=== PATIENT | male | born 1980 | race Caucasian/White ===

== ENCOUNTER 2023-11-01 22:47 | Emergency (ER) | payer BC, SELFPAY ==
--- NOTE | ~2023-11-01 | CT_ITS ---
EXAMINATION: CT cervical spine wo con DATE: 11/01/2023 23:58 INDICATION: Neck pain TECHNIQUE: Computed tomography (CT) of the cervical spine was performed without intravenous contrast. The dose-length product (DLP) was 522.23 mGy-cm. Automated exposure control and iterative reconstruc tion technique were employed. COMPARISON: None FINDINGS: Bone alignment is normal. There is no fracture. The vertebral body heights and intervertebr al disc spaces are normal. The odontoid process is intact. IMPRESSION: 1. No acute osseous abnormality. Reviewed, dictated and finalized at location F.
--- NOTE | ~2023-11-01 | CT_ITS ---
EXAMINATION: CT brain wo con INDICATION: Headache COMPARISON: None TECHNIQUE: Standard unenhanced head CT. The dose-length product (DLP) was 756.67 mGy-cm. The mA was a djusted according to patient size. Iterative reconstruction technique was employed. FINDINGS: No intracranial hemorrhage, acute infarction, or abnormal mass lesion. The ventricles are n ormal. No abnormal mass effect or midline shift. The soni-white matter differentiation is normal. The basal cisterns are patent. The orbits are normal. There is a polyp or mucous retention cyst of the r ight maxillary sinus. IMPRESSION: 1. No acute intracranial abnormality. Reviewed, dictated and finalized at location F.
--- NOTE | ~2023-11-01 | CT_ITS ---
EXAMINATION: CT facial bones wo con DATE: 11/01/2023 23:57 INDICATION: Facial pain TECHNIQUE: Computed tomography (CT) of the facial bones and maxillofacial region was performed withou t intravenous contrast. The dose-length product (DLP) was 550.77 mGy-cm. Automated exposure control a nd iterative reconstruction technique were employed. COMPARISON: None. FINDINGS: No facial fracture is identified. The globes and orbits are normal. The soft tissues are un remarkable. There is a polyp or mucous retention cyst of the right maxillary sinus. IMPRESSION: 1. No facial fracture identified. Reviewed, dictated and finalized at location F.
--- NOTE | ~2023-11-01 | XR_ITS ---
XR shoulder RT min 2V 11/02/2023 01:37 INDICATION: Right shoulder pain PROCEDURE: 4 views right shoulder COMPARISON: No prior studies for comparison. FINDINGS: Fracture, dislocation or subluxation is not identified. The soft tissues appear within norm al limits. No foreign bodies are identified. IMPRESSION: 1: NO ACUTE BONE OR JOINT ABNORMALITY IDENTIFIED. Reviewed, dictated and finalized at location A.
--- NOTE | ~2023-11-01 | XR_ITS ---
EXAMINATION: XR chest 2V 11/02/2023 01:37 INDICATION: Chest pain PROCEDURE: 2 view chest COMPARISON: No prior studies for comparison. FINDINGS: The lungs are clear. The cardiomediastinal silhouette is within normal limits. There are no pleural effusions. There is no pneumothorax suspected. IMPRESSION: 1: NO ACUTE CARDIOPULMONARY DISEASE. Reviewed, dictated and finalized at location A.
[2023-11-01 23:09] VITALS: BP 122/79; PULSE 69; RESP 15; TEMP 36.2; O2SAT 100
[2023-11-02 00:41] VITALS: BP 151/77; PULSE 77; RESP 18; O2SAT 100
[2023-11-02 00:47] VITALS: BP 139/80; PULSE 70; RESP 20; O2SAT 99
[2023-11-02 01:02] VITALS: BP 123/95; PULSE 72; RESP 18; O2SAT 100
[2023-11-02 01:17] VITALS: BP 128/87; PULSE 71; RESP 20; O2SAT 100
--- NOTE | 2023-11-02 01:17 | ECG_ITS ---
Measurements Intervals [place] Rate: 74 P: 29 GA: 161 QRS: 23 QRSD: 107 T: 22 QT: 429 QTc: 478 Interpretive Statements SINUS RHYTHM FREQUENT VENTRICULAR PREMATURE COMPLEXES CONSIDER INFERIOR INFARCT, AGE INDETERMINATE BASELINE ARTIFACT- I, II, AVR ABNORMAL ECG NO PREVIOUS ECG AVAILABLE FOR COMPARISON Electronically Signed On 11-02-2023 7:28:59 CDT by Frederic Aleman D.O.
--- NOTE | 2023-11-02 01:44 | ED.FALL ---
HPI - Fall General Chief Complaint: Fall Stated Complaint: GLF- L eye bruising/R shoulder pain/lumbar pain Time Seen by Provider: 11/01/23 23:16 History of Present Illness HPI Narrative: 43-year-old male presents emergency department for evaluation for injuries sustained from a ground level fall. Patient states he was walking when his right knee gave out causing him to fall to the ground. Patient did land on his right shoulder and also injured the left side of his face. Patient denies any loss of consciousness. Patient does take Plavix. Patient does complain of right shoulder pain, left facial pain and chest pain. Related Data Allergies Allergy/AdvReac Type Severity Reaction Status Date / Time Penicillins AdvReac Rash Verified 11/02/23 00:37 Review of Systems Review of Systems: All systems reviewed & are unremarkable except as noted in HPI and below Exam Narrative: APPEARANCE: Well appearing, no pain, no distress, well-nourished. HEAD: normocephalic, contusion to left eye. EYES: PERRLA/EOMI, conjunctivae clear. NOSE: Normal no drainage EARS:TMS clear with good light reflex. THROAT: Pharynx clear, no exudate. NECK: Supple. No adenopathy, no masses. RESPIRATORY: Airway patent, respirations nonlabored. Clear to auscultation bilaterally, no rales, rhonchi, wheezing. CARDIOVASCULAR: Regular rate and rhythm without murmurs rubs or gallops. ABDOMINAL: Soft, nontender, nondistended, normal bowel sounds MUSCULOSKELETAL: Moves all extremities. Tenderness to palpation of right shoulder with no deformity, normal range of motion NEURO: Alert. Cranial nerves II through XII intact. Good gait. Good coordination SKIN: Warm, dry. Normal Color Course Course Emergency Course: Patient was updated on his results and was discharged to home Vital Signs Vital signs: Vital Signs Temperature 97.2 F L 11/01/23 23:09 Pulse Rate 69 11/01/23 23:09 Respiratory Rate 15 11/01/23 23:09 Blood Pressure 122/79 11/01/23 23:09 Pulse Oximetry 100 11/01/23 23:09 Temperature 97.2 F L 11/01/23 23:09 Pulse Rate 72 11/02/23 03:45 Respiratory Rate 20 11/02/23 03:45 Blood Pressure 128/87 11/02/23 01:17 Pulse Oximetry 97 11/02/23 03:45 MDM - Fall MDM Narrative Medical decision making narrative: 43-year-old male present to the emergency department for evaluation after having a ground level fall. Patient reports he was having some chest pain after the fall. Patient does have a cardiac history. Patient is afebrile with no leukocytosis and a stable hemoglobin. Patient has no acute abnormalities on his CMP patient is negative serial troponins. CT head face and neck showed no acute abnormalities. Shoulder x-ray showed no acute abnormality chest x-ray showed no acute cardiopulmonary abnormality. Patient did feel improved with treatment. Patient was encouraged of close follow-up with his primary care physician and with cardiology. All questions concerns were addressed. Differential Diagnosis Differential diagnosis: Likely dislocation of shoulder region, compression fracture and concussion without loss of consciousness Lab Data Attestation: I reviewed the patient's lab results. 11/02/23 01:49 11/02/23 01:49 Labs: Lab Results 11/02/23 11/02/23 Range/Units 01:49 04:34 WBC 5.6 (4.5-10.0) K/mm3 RBC 4.41 L (4.6-6.20) M/mm3 Hgb 13.6 L (14.0-18.0) g/dL Hct 40.3 L (42.0-52.0) % MCV 91.4 (80-100) fl MCH 30.8 (26-34) pg MCHC 33.7 (32-36) g/dl RDW 13.3 (11.5-14.5) % Plt Count 175 (150-375) k/mm3 MPV 8.9 (7.4-10.4) fl Immature Gran % (Auto) 0.5 (0-0.5) % Neut % (Auto) 54.0 (45.5-73.1) % Lymph % (Auto) 35.5 (18.3-44.2) % [place] % (Auto) 5.2 (2.6-8.5) % Eos % (Auto) 4.1 (0-4.4) % Baso % (Auto) 0.7 (0.2-1.2) % Lymph # (Auto) 1.99 (0.9-3.2) K/mm3 [place] # (Auto) 0.3 (0.1-0.6) K/mm3 Eos # (Auto) 0.2 (0-0.3) K/mm3 Baso # (Au
[2023-11-02 01:55] LABS: Basophils Percent Auto 0.7 % (0.2-1.2); Eosinophils Absolute Auto 0.2 K/mm3 (0-0.3); Eosinophils Percent Auto 4.1 % (0-4.4); Hematocrit 40.3 % (42.0-52.0); Hemoglobin 13.6 g/dL (14.0-18.0); Immature Granulocyte Absolute 0.03 K/mm3 (0.00-0.031); Immature Granulocyte Percent A 0.5 % (0-0.5); Lymphocytes Absolute Auto 1.99 K/mm3 (0.9-3.2); Lymphocytes Percent Auto 35.5 % (18.3-44.2); Mean Corpuscular HGB Conc 33.7 g/dl (32-36); Mean Corpuscular Hemoglobin 30.8 pg (26-34); Mean Corpuscular Volume 91.4 fl (80-100); Mean Platelet Volume 8.9 fl (7.4-10.4); Monocytes Absolute Auto 0.3 K/mm3 (0.1-0.6); Monocytes Percent Auto 5.2 % (2.6-8.5); Platelet Count Result 175 k/mm3 (150-375); Red Blood Count 4.41 M/mm3 (4.6-6.20); Red Cell Distribution Width 13.3 % (11.5-14.5); White Blood Count 5.6 K/mm3 (4.5-10.0)
[2023-11-02 02:14] LABS: Alanine Aminotransferase 33 U/L (6-50); Albumin Level 4.9 g/dL (3.5-5.1); Alkaline Phosphatase 74 U/L (38-126); Anion Gap 11 mmol/L (8-16); Aspartate Amino Transferase 40 U/L (17-59); Bilirubin,Total 0.8 mg/dL (0.2-1.3); Blood Urea Nitrogen 15 mg/dL (9-20); Calcium 9.5 mg/dL (8.4-10.2); Carbon Dioxide 22 mmol/L (22-30); Chloride 107 mmol/L (98-107); Estimated CRCL calculation 152 ml/min; Estimated Glomerular Filt Rate > 60; Glucose 85 mg/dL (65-110); Potassium 3.2 mmol/L (3.4-5.0); Sodium 140 mmol/L (137-145)
[2023-11-02 02:17] LABS: Troponin I < 0.012 ng/mL (0.000-0.034)
[2023-11-02] MEDS: HYDROcodone/acetaminophen (*CRX) 5-325 MG TABLET 1 TAB PO (03:08)
[2023-11-02 03:45] VITALS: PULSE 72; RESP 20; O2SAT 97
[2023-11-02 05:01] LABS: Troponin I < 0.012 ng/mL (0.000-0.034)
== END 2023-11-02 05:40 | disposition home or self-care (01) ==
PROVIDERS: Emergency Provider Emergency Medicine; PCP Internal Medicine Gastroenterology
DX: S49.91XA Unspecified injury of right shoulder and upper arm, initial encounter (principal); S05.12XA Contusion of eyeball and orbital tissues, left eye, initial encounter; Z79.02 Long term (current) use of antithrombotics/antiplatelets; I49.3 Ventricular premature depolarization; R94.31 Abnormal electrocardiogram [ECG] [EKG]; W18.39XA Other fall on same level, initial encounter
CPT/HCPCS: 36415; 70450; 70486; 71046; 72125; 73030; 80053; 84484; 85025; 93005; 99284; A4565; A9270

== ENCOUNTER 2024-05-13 21:03 | Emergency (ER) | payer SELFPAY ==
--- NOTE | ~2024-05-13 | CT_ITS ---
EXAMINATION: CTA chest PE abdomen pel DATE: 05/13/2024 22:53 INDICATION: Chest pain. Elevated lipase. TECHNIQUE: Computed tomography angiography (CTA) of the chest was performed with 100 mL Omnipaque-350 intravenous contrast timed to evaluate the pulmonary arteries. Coronal maximum intensity projection 3D-reconstructions were created by the technologist. Computed tomography (CT) of the abdomen and pelv is was performed with intravenous contrast. Automated exposure control and iterative reconstruction t echnique were employed. The dose-length product was 2393.48 mGy-cm. COMPARISON: None. FINDINGS: CTA chest: The lungs demonstrate mild atelectasis. No pleural effusion. The heart size is normal. The re are coronary artery calcifications. No pericardial effusion. There is no pulmonary embolus. There is mild thoracic spondylosis. There is a chronic compression fracture of T4. CT abdomen and pelvis: The liver, gallbladder, spleen, pancreas, adrenal glands, and kidneys are norm al. There are no dilated loops of bowel. The appendix is normal. There is calcified atherosclerosis o f the aorta and many of the other arteries. There are no pathologically enlarged lymph nodes. There i s no free intraperitoneal fluid. There is mild lumbar spondylosis. IMPRESSION: 1. No pulmonary embolus. 2. Normal pancreas. Reviewed, dictated and finalized at location A.
--- NOTE | ~2024-05-13 | XR_ITS ---
EXAMINATION: XR chest 2V DATE: 05/13/2024 21:47 INDICATION: Chest pain. TECHNIQUE: Frontal and lateral views of the chest were obtained. COMPARISON: Chest 2 views 11/02/2023 FINDINGS: There is no pneumonia, pleural effusion, or pneumothorax. The heart size is normal. There i s a chronic compression fracture in thoracic spine. IMPRESSION: 1. No acute cardiopulmonary disease. Reviewed, dictated and finalized at location A.
--- NOTE | 2024-05-13 21:05 | ECG_ITS ---
Test Date: 2024-05-13 21:16:09 Measurements Intervals [place] Rate: 85 P: 14 MT: 158 QRS: 15 QRSD: 107 T: 76 QT: 370 QTc: 441 Interpretive Statements SINUS RHYTHM WITH OCCASIONAL VENTRICULAR PREMATURE COMPLEXES NONSPECIFIC T-WAVE ABNORMALITY No previous ECG available for comparison Electronically Signed On 05-14-2024 11:59:36 CDT by Didier Elkins M.D.
[2024-05-13 21:10] VITALS: BP 146/96; PULSE 86; RESP 18; TEMP 36.3; O2SAT 100
[2024-05-13 21:50] LABS: Basophils Absolute Auto 0.1 K/mm3 (0.0-0.1); Basophils Percent Auto 0.6 % (0.2-1.2); Eosinophils Absolute Auto 0.2 K/mm3 (0-0.3); Eosinophils Percent Auto 2.4 % (0-4.4); Hematocrit 46.3 % (42.0-52.0); Immature Granulocyte Absolute 0.03 K/mm3 (0.00-0.031); Immature Granulocyte Percent A 0.4 % (0-0.5); Lymphocytes Absolute Auto 2.42 K/mm3 (0.9-3.2); Lymphocytes Percent Auto 30.9 % (18.3-44.2); Mean Corpuscular HGB Conc 36.7 g/dl (32-36); Mean Corpuscular Hemoglobin 32.7 pg (26-34); Mean Platelet Volume 8.8 fl (7.4-10.4); Monocytes Absolute Auto 0.6 K/mm3 (0.1-0.6); Monocytes Percent Auto 8.2 % (2.6-8.5); Neutrophils Absolute Auto 4.5 K/mm3 (1.3-6.7); Neutrophils Percent Auto 57.5 % (45.5-73.1); Platelet Count Result 154 k/mm3 (150-375); Red Cell Distribution Width 12.9 % (11.5-14.5); White Blood Count 7.8 K/mm3 (4.5-10.0)
[2024-05-13 22:01] VITALS: O2SAT 98
[2024-05-13 22:01] LABS: Prothrombin Time 13.1 Seconds (11.1-14.7)
[2024-05-13 22:02] VITALS: BP 175/90; PULSE 87; RESP 18; O2SAT 97
[2024-05-13 22:02] LABS: Alanine Aminotransferase 37 U/L (6-50); Albumin Level 4.7 g/dL (3.5-5.1); Alkaline Phosphatase 71 U/L (38-126); Anion Gap 11 mmol/L (4-12); Aspartate Amino Transferase 37 U/L (17-59); Bilirubin,Total 0.8 mg/dL (0.2-1.3); Blood Urea Nitrogen 5 mg/dL (9-20); Carbon Dioxide 24 mmol/L (22-30); Chloride 100 mmol/L (98-107); Estimated CRCL calculation 145 ml/min; Estimated Glomerular Filt Rate > 60; Glucose 129 mg/dL (65-110); Lipase 604 U/L (23-300); Potassium 3.4 mmol/L (3.4-5.0); Sodium 135 mmol/L (137-145)
[2024-05-13 22:13] LABS: Troponin I < 0.012 ng/mL (0.000-0.034)
[2024-05-13] MEDS: ASPIRIN 81 MG CHEWABLE TABLET 324 MG PO (22:33)
[2024-05-13 22:50] VITALS: BP 157/101; PULSE 90; RESP 14; O2SAT 98
[2024-05-13] MEDS: NITROGLYCERIN SL 0.4 MG TABLET SUBLINGUAL (23:16)
[2024-05-13] MEDS: ONDANSETRON INJ 4 MG/2 ML VIAL IV PUSH (23:16)
[2024-05-13] MEDS: MORPHINE SULFATE (*CRX) 4 MG/ML INJ IV PUSH (23:16)
[2024-05-14] MEDS: ACETAMINOPHEN 500 MG TABLET 1000 MG PO (01:22)
[2024-05-14 01:39] VITALS: BP 154/99; PULSE 87; RESP 15; O2SAT 97
[2024-05-14 01:58] LABS: Troponin I < 0.012 ng/mL (0.000-0.034)
--- NOTE | 2024-05-14 02:16 | ED.GENADULT ---
HPI - General Adult General Chief complaint: Chest Pain Stated complaint: chest pain, lightheadedness, sob Time Seen by Provider: 05/13/24 22:26 History of Present Illness HPI narrative: Patient is a 43-year-old gentleman presents emergency department with chief complaint of chest discomfort. Patient reports that he has been having intermittent discomforts this morning states that pain radiates to his back patient did report that he had some stents placed in September the patient states that he also has anxiety and reports that and also had some palpitations during the episode. Related Data Allergies Allergy/AdvReac Type Severity Reaction Status Date / Time Penicillins AdvReac Rash Verified 05/13/24 21:03 Review of Systems Review of Systems: A 10 system review of systems was completed on the patient and is negative except for what is stated in the HPI. Nursing and ancillary documentation was reviewed. Exam Narrative: GENERAL: Well-appearing, well-nourished, and in no acute distress. HEAD: Normocephalic, atraumatic. EYES: PERRLA and EOMI. ENT: Nares clear, no rhinorrhea or epistaxis. Mucous membranes moist. NECK: Supple. CHEST: Clear to auscultation. No respiratory distress. HEART: Regular rate and rhythm. No murmur heard. Normal peripheral pulses. ABDOMEN: Soft, nontender, nondistended, normal active bowel sounds. EXTREMITIES: Normal range of motion. No edema. SKIN: Warm, dry, no rash. NEURO: No focal deficits. Alert and oriented x3. PSYCH: Normal mood and affect. Course Vital Signs Vital signs: Vital Signs Temperature 36.3 C L 05/13/24 21:10 Pulse Rate 86 05/13/24 21:10 Respiratory Rate 18 05/13/24 21:10 Blood Pressure 146/96 H 05/13/24 21:10 Pulse Oximetry 100 05/13/24 21:10 Oxygen Delivery Room Air 05/13/24 21:10 Temperature 36.3 C L 05/13/24 21:10 Pulse Rate 87 05/14/24 01:39 Respiratory Rate 15 05/14/24 01:39 Blood Pressure 154/99 H 05/14/24 01:39 Pulse Oximetry 97 05/14/24 01:39 Oxygen Delivery Room Air 05/13/24 21:10 Medical Decision Making [facility] Narrative Medical decision making narrative: Differential diagnosis includes ACS, pulmonary embolism, pancreatitis, Laboratory studies were obtained on the patient which did show a mildly elevated lipase at 604 initial troponin was negative repeat troponin 3 hour level was negative. EKG showed no acute ischemic changes Vital Signs Vital Signs: Vital Signs Temperature 36.3 C L 05/13/24 21:10 Pulse Rate 86 05/13/24 21:10 Respiratory Rate 18 05/13/24 21:10 Blood Pressure 146/96 H 05/13/24 21:10 Pulse Oximetry 100 05/13/24 21:10 Oxygen Delivery Room Air 05/13/24 21:10 Temperature 36.3 C L 05/13/24 21:10 Pulse Rate 87 05/14/24 01:39 Respiratory Rate 15 05/14/24 01:39 Blood Pressure 154/99 H 05/14/24 01:39 Pulse Oximetry 97 05/14/24 01:39 Oxygen Delivery Room Air 05/13/24 21:10 Lab Data 05/13/24 21:43 05/13/24 21:43 Labs: Lab Results 05/13/24 05/14/24 Range/Units 21:43 01:28 WBC 7.8 (4.5-10.0) K/mm3 RBC 5.20 (4.6-6.20) M/mm3 Hgb 17.0 D (14.0-18.0) g/dL Hct 46.3 (42.0-52.0) % MCV 89.0 (80-100) fl MCH 32.7 (26-34) pg MCHC 36.7 H (32-36) g/dl RDW 12.9 (11.5-14.5) % Plt Count 154 (150-375) k/mm3 MPV 8.8 (7.4-10.4) fl Immature Gran % (Auto) 0.4 (0-0.5) % Neut % (Auto) 57.5 (45.5-73.1) % Lymph % (Auto) 30.9 (18.3-44.2) % [place] % (Auto) 8.2 (2.6-8.5) % Eos % (Auto) 2.4 (0-4.4) % Baso % (Auto) 0.6 (0.2-1.2) % Lymph # (Auto) 2.42 (0.9-3.2) K/mm3 [place] # (Auto) 0.6 (0.1-0.6) K/mm3 Eos # (Auto) 0.2 (0-0.3) K/mm3 Baso # (Auto) 0.1 (0.0-0.1) K/mm3 Abs Immat Gran (auto) 0.03 (0.00-0.031) K/mm3 Absolute Neuts (auto) 4.5 (1.3-6.7) K/mm3 Absolute Nucleated RBC 0.000 (0.0-0.012) K/mm3 Nucleated RBC % 0.0 (0.0-0.2) % PT 13.1 (11.1-14
[2024-05-14 02:55] VITALS: BP 158/90; PULSE 84; RESP 15; O2SAT 96
== END 2024-05-14 03:00 | disposition home or self-care (01) ==
PROVIDERS: Emergency Provider Emergency Medicine; PCP Internal Medicine Gastroenterology
DX: R07.89 Other chest pain (principal); R94.31 Abnormal electrocardiogram [ECG] [EKG]
CPT/HCPCS: 36415; 71046; 71275; 74177; 80053; 83690; 84484; 85025; 85610; 85730; 93005; 96374; 96375; 99284; A9270; J2270; J2405; Q9967

== ENCOUNTER 2025-01-01 11:23 | Emergency (ER) | payer BC, SELFPAY ==
--- NOTE | ~2025-01-01 | XR_ITS ---
EXAMINATION: XR chest 2V 01/01/2025 12:07 INDICATION: Chest pain PROCEDURE: 2 view chest COMPARISON: 08/19/2024 FINDINGS: The lungs are clear. The cardiomediastinal silhouette is within normal limits. There are no pleural effusions. There is no pneumothorax suspected. IMPRESSION: 1: NO ACUTE CARDIOPULMONARY DISEASE. Reviewed, dictated and finalized at location B.
--- NOTE | ~2025-01-01 | CT_ITS ---
CT abdomen pelvis w con Ordering provider: Cecilio Kaiser MD History: 44 years Male with . RLQ AP . Comparison: August 19, 2024 Technique: CT abdomen and pelvis with IV and without oral contrast. Automated exposure control and it erative reconstruction technique were employed. The dose-length product was 1296.05 mGy-cm. 100 mL Om nipaque 350 was given IV. Findings: VISUALIZED LOWER CHEST: Normal. UPPER ABDOMINAL ORGANS: Liver: Fat infiltration. Gallbladder: Contracted. Spleen: Normal. Stomach/duodenum: Thickening in the lower esophagus suggestive of ileus and ascites. Pancreas: Normal. Adrenals: Normal. Kidneys: Normal. PELVIC ORGANS: The bladder shows thickened wall. Evaluation for cystitis is advised. BOWEL AND MESENTERY: Colon: No evidence of diverticulitis.. Normal appendix. Small Bowel: Normal. No obstruction. Peritoneum/mesentery: No free air or free fluid. No mesenteric lymphadenopathy. Small mesenteric lymp h nodes are noted. RETROPERITONEUM: Moderate atheromatous disease of the abdominal aorta with intramural thrombi athero sclerotic changes in both iliac arteries with slight dilatation of the right is noted. The right mary grace ures 2.1 cm and the left measures 1.8 cm. No retroperitoneal lymphadenopathy. MUSCULOSKELETAL: Superficial soft tissues: The superficial soft tissues are normal. Bones: Age appropriate degenerative changes of the spine. IMPRESSION: 1. No evidence of appendicitis, diverticulitis or intestinal obstruction. 2. Fat infiltration of the liver. 3. Slight dilatation of the right internal iliac artery with intramural thrombus. 4. Thickened distal esophagus suggestive of reflux esophagitis. Reviewed, dictated and finalized at location A. IMPRESSION: 1. No evidence of appendicitis, diverticulitis or intestinal obstruction. 2. Fat infiltration of the liver. 3. Slight dilatation of the right internal iliac artery with intramural thromb us. 4. Thickened distal esophagus suggestive of reflux esophagitis.
--- NOTE | 2025-01-01 11:25 | ECG_ITS ---
Test Date: 2025-01-01 11:31:17 Measurements Intervals [place] Rate: 63 P: 171 WA: 157 QRS: 157 QRSD: 114 T: 114 QT: 397 QTc: 408 Interpretive Statements SINUS RHYTHM WITH OCCASIONAL VENTRICULAR PREMATURE COMPLEXES ARM LEADS REVERSED [INVERTED P AND QRS IN I] Compared to ECG 08/19/2024 14:58:43 Ventricular premature complex(es) now present Electronically Signed On 01-01-2025 12:45:44 CDT by Ashley Servin M.D.
--- OUTSIDE RECORDS SUMMARY | 2025-01-01 11:27 | XMS_ITS | Referral Summary ---
Author Organization [facility] Address [address] [place] [address] Care Team Providers Care Hem Marker Name Role Phone Duglas Campbell MD Primary Care Provider Allergies Active Allergy Reactions Criticality Noted Date Comments Penicillins Anaphylaxis High 10/20/2023 Medications ticagrelor (BRILINTA) 90 mg tablet Take 1 tablet (90 mg total) by mouth 2 (two) times a day Active metoprolol tartrate (LOPRESSOR) 50 mg immediate release tablet Take 1 tablet (50 mg total) by mouth 2 (two) times a day Active buPROPion SR (WELLBUTRIN SR) 150 mg 12 hr tablet Take 1 tablet (150 mg total) by mouth daily Active atorvastatin (LIPITOR) 80 mg tablet Take 1 tablet (80 mg total) by mouth daily Active oxyCODONE 5 mg tablet, oral only Take 5 mg by mouth every 6 (six) hours as needed Active gabapentin (NEURONTIN) 300 mg capsule Take 1 capsule (300 mg total) by mouth 3 (three) times a day Active losartan (COZAAR) 50 mg tablet Take 1 tablet (50 mg total) by mouth daily Active dapagliflozin propanediol (FARXIGA) 10 mg tablet 1 tablet (10 mg total) daily Active clonazePAM (KlonoPIN) 1 mg disintegrating tablet Take 1 tablet (1 mg total) by mouth 4 (four) times a day as needed for seizures Active midodrine (PROAMATINE) 5 mg tabletIndications:S ymptomatic Orthostatic Hypotension Take 1 tablet (5 mg total) by mouth 2 (two) times a day Active ondansetron ODT (ZOFRAN-ODT) 4 mg disintegrating tablet Take 1 tablet (4 mg total) by mouth every 8 (eight) hours as needed for nausea or vomiting 20 tablet Active Social History Tobacco Use Types Packs/Day Years Used Date Smoking Tobacco: Never Tobacco Cessation:Counseling Given: Not Answered Personal Safety Answer Date Recorded Have you ever been in or are you currently in a harmful physical or emotional relationship or is someone making you feel afraid or unsafe? Denies 11/04/2023 Sex and Gender Information Value Date Recorded Sex Assigned at Not on file Legal Sex Male 5:38 PM CDT Gender Identity Not on file Sexual Orientation Not on file Last Filed Vital Signs Vital Sign Reading Time Taken Comments Blood Pressure 144/86 11/04/2023 3:00 PM CDT Pulse 93 11/04/2023 3:45 PM CDT Temperature 36.1 C (97 F) 11/04/2023 8:55 AM CDT Respiratory Rate 20 11/04/2023 8:55 AM CDT Oxygen Saturation 98% 11/04/2023 3:45 PM CDT Inhaled Oxygen Concentration - - Weight 113.4 kg (250 lb) 11/04/2023 8:55 AM CDT Height 185.4 cm (6' 1 ) 11/03/2023 3:51 PM CDT Body Mass Index 32.98 11/03/2023 3:51 PM CDT Plan of Treatment Not on file [place] [address] [place] [id number] [facility] [place]AN [place] [id number] Care Teams Hem Marker Relationship Specialty Start Date End Date Duglas Campbell MD [address] [address] PCP - General Gastroenterology 10/20/23
--- OUTSIDE RECORDS SUMMARY | 2025-01-01 11:27 | XMS_ITS | Clinical Summary ---
Author Organization [facility] Address [address] [place] [address] Phone Care Team Providers Care Pile Fabric Knitter Name Role Phone Duglas Campbell MD Primary Care Provider Allergies Active Allergy Reactions Criticality Noted Date Comments Penicillins Unknown 11/02/2023 Medications aspirin EC 81 MG Tablet Delayed Response Take 81 mg by mouth daily. Active atorvastatin (LIPITOR) 80 MG Tablet Take 80 mg by mouth nightly. Active buPROPion (WELLBUTRIN) 150 MG XL tablet Take 1 Tablet by mouth daily. Active clonazePAM (KlonoPIN) 1 MG Tablet Take 1 mg by mouth 4 times daily as needed. Active Farxiga 10 MG Tablet Take 1 Tablet by mouth daily. Active gabapentin (NEURONTIN) 100 MG Capsule Take 100 mg by mouth 3 times daily. 10/22/2023 Active metoprolol tartrate (LOPRESSOR) 50 MG Tablet Take 50 mg by mouth 2 times daily. Active midodrine (PROAMATINE) 5 MG Tablet 5 mg 2 times daily. For 1 more day 10/25/2023 Active oxyCODONE (ROXICODONE) 5 MG Tablet Take 5 mg by mouth every 6 hours as needed for Severe pain. 10/23/2023 Active ticagrelor (BRILINTA) 90 MG Tablet Take 90 mg by mouth 2 times daily. Active Blood Glucose Monitoring Suppl Device Diagnosis: Diabetes type 2 Blood testing frequency: 3 times a day 1 Each 11/03/2023 Active Lancets Misc Use as directed 200 Lancet 1 11/03/2023 Active Glucose Blood Strip Diagnosis: Diabetes type 2 Blood testing frequency: 3 times a day 200 Strip 1 11/03/2023 Active Resolved Problems Problem Noted Date Diagnosed Date Resolved Date Syncope and collapse 11/02/2023 024 Social History Tobacco Use Types Packs/Day Years Used Date Smoking Tobacco: Never Smokeless Tobacco: Never Tobacco Cessation:Counseling Given: Not Answered Alcohol Use Standard Drinks/Week Comments Yes 7 (1 standard drink = 0.6 oz pur e alcohol) [place] Utilities Answer Date Recorded In the past 12 months has th e [employer], gas, oil, or water [employer] threatened to shut off services in your home? No 11/02/2023 Social Connection and Isolation Panel [NHANES] A nswer Date Recorded In a typical week, how many times do you talk on the phone with family, friends, or neighbors? Twice a week 11/02/19 How often do you get togethe r with friends or relatives? Three times a week 11/02/2023 How often do you attend chur ch or jehovah's witness services? 1 to 4 times per year 11/02/2023 Do you belong to any clubs o r organizations such as hindu groups, unions, fraternal or athletic groups, or school groups? No 11/02/2023 How often do you attend meet ings of the clubs or organizations you belong to? Never 11/02/2023 Are you , , di vorced, , never , or living with a partner? 11/02/2023 AUDIT-C Answer Date Recorded Q1: How often do you have a drink containing alc ohol? 2-4 times a month 11/02/2023 Q2: How many drinks containi ng alcohol do you have on a typical day when you are drinking? 5 or 6 11/02/2023 Q3: How often do you have si x or more drinks on one occasion? Monthly 11/02/2023 Overall Financial Resource Strain (CARDIA) Answe r Date Recorded How hard is it for you to pa y for the very basics like food, housing, medical care, and heating? Patient declined 11/02/2023 [facility] [place] of Occupat ional Health - Occupational Stress Questionnaire Answer Date Recorded Do you feel stress - tense, restless, nervous, or anxious, or unable to sleep at night because your mind is troubled all the time - these days? Only a little 11/02/2023 Exercise Vital Sign Answer Date Recorde d On average, how many days pe r week do you engage in moderate to strenuous exercise (like a brisk walk)? 3 days 11/02/2023 On average, how many minutes do you engage in exercise at this level? 30 min 11/02/2023 Hunger Vital Sign Answer Date Recorded Within the past 12 months, y ou worried that your food would run out before you got the money to buy more. Never true 11/02/19 Within the past 12 months, t he food you bought just didn't last and you didn't have money to get more. Never true 11/02/2023 PRAPARE - Transportation Answer Date Re corded In the past 12 months, has l ack of transportation kept you from medical appointments or from getting medications? No 10/11 In the past 12 months, has l ack of transportation kept you from meetings, work, or from getting things needed for daily living? No 11/02/2023 Housing Stability Vital Sign Answer George e Recorded In the last 12 months, was t here a time when you were not able to pay the mortgage or rent on time? Patient declined 11/02/19 In the last 12 months, how many places have you lived? 1 11/02/2023 In the last 12 months, was t here a time when you did not have a steady place to sleep or slept in a long term (including now)? No 11/02/2023 Sex and Gender Information Value Date Recorded Sex Assigned at Not on file Legal Sex Male 9:35 AM CDT Gender Identity Not on file Sexual Orientation Not on file Last Filed Vital Signs Vital Sign Reading Time Taken Comments Blood Pressure 142/68 11/04/2023 6:20 AM CDT Pulse 77 11/04/2023 6:20 AM CDT Temperature 36.6 C (97.9 F) 11/04/2023 6:20 AM CDT Respiratory Rate 16 11/04/2023 6:20 AM CDT Oxygen Saturation 98% 11/04/2023 6:20 AM CDT Inhaled Oxygen Concentration - - Weight 114.8 kg (253 lb) 11/04/2023 2:35 AM CDT Height 185.4 cm (6' 1 ) 11/04/2023 2:35 AM CDT Body Mass Index 33.38 11/04/2023 2:35 AM CDT Plan of Treatment Health Maintenance Due Date Last Done Comments Hepatitis C Virus (HCV) Screening 1978 TdaP Immunization 1978 Hepatitis B Immunization (1 of 3 - 19+ 3-dose series) 1997 Pneumococcal Immunization Combined (1 of 2 - PCV) 1997 Colonoscopy 2023 Colorectal Cancer Screening 2023 Influenza Immunization (#1) 2024 SARS-COV-2 Immunization (3 - 2023- season) 2024 01/05/2021, 12/06/2020 Respiratory Syncytial Virus (RSV) Immunization (Adult) (1 - 1-dose 75+ series) 2053 Meningococcal Immunization (ACWY) Aged Out No longer eligible b ased on patient's age to complete this topic Rotavirus Immunization Aged Out No lo nger eligible based on patient's age to complete this topic Insurance [place]ID [place] [id number] Advance Directives * Full Code (Latest Code Status on File) Date Activated Date Inactivated Comments 11/02/2023 3:32 PM 11/03/2023 4:53 PM CPR-Full Rommel atment: FULL ARREST: Attempt Resuscitation/CPR wit intubation and mechanical ventilation. PRE-ARREST: Use entire range of life support measures to stabilize the patient. Care Teams Pile Fabric Knitter Relationship Specialty Start Date End Date Duglas Campbell MD [address] [place] [address] PCP - General Internal Medicine 11/02/23
--- OUTSIDE RECORDS SUMMARY | 2025-01-01 11:27 | XMS_ITS | CONTINUITY OF CARE DOCUMENT ---
Author Name arletyvonnekadi Address Unknown Organization [facility] Address [address] [place] [address] Phone [phone] Care Team Providers Care Band Director Name Role Phone Dickson HAYDEN, Dinorah Unavailable SHALA KOENIG MD Unavailable [phone] SHALA KOENIG MD Unavailable INSURANCE PROVIDERS Payer name Policy type / Coverage type [employer] ID [facility] [id number]
--- OUTSIDE RECORDS SUMMARY | 2025-01-01 11:27 | XMS_ITS | Encounter Summary ---
Author Organization [facility] Address 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 Swapna calle/Dr. 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 No 10/20/2023 Food Insecurity Answer Date Recorded Social/Environmental Concerns No concerns Transportation Needs Answer Date Record ed Social/Environmental Concerns No concerns Housing Stability Answer Date Recorded Social/Environmental Concerns No concerns Utility Needs Answer Date Recorded Social/Environmental Concerns No concerns Sex and Gender Information Value Date Recorded Sex Assigned at Not on file Legal Sex Male 12:43 PM [employer] Gender Identity Not on file Sexual Orientation Not on file documented as of this encounter Plan of Treatment Not on file documented as of this encounter Visit Diagnoses Not on filedocumented in this encounter
--- OUTSIDE RECORDS SUMMARY | 2025-01-01 11:27 | XMS_ITS | Data Portability ---
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 Plan of Treatment Reminders Order Date Submit Date Provider Last Modified By Organization Details Last Modified Time Details Appointments None recorded . Lab PSA, total, serum or plasma 2022 023 [employer] [facility], [address] [place] [address], [address], [place], [address], 4 10:02:21 HbA1c (hemoglo bin A1c), blood 2022 023 [email or web address] In-Office Order, Internal Use Only DO Not Attach Compendium DO Not Attach Compendium, Do Not Delete/merge, [id number] 14:59:42 CMP, serum or plasma 2022 023 [employer] [facility], [address] [place] [address], [address], [place], [address], 4 10:02:01 lipid panel, serum 2022 023 [employer] [facility], [address] [place] [address], [address], [place], [address], 4 10:02:12 lipid panel, serum 2017 018 [facility], [address], [address], [place], [address], 8 13:16:39 TSH + free T4, serum 2017 018 [facility], [address], [address], [place], [address], 8 13:16:40 T3, free, serum or plasma 2017 018 [facility], [address], [address], [place], [address], 8 13:16:28 CMP, serum or plasma 2017 018 [facility], [address], [address], [place], [address], 8 11:29:32 lipid panel, serum 2016 017 [email or web address] [facility], [address], [address], [place], [address], 7 13:33:11 CMP, serum or plasma 2016 017 [email or web address] [facility], [address], [address], [place], [address], 7 13:33:11 TSH + free T4, serum 2016 017 [email or web address] [facility], [address], [address], [place], [address], 7 13:33:11 Referral diabetic nutritio n educatio n referral [address] [facility], [address] [place], [address], 4 22:56:02 Procedures None recorded . Surgeries None recorded . Imaging MRI, foot, w/o contrast 2016 017 [facility] ([facility]), [address] [place], [address], 7 14:56:35 US, thyroid 2016 017 [facility] ([facility]), [address] [place], [address], 7 05:17:46 Medication Orders Farxiga 10 [address] [id number], [address] [place], [place], [id number], 3 14:59:47 metformi n 500 mg tablet [address] [facility] #[id number], [address] [place], [id number], 3 14:59:56 metoprol ol tartrate 50 mg tablet [address] #[id number], [address] [place], [address], 3 14:39:39 tramadol 50 mg tablet 2016 017 [place] [address] [facility], [address] [place], [address], 8 13:14:04 fenofibr ate 54 mg tablet [address] #[id number], [address] [place], [address], 3 14:34:20 metoprol ol tartrate 50 mg tablet 2016 017 [email or web address] [id number], [address], [place], [address], 14:39:39 hydrocod one 5 mg-aceta minophen 325 mg tablet 2015 016 [email or web address] [id number], [address], [place], [place], [id number], 13:00:48 Patient TargetsNo targets recorded. Patient Instructions Encounter Date Encounter Id Patient Instructions Last Modified By Organization Details Last Modified Time 05/28/2023 [id number] learning about type 2 diabetes [email or web address] Not available 05/28/2023 14:59:41 type 2 diabetes: care instructions [email or web address] Not available 05/28/2023 14:59:41 learning about high blood pressure [email or web address] Not available 05/28/2023 14:59:42 high cholesterol : care instructions [email or web address] Not available 05/28/2023 14:59:42 Reason for Referral Diabetic Nutrition Education Referral for Type 2 diabetes mellitus New onset DM Referring Physician: Duglas Campbell, Internal Medicine, Encounter Date: 05/28/2023 Results Created Date Observation Date Name Description Value Unit Range Abnormal Flag Note LastModifiedBy Organization Detail LastModifiedTime 05/28/20 23 05/28/2023 HbA1c (hemo globi n A1c), blood HbA1c 7.2 Not Available In-Office Order Internal Use Only DO Not Attach Compendium DO Not Attach Compendium, Do Not Delete/merge, [id number] 05/28/2023 14:44:43 10/21/19 24 10/21/2023 Compr ehens rachid metab olic 2000 panel - Serum or Plasm a sodium [moles/volum e] in serum or plasma 143 mmol/ L low: 136mmo l/Lhig h: 145mmo l/L SODIU M 143 136 - 145 mmol/ L 10/20 1:06 AM CDT [facility] Not Available Not Available 10/06/2024 03:38:53 10/21/19 24 10/21/2023 Compr ehens rachid metab olic 1999 panel - Serum or Plasm a potassium [moles/volum e] in serum or plasma 3.5 mmol/ L low: 3.5mmo l/Lhig h: 5mmol/ L POTAS SIUM 3.5 3.5 - 5.0 mmol/ L 10/20 1:06 AM [facility] Not Available Not Available 10/06/2024 03:38:53 10/21/19 24 10/21/2023 Compr ehens rachid metab olic 1999 panel - Serum or Plasm a chloride 103 mmol/ L low: 98mmol /Lhigh : 107mmo l/L CHLOR KALINA 103 98 - 107 mmol/ L 10/20 1:06 AM [facility]NOTE 3] [facility] Not Available Not Available 10/06/2024 03:38:53 10/21/19 24 10/21/2023 Compr ehens rachid metab olic 1999 panel - Serum or Plasm a carbon dioxide, total [moles/volum e] in serum or plasma 26 mmol/ L low: 22mmol /Lhigh : 29mmol /L CO2 26 22 - 29 mmol/ L 10/20 1:06 AM [facility][NOTE 3] [employer] [facility] Not Available Not Available 10/06/2024 03:38:53 10/21/19 24 10/21/2023 Compr ehens rachid metab olic 1999 panel - Serum or Plasm a calcium 9.6 mg/dL low: 8.6mg/ dLhigh : 10.2mg /dL CALCI UM 9.6 8.6 - 10.2 mg/dL 10/20 1:06 AM [facility]NOTE 3] [facility] Not Available Not Available 10/06/2024 03:38:53 10/21/19 24 10/21/2023 Compr ehens rachid metab olic 1999 panel - Serum or Plasm a BUN 9 mg/dL low: 6mg/dL high: 20mg/d L BUN 9 6 - 20 mg/dL 10/20 1:06 AM [facility]NOTE 3] [facility] Not Available Not Available 10/06/2024 03:38:53 10/21/19 24 10/21/2023 Compr ehens rachid metab olic 1999 panel - Serum or Plasm a creatinine [mass/volume ] in serum or plasma 0.99 mg/dL low: 0.67mg /dLhig h: 1.17mg /dL CREAT ININE 0.99 0.67 - 1.17 mg/dL 10/20 1:06 AM [facility] Not Available Not Available 10/06/2024 03:38:53 10/21/19 24 10/21/2023 Compr ehens rachid metab olic 1999 panel - Serum or Plasm a glucose [mass/volume ] in serum or plasma 105 mg/dL low: 74mg/d Lhigh: 99mg/d L high GLUCO SE 105 (H) 74 - 99 mg/dL 10/20 1:06 AM [facility] Not Available Not Available 10/06/2024 03:38:53 10/21/19 24 10/21/2023 Compr ehens rachid metab olic 1999 panel - Serum or Plasm a total protein 7.4 g/dL low: 6.7g/d Lhigh: 8.6g/d L TOTAL PROTE IN 7.4 6.7 - 8.6 g/dL 10/20 1:06 AM [facility] Not Available Not Available 10/06/2024 03:38:53 10/21/19 24 10/21/2023 Compr ehens rachid metab olic 1999 panel - Serum or Plasm a albumin 4.5 g/dL low: 3.5g/d Lhigh: 5.2g/d L ALBUM IN 4.5 3.5 - 5.2 g/dL 10/20 1:06 AM [facility] Not Available Not Available 10/06/2024 03:38:53 10/21/19 24 10/21/2023 Compr ehens rachid metab olic 2000 panel - Serum or Plasm a bilirubin total 0.4 mg/dL low: 0.3mg/ dLhigh : 1.2mg/ dL BILIR UBIN TOTAL 0.4 0.3 - 1.2 mg/dL 10/20 1:06 AM [facility] Not Available Not Available 10/06/2024 03:38:53 10/21/19 24 10/21/2023 Compr ehens rachid metab olic 1999 panel - Serum or Plasm a alkaline phosphatase 67 U/L low: 40U/Lh igh: 129U/L ALKAL INE PHOSP HATAS E 67 40 - 129 U/L 10/20 1:06 AM [facility] Not Available Not Available 10/06/2024 03:38:53 10/21/19 24 10/21/2023 Compr ehens rachid metab olic 2000 panel - Serum or Plasm a AST 30 U/L high: 41U/L AST 30 <41 U/L 10/20 1:06 AM [facility] Not Available Not Available 10/06/2024 03:38:53 10/21/19 24 10/21/2023 Compr ehens rachid metab olic 1999 panel - Serum or Plasm a alanine aminotransfe rase [enzymatic activity/vol ume] in blood 29 U/L high: 42U/L ALT 29 <42 U/L 10/20 1:06 AM [facility] Not Available Not Available 10/06/2024 03:38:53 10/21/19 24 10/21/2023 Compr ehens rachid metab olic 1999 panel - Serum or Plasm a glomerular filtration rate/1.73 sq M.predicted [volume rate/area] in serum, plasma or blood by creatinine-b ased formula (CKD-epi 2020) text: >=60 mL/min /1.73 sq meter GFR >60 >=60 mL/mi n/1.7 3 sq meter 10/20 1:06 AM [facility] Not Available Not Available 10/06/2024 03:38:53 10/21/19 24 10/21/2023 Compr ehens rachid metab olic 2000 panel - Serum or Plasm a anion gap 14 mmol/ L low: 8mmol/ Lhigh: 16mmol /L ANION GAP 14 8 - 16 mmol/ L 10/20 1:06 AM CDT [facility] Not Available Not Available 10/06/2024 03:38:53 10/21/19 24 10/21/2023 Compr ehens rachid metab olic 1999 panel - Serum or Plasm a Unknown Analyte Sample s contai deirdre indocy anine green cause interf erence s on Total and/or Direct Biliru bin and must not be measur ed. Sampl es conta ining indoc parmjit e green cause inter feren sheela on Total and/o r Direc t Bilir ubin and must not be measu red. Not Available Not Available 10/06/2024 03:38:53 10/21/19 24 10/21/2023 Compr ehens rachid metab olic 1999 panel - Serum or Plasm a interpretati on and review of laboratory results Abnorm al Not Available Not Available 03:38:53 10/21/19 24 10/21/2023 CBC W Auto Diffe renti al panel - Blood leukocytes [#/volume] in blood 6.3 K/uL low: 4K/uLh igh: 9.8K/u L WBC 6.3 4.0 - 9.8 K/uL 10/20 12:43 AM CD [facility] Not Available Not Available 10/06/2024 03:38:52 10/21/19 24 10/21/2023 CBC W Auto Diffe renti al panel - Blood RBC 4.43 text: 4.50 - 5.40 M/uL low RBC 4.43 (L) 4.50 - 5.40 M/uL 10/20 12:43 AM CDT [facility] Not Available Not Available 10/06/2024 03:38:52 10/21/19 24 10/21/2023 CBC W Auto Diffe renti al panel - Blood hemoglobin 13.7 g/dL low: 13.6g/ dLhigh : 16.5g/ dL HEMOG LOBIN 13.7 13.6 - 16.5 g/dL 10/20 12:[address] [facility] Not Available Not Available 10/06/2024 03:38:52 10/21/1910/21/2023 CBC W Auto Diffe renti al panel - Blood hematocrit [volume fraction] of blood by automated count 40.9 % low: 40%hig h: 48% HEMAT OCRIT 40.9 40.0 - 48.0 % 10/20 12:[address] [facility] Not Available Not Available 10/06/2024 03:38:52 10/21/19 24 10/21/2023 CBC W Auto Diffe renti al panel - Blood MCV 92.3 fL low: 82fLhi gh: 99fL MCV 92.3 82.0 - 99.0 fL 10/20 12:[address] [facility] Not Available Not Available 10/06/2024 03:38:52 10/21/19 24 10/21/2023 CBC W Auto Diffe renti al panel - Blood MCH 30.9 pg low: 27.2pg high: 32.6pg MCH 30.9 27.2 - 32.6 pg 10/20 12:43 AM [facility] Not Available Not Available 10/06/2024 03:38:52 10/21/19 24 10/21/2023 CBC W Auto Diffe renti al panel - Blood MCHC 33.5 g/dL low: 31.5g/ dLhigh : 35.5g/ dL MCHC 33.5 31.5 - 35.5 g/dL 10/20 12:[address] [facility] Not Available Not Available 10/06/2024 03:38:52 10/21/1910/21/2023 CBC W Auto Diffe renti al panel - Blood RDW 12.9 % low: 11.5%h igh: 14.5% RDW 12.9 11.5 - 14.5 % 10/20 12:[address] [facility] Not Available Not Available 10/06/2024 03:38:52 10/21/19 24 10/21/2023 CBC W Auto Diffe renti al panel - Blood RDW-stdev 43.1 fL low: 37.1fL high: 48.7fL RDW-S TDEV 43.1 37.1 - 48.7 fL 10/20 12:[address] [facility] Not Available Not Available 10/06/2024 03:38:52 10/21/19 24 10/21/2023 CBC W Auto Diffe renti al panel - Blood platelets [#/volume] in blood by automated count 146 K/uL low: 140K/u Lhigh: 350K/u L PLATE LETS 146 140 - 350 K/uL 10/20 12:[address] [facility] Not Available Not Available 10/06/2024 03:38:52 10/21/19 24 10/21/2023 CBC W Auto Diffe renti al panel - Blood MPV 8.5 fL low: 9.3fLh igh: 12.4fL low MPV 8.5 (L) 9.3 - 12.4 fL 10/20 12:[address] [facility] Not Available Not Available 10/06/2024 03:38:52 10/21/19 24 10/21/2023 CBC W Auto Diffe renti al panel - Blood neutrophils 67 % NEUTR OPHIL S 67 % 10/20 12:43 AM [facility] Not Available Not Available 10/06/2024 03:38:52 10/21/19 24 10/21/2023 CBC W Auto Diffe renti al panel - Blood lymphocytes/ 100 leukocytes in blood by automated count 22 % LYMPH OCYTE S 22 % 10/20 12:43 AM [facility] Not Available Not Available 10/06/2024 03:38:52 10/21/19 24 10/21/2023 CBC W Auto Diffe renti al panel - Blood monocytes 5 % MONOC YTES 5 % 10/20 12:[address] [facility] Not Available Not Available 10/06/2024 03:38:52 10/21/19 24 10/21/2023 CBC W Auto Diffe renti al panel - Blood eosinophils 4 % EOSIN OPHIL S 4 % 10/20 12:[address] [facility] Not Available Not Available 10/06/2024 03:38:52 10/21/19 24 10/21/2023 CBC W Auto Diffe renti al panel - Blood basophils 1 % BASOP HILS 1 % 10/20 12:[address] [facility] Not Available Not Available 10/06/2024 03:38:52 10/21/19 24 10/21/2023 CBC W Auto Diffe renti al panel - Blood immature granulocytes 1 % IMMAT URE GRANU LOCYT ES 1 % 10/20 12:[address] [facility] Not Available Not Available 10/06/2024 03:38:52 10/21/19 24 10/21/2023 CBC W Auto Diffe renti al panel - Blood neutrophils [#/volume] in blood by automated count 4.21 K/uL low: 1.9K/u Lhigh: 7K/uL NEUTR OPHIL ABSOL AKIAK 4.21 1.90 - 7.00 K/uL 10/20 12:43 AM [facility] Not Available Not Available 10/06/2024 03:38:52 10/21/19 24 10/21/2023 CBC W Auto Diffe renti al panel - Blood lymphocyte absolute 1.4 K/uL low: 0.7K/u Lhigh: 4.5K/u L LYMPH OCYTE ABSOL AKIAK 1.40 0.70 - 4.50 K/uL 10/20 12:[address] [facility] Not Available Not Available 10/06/2024 03:38:52 10/21/19 24 10/21/2023 CBC W Auto Diffe renti al panel - Blood monocyte absolute 0.34 K/uL low: 0.1K/u Lhigh: 1.3K/u L MONOC YTE ABSOL AKIAK 0.34 0.10 - 1.30 K/uL 10/20 12:[address] [facility] Not Available Not Available 10/06/2024 03:38:52 10/21/19 24 10/21/2023 CBC W Auto Diffe renti al panel - Blood eosinophil absolute 0.27 K/uL low: 0K/uLh igh: 0.7K/u L EOSIN OPHIL ABSOL AKIAK 0.27 0.00 - 0.70 K/uL 10/20 12:[address] [facility] Not Available Not Available 10/06/2024 03:38:52 10/21/19 24 10/21/2023 CBC W Auto Diffe renti al panel - Blood basophils absolute 0.04 K/uL low: 0K/uLh igh: 0.2K/u L BASOP HILS ABSOL AKIAK 0.04 0.00 - 0.20 K/uL 10/20 12:43 AM [facility] Not Available Not Available 10/06/2024 03:38:52 10/21/1910/21/2023 CBC W Auto Diffe renti al panel - Blood immature granulocytes absolute 0.07 K/uL low: 0K/uLh igh: 0.03K/ uL high IMMAT URE GRANU LOCYT ES ABSOL AKIAK 0.07 (H) 0.00 - 0.03 K/uL 10/20 12:43 AM [facility] Not Available Not Available 10/06/2024 03:38:52 10/21/19 24 10/21/2023 CBC W Auto Diffe renti al panel - Blood interpretati on and review of laboratory results Abnorm al Not Available Not Available 03:38:52 10/22/19 24 10/22/2023 Basic metab olic 2000 panel - Serum or Plasm a sodium [moles/volum e] in serum or plasma 142 mmol/ L low: 136mmo l/Lhig h: 145mmo l/L SODIU M 142 136 - 145 mmol/ L 10/21 6:[address] [facility] Not Available Not Available 10/06/2024 03:38:53 10/22/19 24 10/22/2023 Basic metab olic 2000 panel - Serum or Plasm a potassium [moles/volum e] in serum or plasma 3.9 mmol/ L low: 3.5mmo l/Lhig h: 5mmol/ L POTAS SIUM 3.9 3.5 - 5.0 mmol/ L 10/21 6:[address] [facility] Not Available Not Available 10/06/2024 03:38:53 10/22/19 24 10/22/2023 Basic metab olic 2000 panel - Serum or Plasm a chloride 107 mmol/ L low: 98mmol /Lhigh : 107mmo l/L CHLOR KALINA 107 98 - 107 mmol/ L 10/21 6:[address] [facility] Not Available Not Available 10/06/2024 03:38:53 10/22/19 24 10/22/2023 Basic metab olic 1999 panel - Serum or Plasm a carbon dioxide, total [moles/volum e] in serum or plasma 27 mmol/ L low: 22mmol /Lhigh : 29mmol /L CO2 27 22 - 29 mmol/ L 10/21 6:[address] [facility] Not Available Not Available 10/06/2024 03:38:53 10/22/19 24 10/22/2023 Basic metab olic 2000 panel - Serum or Plasm a calcium 8.9 mg/dL low: 8.6mg/ dLhigh : 10.2mg /dL CALCI UM 8.9 8.6 - 10.2 mg/dL 10/21 6:[address] [facility] Not Available Not Available 10/06/2024 03:38:53 10/22/19 24 10/22/2023 Basic metab olic 2000 panel - Serum or Plasm a BUN 10 mg/dL low: 6mg/dL high: 20mg/d L BUN 10 6 - 20 mg/dL 10/21 6:59 AM [facility] Not Available Not Available 10/06/2024 03:38:53 10/22/19 24 10/22/2023 Basic metab olic 1999 panel - Serum or Plasm a creatinine [mass/volume ] in serum or plasma 1.15 mg/dL low: 0.67mg /dLhig h: 1.17mg /dL CREAT ININE 1.15 0.67 - 1.17 mg/dL 10/21 6:[address] [facility] Not Available Not Available 10/06/2024 03:38:53 10/22/19 24 10/22/2023 Basic metab olic 2000 panel - Serum or Plasm a glucose [mass/volume ] in serum or plasma 88 mg/dL low: 74mg/d Lhigh: 99mg/d L GLUCO SE 88 74 - 99 mg/dL 10/21 6:59 AM [facility] Not Available Not Available 10/06/2024 03:38:53 10/22/19 24 10/22/2023 Basic metab olic 1999 panel - Serum or Plasm a glomerular filtration rate/1.73 sq M.predicted [volume rate/area] in serum, plasma or blood by creatinine-b ased formula (CKD-epi 2020) text: >=60 mL/min /1.73 sq meter GFR >60 >=60 mL/mi n/1.7 3 sq meter 10/21 6:59 AM [facility] Not Available Not Available 10/06/2024 03:38:53 10/22/19 24 10/22/2023 Basic metab olic 2000 panel - Serum or Plasm a anion gap 8 mmol/ L low: 8mmol/ Lhigh: 16mmol /L ANION GAP 8 8 - 16 mmol/ L 10/21 6:59 AM [facility] Not Available Not Available 10/06/2024 03:38:53 10/22/19 24 10/22/2023 Basic metab olic 2000 panel - Serum or Plasm a interpretati on and review of laboratory results Normal Not Available Not Available 09/13 03:38:53 10/22/19 24 10/22/2023 CBC W Auto Diffe renti al panel - Blood leukocytes [#/volume] in blood 5.1 K/uL low: 4K/uLh igh: 9.8K/u L WBC 5.1 4.0 - 9.8 K/uL 10/21 6:44 AM CDT [employer] [facility] Not Available Not Available 10/06/2024 03:38:53 10/22/19 24 10/22/2023 CBC W Auto Diffe renti al panel - Blood RBC 4.16 text: 4.50 - 5.40 M/uL low RBC 4.16 (L) 4.50 - 5.40 M/uL 10/21 6:44 AM CDT [facility] Not Available Not Available 10/06/2024 03:38:53 10/22/19 24 10/22/2023 CBC W Auto Diffe renti al panel - Blood hemoglobin 12.9 g/dL low: 13.6g/ dLhigh : 16.5g/ dL low HEMOG LOBIN 12.9 (L) 13.6 - 16.5 g/dL 10/21 6:44 AM [facility] Not Available Not Available 10/06/2024 03:38:53 10/22/19 24 10/22/2023 CBC W Auto Diffe renti al panel - Blood hematocrit [volume fraction] of blood by automated count 37.6 % low: 40%hig h: 48% low HEMAT OCRIT 37.6 (L) 40.0 - 48.0 % 10/21 6:44 AM [employer] [facility] Not Available Not Available 10/06/2024 03:38:53 10/22/19 24 10/22/2023 CBC W Auto Diffe renti al panel - Blood MCV 90.4 fL low: 82fLhi gh: 99fL MCV 90.4 82.0 - 99.0 fL 10/21 6:[address] [facility] Not Available Not Available 10/06/2024 03:38:53 10/22/19 24 10/22/2023 CBC W Auto Diffe renti al panel - Blood MCH 31 pg low: 27.2pg high: 32.6pg MCH 31.0 27.2 - 32.6 pg 10/21 6:[address] [facility] Not Available Not Available 10/06/2024 03:38:53 10/22/19 24 10/22/2023 CBC W Auto Diffe renti al panel - Blood MCHC 34.3 g/dL low: 31.5g/ dLhigh : 35.5g/ dL MCHC 34.3 31.5 - 35.5 g/dL 10/21 6:44 AM [facility] Not Available Not Available 10/06/2024 03:38:53 10/22/19 24 10/22/2023 CBC W Auto Diffe renti al panel - Blood RDW 12.9 % low: 11.5%h igh: 14.5% RDW 12.9 11.5 - 14.5 % 10/21 6:44 AM [facility] Not Available Not Available 10/06/2024 03:38:53 10/22/19 24 10/22/2023 CBC W Auto Diffe renti al panel - Blood RDW-stdev 42 fL low: 37.1fL high: 48.7fL RDW-S TDEV 42.0 37.1 - 48.7 fL 10/21 6:44 AM [facility] Not Available Not Available 10/06/2024 03:38:53 10/22/19 24 10/22/2023 CBC W Auto Diffe renti al panel - Blood platelets [#/volume] in blood by automated count 125 K/uL low: 140K/u Lhigh: 350K/u L low PLATE LETS 125 (L) 140 - 350 K/uL 10/21 6:44 AM [facility] Not Available Not Available 10/06/2024 03:38:53 10/22/19 24 10/22/2023 CBC W Auto Diffe renti al panel - Blood MPV 8.6 fL low: 9.3fLh igh: 12.4fL low MPV 8.6 (L) 9.3 - 12.4 fL 10/21 6:[address] [facility] Not Available Not Available 10/06/2024 03:38:53 10/22/19 24 10/22/2023 CBC W Auto Diffe renti al panel - Blood neutrophils 50 % NEUTR OPHIL S 50 % 10/21 6:[address] [facility] Not Available Not Available 10/06/2024 03:38:53 10/22/19 24 10/22/2023 CBC W Auto Diffe renti al panel - Blood lymphocytes/ 100 leukocytes in blood by automated count 33 % LYMPH OCYTE S 33 % 10/21 6:[address] [facility] Not Available Not Available 10/06/2024 03:38:53 10/22/19 24 10/22/2023 CBC W Auto Diffe renti al panel - Blood monocytes 8 % MONOC YTES 8 % 10/21 6:[address] [facility] Not Available Not Available 10/06/2024 03:38:53 10/22/19 24 10/22/2023 CBC W Auto Diffe renti al panel - Blood eosinophils 9 % EOSIN OPHIL S 9 % 10/21 6:[address] [facility] Not Available Not Available 10/06/2024 03:38:53 10/22/19 24 10/22/2023 CBC W Auto Diffe renti al panel - Blood basophils 1 % BASOP HILS 1 % 10/21 6:[address] [facility] Not Available Not Available 10/06/2024 03:38:53 10/22/19 24 10/22/2023 CBC W Auto Diffe renti al panel - Blood immature granulocytes 0 % IMMAT URE GRANU LOCYT ES 0 % 10/21 6:[address] [facility] Not Available Not Available 10/06/2024 03:38:53 10/22/19 24 10/22/2023 CBC W Auto Diffe renti al panel - Blood neutrophils [#/volume] in blood by automated count 2.55 K/uL low: 1.9K/u Lhigh: 7K/uL NEUTR OPHIL ABSOL AKIAK 2.55 1.90 - 7.00 K/uL 10/21 6:[address] [facility] Not Available Not Available 10/06/2024 03:38:53 10/22/19 24 10/22/2023 CBC W Auto Diffe renti al panel - Blood lymphocyte absolute 1.69 K/uL low: 0.7K/u Lhigh: 4.5K/u L LYMPH OCYTE ABSOL AKIAK 1.69 0.70 - 4.50 K/uL 10/21 6:[address] [facility] Not Available Not Available 10/06/2024 03:38:53 10/22/19 24 10/22/2023 CBC W Auto Diffe renti al panel - Blood monocyte absolute 0.39 K/uL low: 0.1K/u Lhigh: 1.3K/u L MONOC YTE ABSOL AKIAK 0.39 0.10 - 1.30 K/uL 10/21 6:[address] [facility] Not Available Not Available 10/06/2024 03:38:53 10/22/19 24 10/22/2023 CBC W Auto Diffe renti al panel - Blood eosinophil absolute 0.45 K/uL low: 0K/uLh igh: 0.7K/u L EOSIN OPHIL ABSOL AKIAK 0.45 0.00 - 0.70 K/uL 10/21 6:[address] [facility] Not Available Not Available 10/06/2024 03:38:53 10/22/19 24 10/22/2023 CBC W Auto Diffe renti al panel - Blood basophils absolute 0.04 K/uL low: 0K/uLh igh: 0.2K/u L BASOP HILS ABSOL AKIAK 0.04 0.00 - 0.20 K/uL 10/21 6:[address] [facility] Not Available Not Available 10/06/2024 03:38:53 10/22/19 24 10/22/2023 CBC W Auto Diffe ilene lofton panel - Blood immature granulocytes absolute 0.02 K/uL low: 0K/uLh igh: 0.03K/ uL IMMAT URE GRANU LOCYT ES ABSOL AKIAK 0.02 0.00 - 0.03 K/uL 10/21 6:[address] [facility] Not Available Not Available 10/06/2024 03:38:53 10/22/19 24 10/22/2023 CBC W Auto Diffe ilene lofton panel - Blood interpretati on and review of laboratory results Abnorm al Not Available Not Available 03:38:53 10/23/19 24 10/23/2023 Basic metab olic 1999 panel - Serum or Plasm a sodium [moles/volum e] in serum or plasma 141 mmol/ L low: 136mmo l/Lhig h: 145mmo l/L SODIU M 141 136 - 145 mmol/ L 10/22 6:[address] [facility] Not Available Not Available 10/06/2024 03:38:53 10/23/19 24 10/23/2023 Basic metab olic 1999 panel - Serum or Plasm a potassium [moles/volum e] in serum or plasma 3.5 mmol/ L low: 3.5mmo l/Lhig h: 5mmol/ L POTAS SIUM 3.5 3.5 - 5.0 mmol/ L 10/22 6:[address] [facility] Not Available Not Available 10/06/2024 03:38:53 10/23/19 24 10/23/2023 Basic metab olic 1999 panel - Serum or Plasm a chloride 107 mmol/ L low: 98mmol /Lhigh : 107mmo l/L CHLOR KALINA 107 98 - 107 mmol/ L 10/22 6:27 AM [facility] Not Available Not Available 10/06/2024 03:38:53 10/23/19 24 10/23/2023 Basic metab olic 2000 panel - Serum or Plasm a carbon dioxide, total [moles/volum e] in serum or plasma 24 mmol/ L low: 22mmol /Lhigh : 29mmol /L CO2 24 22 - 29 mmol/ L 10/22 6:27 AM [facility] Not Available Not Available 10/06/2024 03:38:53 10/23/19 24 10/23/2023 Basic metab olic 2000 panel - Serum or Plasm a calcium 9.4 mg/dL low: 8.6mg/ dLhigh : 10.2mg /dL CALCI UM 9.4 8.6 - 10.2 mg/dL 10/22 6:27 AM [facility] Not Available Not Available 10/06/2024 03:38:53 10/23/19 24 10/23/2023 Basic metab olic 2000 panel - Serum or Plasm a BUN 11 mg/dL low: 6mg/dL high: 20mg/d L BUN 11 6 - 20 mg/dL 10/22 6:27 AM [facility] Not Available Not Available 10/06/2024 03:38:53 10/23/19 24 10/23/2023 Basic metab olic 2000 panel - Serum or Plasm a creatinine [mass/volume ] in serum or plasma 0.94 mg/dL low: 0.67mg /dLhig h: 1.17mg /dL CREAT ININE 0.94 0.67 - 1.17 mg/dL 10/22 6:27 AM [facility] Not Available Not Available 10/06/2024 03:38:53 10/23/19 24 10/23/2023 Basic metab olic 2000 panel - Serum or Plasm a glucose [mass/volume ] in serum or plasma 76 mg/dL low: 74mg/d Lhigh: 99mg/d L GLUCO SE 76 74 - 99 mg/dL 10/22 6:27 AM [facility] Not [facility] Not Available 10/06/2024 03:38:53 10/23/19 24 10/23/2023 Basic metab olic 2000 panel - Serum or Plasm a glomerular filtration rate/1.73 sq M.predicted [volume rate/area] in serum, plasma or blood by creatinine-b ased formula (CKD-epi 2020) text: >=60 mL/min /1.73 sq meter GFR >60 >=60 mL/mi n/1.7 3 sq meter 10/22 6:27 AM [facility] Not Available Not Available 10/06/2024 03:38:53 10/23/19 24 10/23/2023 Basic metab olic 2000 panel - Serum or Plasm a anion gap 10 mmol/ L low: 8mmol/ Lhigh: 16mmol /L ANION GAP 10 8 - 16 mmol/ L 10/22 6:27 AM [facility] Not Available Not Available 10/06/2024 03:38:53 10/23/19 24 10/23/2023 Basic metab olic 2000 panel - Serum or Plasm a interpretati on and review of laboratory results Normal Not Available Not Available 09/13 03:38:53 10/23/19 24 10/23/2023 CBC W Auto Diffe renti al panel - Blood leukocytes [#/volume] in blood 5.7 K/uL low: 4K/uLh igh: 9.8K/u L WBC 5.7 4.0 - 9.8 K/uL 10/22 5:47 AM [facility] Not Available Not Available 10/06/2024 03:38:53 10/23/19 24 10/23/2023 CBC W Auto Diffe renti al panel - Blood RBC 4.13 text: 4.50 - 5.40 M/uL low RBC 4.13 (L) 4.50 - 5.40 M/uL 10/22 5:[address] [facility] Not Available Not Available 10/06/2024 03:38:53 10/23/19 24 10/23/2023 CBC W Auto Diffe renti al panel - Blood hemoglobin 12.8 g/dL low: 13.6g/ dLhigh : 16.5g/ dL low HEMOG LOBIN 12.8 (L) 13.6 - 16.5 g/dL 10/22 5:[address] [facility] Not Available Not Available 10/06/2024 03:38:53 10/23/19 24 10/23/2023 CBC W Auto Diffe renti al panel - Blood hematocrit [volume fraction] of blood by automated count 36.9 % low: 40%hig h: 48% low HEMAT OCRIT 36.9 (L) 40.0 - 48.0 % 10/22 5:[address] [facility] Not Available Not Available 10/06/2024 03:38:53 10/23/19 24 10/23/2023 CBC W Auto Diffe renti al panel - Blood MCV 89.3 fL low: 82fLhi gh: 99fL MCV 89.3 82.0 - 99.0 fL 10/22 5:[address] [facility] Not Available Not Available 10/06/2024 03:38:53 10/23/19 24 10/23/2023 CBC W Auto Diffe renti al panel - Blood MCH 31 pg low: 27.2pg high: 32.6pg MCH 31.0 27.2 - 32.6 pg 10/22 5:[address] [facility] Not Available Not Available 10/06/2024 03:38:53 10/23/19 24 10/23/2023 CBC W Auto Diffe renti al panel - Blood MCHC 34.7 g/dL low: 31.5g/ dLhigh : 35.5g/ dL MCHC 34.7 31.5 - 35.5 g/dL 10/22 5:47 AM [facility] Not Available Not Available 10/06/2024 03:38:53 10/23/19 24 10/23/2023 CBC W Auto Diffe renti al panel - Blood RDW 12.9 % low: 11.5%h igh: 14.5% RDW 12.9 11.5 - 14.5 % 10/22 5:[address] [facility] Not Available Not Available 10/06/2024 03:38:53 10/23/19 24 10/23/2023 CBC W Auto Diffe renti al panel - Blood RDW-stdev 41.6 fL low: 37.1fL high: 48.7fL RDW-S TDEV 41.6 37.1 - 48.7 fL 10/22 5:[address] [facility] Not Available Not Available 10/06/2024 03:38:53 10/23/19 24 10/23/2023 CBC W Auto Diffe renti al panel - Blood platelets [#/volume] in blood by automated count 113 K/uL low: 140K/u Lhigh: 350K/u L low PLATE LETS 113 (L) 140 - 350 K/uL 10/22 5:[address] [facility] Not Available Not Available 10/06/2024 03:38:53 10/23/19 24 10/23/2023 CBC W Auto Diffe renti al panel - Blood MPV 8.8 fL low: 9.3fLh igh: 12.4fL low MPV 8.8 (L) 9.3 - 12.4 fL 10/22 5:[address] [facility] Not Available Not Available 10/06/2024 03:38:53 10/23/19 24 10/23/2023 CBC W Auto Diffe renti al panel - Blood neutrophils 51 % NEUTR OPHIL S 51 % 10/22 5:[address] [facility] Not Available Not Available 10/06/2024 03:38:53 10/23/19 24 10/23/2023 CBC W Auto Diffe renti al panel - Blood lymphocytes/ 100 leukocytes in blood by automated count 35 % LYMPH OCYTE S 35 % 10/22 5:[address] [facility] Not Available Not Available 10/06/2024 03:38:53 10/23/19 24 10/23/2023 CBC W Auto Diffe renti al panel - Blood monocytes 7 % MONOC YTES 7 % 10/22 5:[address] [facility] Not Available Not Available 10/06/2024 03:38:53 10/23/19 24 10/23/2023 CBC W Auto Diffe renti al panel - Blood eosinophils 6 % EOSIN OPHIL S 6 % 10/22 5:[address] [facility] Not Available Not Available 10/06/2024 03:38:53 10/23/19 24 10/23/2023 CBC W Auto Diffe renti al panel - Blood basophils 1 % BASOP HILS 1 % 10/22 5:[address] [facility] Not Available Not Available 10/06/2024 03:38:53 10/23/19 24 10/23/2023 CBC W Auto Diffe renti al panel - Blood immature granulocytes 1 % IMMAT URE GRANU LOCYT ES 1 % 10/22 5:[address] [facility] Not Available Not Available 10/06/2024 03:38:53 10/23/19 24 10/23/2023 CBC W Auto Diffe renti al panel - Blood neutrophils [#/volume] in blood by automated count 2.91 K/uL low: 1.9K/u Lhigh: 7K/uL NEUTR OPHIL ABSOL AKIAK 2.91 1.90 - 7.00 K/uL 10/22 5:[address] [facility] Not Available Not Available 10/06/2024 03:38:53 10/23/19 24 10/23/2023 CBC W Auto Diffe renti al panel - Blood lymphocyte absolute 1.97 K/uL low: 0.7K/u Lhigh: 4.5K/u L LYMPH OCYTE ABSOL AKIAK 1.97 0.70 - 4.50 K/uL 10/22 5:[address] [facility] Not Available Not Available 10/06/2024 03:38:53 10/23/19 24 10/23/2023 CBC W Auto Diffe renti al panel - Blood monocyte absolute 0.39 K/uL low: 0.1K/u Lhigh: 1.3K/u L MONOC YTE ABSOL AKIAK 0.39 0.10 - 1.30 K/uL 10/22 5:[address] [facility] Not Available Not Available 10/06/2024 03:38:53 10/23/19 24 10/23/2023 CBC W Auto Diffe renti al panel - Blood eosinophil absolute 0.35 K/uL low: 0K/uLh igh: 0.7K/u L EOSIN OPHIL ABSOL AKIAK 0.35 0.00 - 0.70 K/uL 10/22 5:[address] [facility] Not Available Not Available 10/06/2024 03:38:53 10/23/19 24 10/23/2023 CBC W Auto Diffe renti al panel - Blood basophils absolute 0.04 K/uL low: 0K/uLh igh: 0.2K/u L BASOP HILS ABSOL AKIAK 0.04 0.00 - 0.20 K/uL 10/22 5:[address] [facility] Not Available Not Available 10/06/2024 03:38:53 10/23/19 24 10/23/2023 CBC W Auto Diffe renti al panel - Blood immature granulocytes absolute 0.04 K/uL low: 0K/uLh igh: 0.03K/ uL high IMMAT URE GRANU LOCYT ES ABSOL AKIAK 0.04 (H) 0.00 - 0.03 K/uL 10/22 5:47 AM [facility] Not Available Not Available 10/06/2024 03:38:53 10/23/19 24 10/23/2023 CBC W Auto Diffe renti al panel - Blood interpretati on and review of laboratory results Abnorm al Not Available Not Available 03:38:53 02/27/20 17 02/26/2017 XR, foot, 3 or more view No observ ation record ed. [email or web address] [facility] (Imaging) [address] [place], [address], 03/01/2017 15:19:12 03/22/20 17 03/22/2017 US, thyro id No observ ation record ed. [address] ([employer]) [address] [place], [address], 03/23/2017 05:17:47 03/22/20 17 03/22/2017 MRI, foot, w/o contr ast No observ ation record ed. [address] (Imaging) [address] [place], [address], 03/23/2017 05:13:34 09/16/19 24 09/16/2023 right heart barron teriz ation inclu ding measu remen t(s) of oxyge n satur ation and cardi ac outpu t (PROC ) No observ ation record ed. [address] [facility] [address], [place], [address], 09/16/2023 18:23:48 10/01/19 24 10/01/2023 XR, chest No observ ation record ed. [address] [place], [address], 10/11/2023 09:54:15 10/01/19 24 10/01/2023 CT, angio gram, chest , w/ contr ast No observ ation record ed. [address] [place], [address], 10/11/2023 09:54:44 10/01/19 24 10/01/2023 CT, head, w/o contr ast No observ ation record ed. [address] [place], [address], 10/11/2023 09:54:54 10/02/19 24 10/02/2023 XR, chest , 2 view No observ ation record ed. [address] [place], [address], 10/11/2023 09:55:07 10/02/19 24 10/02/2023 MRI, brain , w/wo contr ast No observ ation record ed. [address] [place], [address], 10/11/2023 09:55:33 10/02/19 24 10/02/2023 MR, angio gram, head, w/o contr ast No observ ation record ed. [address] [place], [address], 10/11/2023 09:56:06 10/04/19 24 10/04/2023 CT, head, w/o contr ast No observ ation record ed. [address] [place], [address], 10/11/2023 09:57:21 11/02/19 24 11/02/2023 XR, shoul galo No observ ation record ed. [address], [address], 11/06/2023 09:47:40 11/02/19 24 11/02/2023 XR, chest , 2 view No observ ation record ed. [address] [address], [place], [address], 11/06/2023 09:47:52 05/13/20 24 05/13/2024 XR, chest , 2 view No observ ation record ed. [address], [place], [address], 05/15/2024 10:00:18 05/14/20 24 05/13/2024 CT, angio gram, chest , w/ contr ast No observ ation record ed. [address], [place], [address], 05/15/2024 10:00:43 08/19/19 25 08/19/2024 XR, chest , 2 view No observ ation record ed. [address], [place], [address], 09/01/2024 12:57:18 08/19/19 25 08/19/2024 CT, angio gram, chest + abdom en + pelvi s, w/ contr ast No observ ation record ed. [address] [address], [place], [address], 09/01/2024 12:57:44 Result Notes None recorded. Problems Name Problem SNOMED Code Status Onset Date Resolution Date Notes Provider Name and Address Organization Details Recorded Time Type 2 diabetes mellitus 66278037 Active 2022 Duglas Campbell MD Attn: Bo garland,[address] [place], [address], [facility] 3 14:44:29 Hyperlip idemia 29361749 Active 2022 Duglas Campbell MD Attn: Bo garland,[address] [place], [address], [facility] 3 14:50:32 Screenin g for malignan t neoplasm of prostate Active 2022 Duglas Campbell MD Attn: Bo garland,[address] [place], [address], [facility] 3 14:53:53 [facility] hyperten daniel 82392179 Active Duglas Campbell MD Attn: Bo garland,[address] [facility], [place], [address], [place] [facility] 6 17:30:17 Recurren t genital herpes simplex 926682374 Active Duglas Campbell MD Attn: Bo garland,[address] [facility], [place], [address], [place] [facility] 6 17:51:46 Influenz a-like illness 17427019 Completed 05/28/2023 Duglas Campbell MD Attn: Gilbertogordon garland,[address] [facility], [place], [address], [place] [facility] 3 14:49:11 Thyroid stimulat ing hormone level above referenc e range 894137528 Active Duglas Campbell MD Attn: Bo dada,[address] [facility], [place], [address], [place] [facility] 6 17:30:17 Hypertri glycerid emia 039529963 Completed 05/28/2023 Duglas Campbell MD Attn: Gilbertogordon garland,[address] [facility], [place], [address], [place] [facility] 3 14:48:42 Jaw pain 367816219 Completed 05/28/2023 Duglas Campbell MD Attn: Gilbertogordon garland,[address] [facility], [place], [address], [place] [facility] 3 14:49:30 Pain in right foot [id number] 9107 Completed 201603/27/2018 Removal Reason: resolved Duglas Campbell MD Attn: Bo dada,[address] [facility], [place], [address], [place] [facility] 8 13:06:14 Problem Notes None recorded. Procedures Surgical History None recorded. Imaging Results Imaging Date Name Status LastModified by Organization Details LastModified Time 02/26/2017 XR, foot, 3 or more view completed [email or web address] [place] [address] (Imaging) [address] [place], [address], 03/01/2017 15:19:12 03/22/2017 US, thyroid completed [address] ([employer]) [address] [place], [address], 03/23/2017 05:17:47 03/22/2017 MRI, foot, w/o contrast completed [address] (Imaging) [address] [place], [address], 03/23/2017 05:13:34 09/16/2023 right heart catheterization including measurement(s) of oxygen saturation and cardiac output (PROC) completed [address] [facility] [address], [place], [address], 09/16/2023 18:23:48 10/01/2023 XR, chest completed [address] [place], [address], 10/11/2023 09:54:15 10/01/2023 CT, angiogram, chest, w/ contrast completed [address] [place], [address], 10/11/2023 09:54:44 10/01/2023 CT, head, w/o contrast completed [address] [place], [address], 10/11/2023 09:54:54 10/02/2023 XR, chest, 2 view completed [address] [place], [address], 10/11/2023 09:55:07 10/02/2023 MRI, brain, w/wo contrast completed [address] [place], [address], 10/11/2023 09:55:33 10/02/2023 MR, angiogram, head, w/o contrast completed [address] [place], [address], 10/11/2023 09:56:06 10/04/2023 CT, head, w/o contrast completed [address] [place], [address], 10/11/2023 09:57:21 11/02/2023 XR, shoulder completed [address], [address], 11/06/2023 09:47:40 11/02/2023 XR, chest, 2 view completed [address], [address], 11/06/2023 09:47:52 05/13/2024 XR, chest, 2 view completed [address], [address], 05/15/2024 10:00:18 05/13/2024 CT, angiogram, chest, w/ contrast completed [address], [address], 05/15/2024 10:00:43 08/19/2024 XR, chest, 2 view completed [address], [address], 09/01/2024 12:57:18 08/19/2024 CT, angiogram, chest + abdomen + pelvis, w/ contrast completed [address], [address], 09/01/2024 12:57:44 Procedure Notes None recorded. Medical Equipment None Reported. Allergies Allergen ID Allergen Name Allergen Category Reaction Reaction Severity Criticality Documentation Date Start Date Code Code System Note Provider Name and Address Organization Details Recorded Time 68291 Product containin g penicilli n (product) medicatio n Not available Not available Not available 10/13/2015 58780 8001 SNOMED Héctor elizondo MA null, [place] - [facility] 6 16:57:56 Medications Name Sig Start Date Stop Date Status Note LastModified by Organization Details LastModified Time losartan 50 mg tablet TAKE 1 TABLET BY MOUTH EVERY DAY active Not Available Not Available No t Available metformin 500 mg tablet TAKE 1 AND 1/2 TABLETS BY MOUTH TWICE DAILY active Not Available Not Available No t Available bupropion HCl SR 150 mg tablet,12 hr sustained-r elease TAKE 1 TABLET BY MOUTH DAILY X 3 DAYS active Not Available Not Available No t Available atorvastati n 80 mg tablet TAKE 1 TABLET BY MOUTH EVERY DAY active Not Available Not Available No t Available doxycycline hyclate 100 mg capsule TAKE 1 CAPSULE BY MOUTH TWICE DAILY 05/28 completed Not Available Not Available Not Available atorvastati n 20 mg tablet TAKE 1 TABLET BY MOUTH EVERY DAY active Not Available Not Available No t Available clindamycin HCl 300 mg capsule 05/28 completed Not Available Not Available Not Available ibuprofen 800 mg tablet 03/27 completed Not Available Not Available Not Available metoprolol succinate ER 50 mg tablet,exte nded release 24 hr TAKE 1 TABLET BY MOUTH TWICE DAILY 05/28 completed Not Available Not Available Not Available valacyclovi r 1 gram tablet Take 1 tablet by MOUTH every DAY FOR 5 DAYS active Not Available Not Available No t Available hydrocodone 5 mg-acetamin ophen 325 mg tablet Take 1 tablet every 8 hours by oral route for 7 days. 03/27 completed Not Available Not Available Not Available meloxicam 15 mg tablet 03/27 completed Not Available Not Available Not Available dextroamphe tamine-amph etamine 10 mg tablet 05/28 completed Not Available Not Available Not Available sertraline 100 mg tablet 05/28 completed Not Available Not Available Not Available clonazepam 1 mg tablet TAKE 1 TABLET BY MOUTH FOUR TIMES DAILY NEEDED FOR ANXIETY active Not Available Not Available No t Available midodrine 5 mg tablet active Not Available Not Available No t Available acyclovir 400 mg tablet TAKE 1 TABLET BY MOUTH TWICE DAILY 05/28 completed Not Available Not Available Not Available valacyclovi r 500 mg tablet TAKE 1 TABLET BY MOUTH EVERY DAY 05/28 completed Not Available Not Available Not Available tramadol 50 mg tablet TAKE 1 TABLET BY MOUTH EVERY 8 HOURS NEEDED active Not Available Not Available No t Available dextroamphe tamine-amph etamine ER 20 mg 24hr capsule,ext end release 05/28 completed Not Available Not Available Not Available OneTouch Ultra Test strips TEST BLOOD SUGAR THREE TIMES DAILY active Not Available Not Available No t Available gemfibrozil 600 mg tablet TAKE ONE TABLET BY MOUTH TWICE DAILY 03/27 completed Not Available Not Available Not Available naproxen sodium 550 mg tablet 03/27 completed Not Available Not Available Not Available losartan 25 mg tablet TAKE 1 TABLET BY MOUTH DAILY active Not Available Not Available No t Available metoprolol tartrate 50 mg tablet TAKE 1 TABLET BY MOUTH TWICE DAILY active Not Available Not Available No t Available dextroamphe tamine-amph etamine 15 mg tablet 05/28 completed Not Available Not Available Not Available gabapentin 300 mg capsule active Not Available Not Available Not Available aspirin 81 mg chewable tablet CHEW AND SWALLOW ONE TABLET BY MOUTH ONCE A DAY active Not Available Not Available No t Available gabapentin 100 mg capsule active Not Available Not Available Not Available metoprolol succinate ER 25 mg tablet,exte nded release 24 hr active Not Available Not Available Not Available dextroamphe tamine-amph etamine ER 30 mg 24hr capsule,ext end release 05/28 completed Not Available Not Available Not Available ondansetron 4 mg disintegrat ing tablet active Not Available Not Available N ot Available dicyclomine 10 mg capsule TAKE 1 CAPSULE BY MOUTH TWICE DAILY NEEDED FOR ABDOMINAL PAIN active Not Available Not Available No t Available naproxen 500 mg tablet 03/27 completed Not Available Not Available Not Available oxycodone 5 mg tablet active Not Available Not Available No t Available Amphetamine Salt Combo 10 mg tablet 05/28 completed Not Available Not Available Not Available bupropion HCl XL 150 mg 24 hr tablet, extended release TAKE 1 TABLET BY MOUTH DAILY active Not Available Not Available No t Available metoprolol tartrate 25 mg tablet active Not Available Not Available No t Available duloxetine 30 mg capsule,del ayed release 05/28 completed Not Available Not Available Not Available duloxetine 60 mg capsule,del ayed release TAKE 1 CAPSULE BY MOUTH TWICE DAILY active Not Available Not Available No t Available fenofibrate 54 mg tablet TAKE 1 TABLET BY MOUTH EVERY DAY WITH MEALS 05/28 completed Not Available Not Available Not Available guanfacine ER 3 mg tablet,exte nded release 24 hr TAKE 1 TABLET BY MOUTH EVERY DAY active Not Available Not Available No t Available Brilinta 90 mg tablet TAKE 1 TABLET BY MOUTH TWICE DAILY active Not Available Not Available No t Available Farxiga 10 mg tablet TAKE 1 TABLET BY MOUTH EVERY DAY active Not Available Not Available No t Available naloxone 4 mg/actuatio n nasal spray CALL 911. SPR CONTENTS OF ONE SPRAYER (0.1ML) INTO ONE NOSTRIL. REPEAT IN 2-3 MIN IF SYMPTOMS OF OPIOID EMERGENCY PERSIST, ALTERNATE NOSTRILS active Not Available Not Available No t Available OneTouch Ultra2 Meter USE TO TEST BLOOD SUGAR 3 TIMES DAILY. active Not Available Not Available No t Available OneTouch Delica Plus Lancet 33 gauge TEST THREE TIMES DAILY PER TEST STRIP INSTRUCTI ONS active Not Available Not Available No t Available Vitals Date Recorded Body weight Body mass index (BMI) Body height Body temperature Oxygen saturation Oxygen saturation in Arterial blood by Pulse oximetry Heart rate Systolic blood pressure Diastolic blood pressure Provider Name and Address Organization Details Last Updated DateTime 8 193726. 65 g 34.7 kg/m2 182.88 cm 98.1 [degF] 96 % 96 % 73 /min 130 mm[Hg] 96 mm[Hg] Jenniffer Krugeer MA [facility] 8 12:36:57 Date Recorded Body height Body mass index (BMI) Body weight Body temperature Oxygen saturation Oxygen saturation in Arterial blood by Pulse oximetry Heart rate Systolic blood pressure Diastolic blood pressure Provider Name and Address Organization Details Last Updated DateTime 3 182.88 cm 35.1 kg/m2 574003. 42 g 98.1 [degF] 97 % 97 % 72 /min 112 mm[Hg] 72 mm[Hg] Jenniffer Krueger MA [facility] 3 14:14:18 Date Recorded Body weight Body height Body temperature Body mass index (BMI) Systolic blood pressure Diastolic blood pressure Provider Name and Address Organization Details Last Updated DateTime 6 955686. 43042 g 182.88 cm 98.3 [degF] 37.6 kg/m2 128 mm[Hg] 78 mm[Hg] Jenniffer Argueta MA [facility] 6 16:37:32 Date Recorded Body height Body weight Body mass index (BMI) Body temperature Heart rate Oxygen saturation Oxygen saturation in Arterial blood by Pulse oximetry Systolic blood pressure Diastolic blood pressure Provider Name and Address Organization Details Last Updated DateTime 7 182.88 cm 142924. 71 g 35.1 kg/m2 98 [degF] 70 /min 97 % 97 % 128 mm[Hg] 84 mm[Hg] Jenniffer Krueger MA [facility] 7 12:54:09 Date Recorded Body height Body mass index (BMI) Body weight Heart rate Body temperature Oxygen saturation Oxygen saturation in Arterial blood by Pulse oximetry Systolic blood pressure Diastolic blood pressure Provider Name and Address Organization Details Last Updated DateTime 7 182.88 cm 33.2 kg/m2 562497. 41 g 76 /min 98.3 [degF] 99 % 99 % 130 mm[Hg] 76 mm[Hg] Jenniffer Krueger MA [facility] 7 10:44:17 Social History Question Answer Notes LastModified by [employer] ion Details LastModified Time Tobacco Smoking Status Former Smoker Jenniffer Krueger [facility] 05/28/2023 14:14:29 Do You Have An Advance Directive? No [id number] Information not available 06/14/2020 Are You Blind Or Do You Have Difficulty Seeing? No [id number] Information not available 06/14/2020 What Is Your Level Of Caffeine Consumption? Heavy [id number] Information not available 06/14/2020 How Much Tobacco Do You Chew? None [id number] Information not available 06/14/2020 Are You Deaf Or Do You Have Serious Difficulty Hearing? No [id number] Information not available 06/14/2020 What Type Of Diet Are You Following? REGULAR [id number] Information not available 06/14/2020 Which Illicit Or Recreational Drugs Have You Used? None [id number] Information not available 06/14/2020 Education 2 Year College Information not available 01/02/2016 Are There Any Guns Present In Your Home? No [id number] Information not available 06/14/2020 Hard Of Hearing Or Deaf In One Or Both Ears? No Information not available 01/02/2016 Legally Blind In One Or Both Eyes? No Information no t available 01/02/2016 Live Alone Or With Others? With Others Information not available 01/02/2016 What Was The Date Of Your Most Recent Tobacco Screening? 05/28/2023 Information not available 05/28/2023 How Many Children Do You Have? 1 [id number] Information not available 06/14/2020 Seat Belts Used Routinely Yes Information not available 01/02/2016 Are You Sexually Active? Yes [id number] Information not available 06/14/2020 Smoke Alarm In Home Yes Information not available 01/02/2016 Are You Passively Exposed To Smoke? No Information no t available 01/02/2016 How Much Tobacco Do You Smoke? 0.25 PPD [id number] Information not available 06/14/2020 Do You Use Sunscreen Routinely? Yes [id number] Information not available 06/14/2020 Has Tobacco Cessation Counseling Been Provided? Yes Information not available 05/28/2023 On What Date Was Tobacco Cessation Counseling Provided? 05/28/2023 Information not available 05/28/2023 How Many Years Have You Smoked Tobacco? 5 [id number] Information not available 06/14/2020 Do You Have Difficulty Walking Or Climbing Stairs? No [id number] Information not available 06/14/2020 Sex: Unknown Functional Status Question Answer Note LastModified by Organizat ion Details LastModified Time Do you or have you ever used any other forms of tobacco or nicotine? No Information not available 05/28/2023 What is your level of alcohol consumption? Moderate [id number] Information not available 06/14/2020 Are you currently employed? Yes [id number] Information not available 06/14/2020 Do you have difficulty doing errands alone? No [id number] Information not available 06/14/2020 Are you able to care for yourself? 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 No [id number] Information not available 06/14/2020 What is your exercise level? Moderate [id number] Information not available 06/14/2020 Mental Status Question Answer Note LastModified by Organization D etails LastModified Time Do you have difficulty concentrating, remembering or making decisions? No [id number] Information no t available 06/14/2020 Family History Relationship Description Onset Age of this Age Resolved Age Notes LastModified by Organization Details LastModified Time Mother Hypertensive disorder Not available 2015 14:11:28 Mother Heart disease Not available 2015 14:11:28 Father Heart disease Not available 2015 14:11:28 Father Hypertensive disorder Not available 2015 14:11:28 Medical History Condition Response High Blood Pressure Y Depression Y Anxiety Disorder Y Immunizations Vaccine Type Date Status Note Provider Nam e and Address Organization Details Recorded Time COVID-19, mRNA, LNP-S, PF, 30 mcg/0.3 mL dose 12/06/2020 completed MARY ELLEN [place], [place] - [facility] 12/02/2024 13:18:58 COVID-19, mRNA, LNP-S, PF, 30 mcg/0.3 mL dose 01/05/2021 completed MARY ELLEN [place] - [facility] 12/02/2024 13:18:58 Past Encounters Encounter ID Performer Location Encounter Start Date Encounter Closed Date Diagnosis/Indication Diagnosis SNOMED-CT Code Diagnosis ICD10 Code Diagnosis Note [id number] MD Nakita Corona (Adult Med) [address] [place] [address] [id number] 0 10/13/2015 16:47:33 10/14/2015 17:19:07 Essential hypertension 08118352 I10 Recurrent genital herpes simplex 154862096 A60.00 [id number] MD Nakita Corona (Adult Med) [address] [place] [address] [id number] 0 12/13/2015 14:01:07 12/13/2015 15:39:59 Influenza-like illness 58819825 B34.9 Symptomati c management Recurrent herpes simplex of penis 821084505 A60.01 Essential hypertension 51847624 I10 Labs to be done today. [id number] MD Nakita Corona (Adult Med) [address] [place] [address] [id number] 0 01/02/2016 13:58:01 01/02/2016 14:49:09 Thyroid stimulating hormone level above reference range 415278963 R79.89 Hypertriglyceridemia 302 349401 E78.1 [id number] MD Nakita Corona (Adult Med) [address] [place] [address] [id number] 02/15/2016 16:25:08 02/15/2016 17:30:57 Essential hypertension 83530858 I10 Labs to be done today. Thyroid st imulating hormone level above reference range 481433472 R79.89 Hypertriglyceridemia 302 895011 E78.1 Jaw pain 851101173 R68.8 4 Post dental work [id number] MD Nakita Corona (Adult Med) [address] [place] [address] [id number] 0 09/12/2016 12:32:04 09/12/2016 14:57:32 Hypertriglyceridemia 845709353 E78.1 Essential hypertension 27593305 I[address] imulating hormone level above reference range 890687046 R79.89 [id number] MD Nakita Corona (Adult Med) [address] [place] [address] [id number] 0 03/05/2017 10:03:02 03/05/2017 18:26:36 Hypertriglyceridemia 111447150 E78.[address] imulating hormone level above reference range 940649880 R79.89 Thyroid antibodies nl. FT4 just outside low normal Essential hypertension 61037116 I10 Pain in right foot 93926 04937 82543 M79.830 [id number] MD Nakita Corona (Adult Med) [address] [place] [address] [id number] 0 03/27/2018 11:57:51 03/27/2018 13:25:22 Essential hypertension 34209536 I10 restart BP meds immediatel y Hypertriglyceridemia [address] imulating hormone level above reference range 075341889 R79.89 [id number] MD Nakita Corona (Adult Med) [address] [place] [address] [id number] 0 05/28/2023 13:56:21 05/28/2023 15:02:53 Type 2 diabetes mellitus 56887732 E11.9 Recurrent genital herpes simplex 602069775 A60.[address] imulating hormone level above reference range 304600768 R79.89 Hyperlipidemia 78674123 E78.5 Essential hypertension 63899368 I10 Cont BP med Screening for malignant neoplasm of prostate 161512164 Z12.5 Health Concerns Section Related Observation LastModified by Organization Detai ls LastModified Time None Recorded Concern Status LastModified by Organization Details LastModified Time None Recorded Advance Directives Directive N: Payers Encounter Date Sequence Insurance Name Policy Number Policy Luo Covered Member ID Luo Member ID Guarantor Name 02/15/2016 1 [facility] PRIOR TO 02/09/2021 (MEDICAID REPLACEMENT - HMO) Leighton Sullivan [id number] Leighton Sullivan 09/12/2016 1 [facility] [id number] Leighton Sullivan [id number] Leighton Sullivan 03/05/2017 1 [facility] [id number] Leighton Sullivan [id number] Leighton Sullivan 03/27/2018 1 [facility] [id number] Leighton Sullivan [id number] Leighton Sullivan 05/28/2023 1 [facility] (MEDICAID REPLACEMENT - HMO) [id number] Leighton Sullivan [id number] Leighton Sullivan Notes Date Note Type Note Provider Name and Address Organization Details Recorded Time 02/15/2016 text/html Had dental work in past week. Still has some pain. Relieved by hydrocodone and ibuprofen. Duglas Campbell MD Attn: [address] [place], [address], [facility] 02/15/2016 17:30:28 09/12/2016 text/html No new complaint s. Stopped gemfibrozil because of diarrhea and abdominal discomfort Duglas Campbell MD Attn: [address] [place], [address], [facility] 09/12/2016 13:33:55 03/05/2017 text/html Devel;oped pain in ball of right foot which worsened over a two month period. Seen in Urgent care. Xrays unremarkable. No relief from naproxen. Duglas Campbell MD Attn: [address]ing[address], [place], [address], [facility] 03/05/2017 11:21:00 03/27/2018 text/html Needs med refils . pain in foot has resolved. Out of BP meds for about 5-6 days Duglas Campbell MD Attn: [address]ing[address] [facility], [place], [address], [facility] 03/27/2018 13:18:32 05/28/2023 text/html Recently diagnos ed with DM. Started on Farxiga and metformin. Blood glucose levels average 200 mg/dl. Urinary frequency has decreased Duglas Campbell MD Attn: [address]ing[address] [facility], [place], [address], [facility] 05/28/2023 15:02:16
--- OUTSIDE RECORDS SUMMARY | 2025-01-01 11:27 | XMS_ITS | Clinical Summary ---
Author Organization [facility] Address [address] [place] [address] Care Team Providers Care Roaster Helper Name Role Phone Duglas Campbell MD Primary [...] for nausea or vomiting 20 tablet Active Surgical History Surgery Date Site/Laterality Comments CARDIAC STENT PLACEMENT Medical History Medical History Date Comments Hypertension Diabetes mellitus (HCC) Depression Anxiety Social History Tobacco Use Types Packs/Day Years [...] on file Sexual Orientation Not on file Obstetrics History Last Filed Vital Signs Vital Sign Reading [...] 11/03/2023 3:51 PM CDT Plan of Treatment Health Maintenance Due Date Last Done Comments Colon Cancer Screening-Colonoscopy 1978 Depression Screening 1978 Hepatitis C Screening 1978 DTaP/Tdap/Td Vaccine (1 - Tdap) 1989 Hepatitis B Screening 1996 Regular Well Visit/Exam 18-64 1996 Influenza Vaccine (Season Ended) 2025 HPV Vaccines Aged Out No longer eligi ble based on patient's age to complete this topic Pneumococcal vaccine <65 Aged Out No longer eligible based on patient's age to complete this topic Insurance Care Teams Roaster Helper Relationship Specialty [place] [address] [place] [address] PCP - General Gastroenterology 10/20/23
--- OUTSIDE RECORDS SUMMARY | 2025-01-01 11:27 | XMS_ITS | Clinical Summary ---
Author Organization [facility] Address [address] [place] [address] Phone Care Team Providers Care Accounts Payable Coordinator Name Role Phone Unavailable Primary Care Provider Unavailabl e Allergies Active Allergy Reactions Criticality Noted Date Comments Penicillins Anaphylaxis High 10/15/2023 From when he was around [age] years of age. Medications ticagrelor (Brilinta) 90 mg Tablet Take 90 mg by mouth 2 times daily. Active aspirin (ECOTRIN EC) 81 mg Tablet, Delayed Release (E.C.) Take 81 mg by mouth daily. Active metFORMIN (GLUCOPHAGE) 500 mg tablet Take 750 mg by mouth 2 times daily with meals. Active clonazePAM (KlonoPIN) 1 mg tablet Take 1 mg by mouth 4 times daily as needed for Anxiety. Active DULoxetine (CYMBALTA) 60 mg Capsule, Delayed Release(E.C.) Take 60 mg by mouth 2 times daily. Active losartan (COZAAR) 50 mg tablet Take 50 mg by mouth daily. Active atorvastatin (LIPITOR) 80 mg tablet Take 80 mg by mouth daily. Active naloxone (NARCAN) 4 mg/spray [place], Non-Aerosol EMERGENCY USE ONLY: Administer 1 spray (4 mg) in one nostril one time. May repeat in alternating nostrils every 2-3 min until responsive or EMS arrives. 2 Each 3 4 Active metoprolol succinate (TOPROL XL) 25 mg Extended Release 24 hour tablet Take 1 Tablet (25 mg) by mouth daily at bedtime. 30 Tablet 4 Active gabapentin (NEURONTIN) 300 mg capsule Take 1 Capsule (300 mg) by mouth every 8 hours. 30 Capsule 4 Active oxyCODONE (ROXICODONE) 5 mg tabletIndicatio ns:Acute pain of right shoulder Take 1 Tablet (5 mg) by mouth every 6 hours as needed for Pain, Break-Through. Max Daily Amount: 20 mg 15 Tablet 4 Active Active Problems Problem Noted Date Diagnosed Date Dizziness 10/21/2023 Near syncope 10/21/2023 Chest discomfort 10/21/2023 Memory loss 10/20/2023 Disorientation 10/19/2023 Nondependent cannabis abuse 10/19/2023 Hx of coronary artery disease 10/19/2023 HTN (hypertension), benign 10/15/2023 Anxiety disorder 10/15/2023 ADHD 10/15/2023 CAD (coronary atherosclerotic disease) HLD (hyperlipidemia) 10/15/2023 Chest pain 10/15/2023 Type 2 diabetes mellitus wit h hyperglycemia, without long-term current use of insulin 10/15/2023 Hypokalemia 10/15/2023 Prediabetes 10/15/2023 Increased anion gap metabolic acidosis Encounters Date Type Department Care Team Description 10/13/2024 External Device Data STL ABSTRACTION Provider, Abstract 10/06/2024 External Device Data ST[facility] ABSTRACTION Provider, Abstract 10/06/2024 External Device Data ST[facility] ABSTRACTION Provider, Abstract 10/06/2024 External Device Data STL ABSTRACTION Provider, Abstract from Last 3 Months Family History Medical History Relation Name Comments Heart Disease Father Heart Disease Maternal Grandfather Heart Disease Maternal Grandmother Heart Disease Mother Heart Disease Paternal Grandfather Heart Disease Paternal Grandmother Relation Name Status Comments Father Maternal Grandfather Maternal Grandmother Mother Alive Paternal Grandfather Paternal Grandmother Social History Tobacco Use Types Packs/Day Years Used Date Smoking Tobacco: Never Smokeless Tobacco: Never Alcohol Use Standard Drinks/Week Comments Not Currently 0 (1 standard drink = 0.6 oz pure alcohol) has not since stent placement Feeling Safe Answer Date Recorded Are you in a relationship wi th someone who hurts you emotionally and/or physically? 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 Gender Identity Not on file Sexual Orientation Not on file Last Filed Vital Signs Vital Sign Reading Time Taken Comments Blood Pressure 119/82 10/24/2023 12:35 PM CDT Pulse 62 10/24/2023 12:35 PM CDT Temperature 36.4 C (97.5 F) 10/24/2023 12:31 PM CDT Respiratory Rate 20 10/24/2023 12:31 PM CDT Oxygen Saturation 97% 10/24/2023 12:31 PM CDT Inhaled Oxygen Concentration - - Weight 113.4 kg (250 lb) 10/21/2023 5:55 AM CDT Height 185.4 cm (6' 1 ) 10/21/2023 5:55 AM CDT Body Mass Index 32.98 10/21/2023 5:55 AM CDT Plan of Treatment Health Maintenance Due Date Last Done Comments DIABETES ANNUAL FOOT EXAM 1996 DIABETES ANNUAL RETINAL EXAM 1996 DIABETES MICROALBUMIN ANNUAL SCREEN 1996 DTAP/TDAP/TD VACCINES (1 - Tdap) 1997 HEPATITIS B VACCINES (1 of 3 - 19+ 3-dose series) 1997 COLORECTAL SCREENING 2023 Colorectal Cancer Screening 2023 FIT-DNA Q 3 years 2023 FIT/FOBT Q 1 year 2023 Flex Sig/CT Colonography Q 5 years 2023 INFLUENZA VACCINE (#1) 2024 DIABETES HBA1C Q 6 MONTHS 04/16/2024 10/15/2023 LDL CHOLESTEROL ANNUAL 10/15/2024 , 10/16/2023 HPV VACCINES Aged Out No longer eligi ble based on patient's age to complete this topic Procedures Procedure Name Priority Date/Time Associated Diagnosis Comments LIPID RFLX Routine 10/16/2023 5:16 AM VETERINARIAN SMALL ANIMAL HEMOGLOBIN A1C Routine 10/15/2023 1:36 PM VETERINARIAN SMALL ANIMAL from Last 3 Months or Most Recently Relevant to Health Maintenance Results * (ABNORMAL) LIPID RFLX (10/16/2023 5:16 AM VETERINARIAN SMALL ANIMAL) CHOLESTEROL 175 <200 mg/dL 10/16/2023 6:50 AM [facility] TRIGLYCERIDE 416(H) <150 mg/dL 10/16/2023 6:50 AM [facility] HDL 24(L) 40 - 59 mg/dL 10/16/2023 6:50 AM [facility] LDL CALCULATED 10/16/2023 6:50 AM [facility] Comment:Calculated LDL is no t accurate when the Triglyceride value exceeds 400. NON-HDL CHOLESTEROL 151(H) <130 mg/dL 10/16/2023 6:50 AM [facility] Blood Venipuncture / Unknown 10/16/2023 5:16 AM VETERINARIAN SMALL ANIMAL 10/16/2023 6:16 AM VETERINARIAN SMALL ANIMAL Narrative [facility] - 10/16/2023 6:50 AM VETERINARIAN SMALL ANIMAL TOTAL CHOLESTEROL mg/dL Desirable <200 Borderline high 200-239 High >=240 TRIGLYCERIDES mg/dL Normal <150 Borderline high 150-199 High 200-499 Very high >=500 HDL CHOLESTEROL mg/dL Low <40 Normal 40-59 Desirable >=60 NON HDL CHOLESTEROL mg/dL Optimal <130 Near Optimal 130-159 Borderline High 160-189 Very High >=190 CALCULATED LDL mg/dL LDL <70, OPTIMAL if have Atherosclerotic cardiovascular disease (ASCVD) or intermediate or higher (>7.5%) 10 year risk of ASCVD including most adults with diabetes. LDL <100, Optimal in adult patients with low (<7.5%) 10 year ASCVD risk LDL 100-160, Suboptimal LDL >160, High LDL >190, Very high ATPIII Guidelines Reference Ranges for Lipid Panels (NCEP/AMA) . Kylee Li PA-C CHEMISTRY ORDERABLES Leslie padilla Result [facility] CLIA# [id number] [address] [place] [address] * (ABNORMAL) HEMOGLOBIN A1C (10/15/2023 1:36 PM VETERINARIAN SMALL ANIMAL) HEMOGLOBIN A1C 5.9(H) <=5.6 % 10/15/2023 6:38 PM VETERINARIAN SMALL ANIMAL [facility] EST. AVG GLUCOSE, A1C 123 mg/dL 10/15/2023 6:38 PM VETERINARIAN SMALL ANIMAL [facility] Blood Venipuncture / Unknown 10/15/2023 1:36 PM VETERINARIAN SMALL ANIMAL 10/15/2023 1:50 PM VETERINARIAN SMALL ANIMAL Narrative [facility] - 10/15/2023 6:38 PM VETERINARIAN SMALL ANIMAL HGB A1C INTERPRETATION NORMAL: <5.7% PRE-DIABETES: 5.7 - 6.4% DIABETES: 6.5% OR GREATER Kylee Li PA-C CHEMISTRY ORDERABLES Leslie l Result [facility] CLIA# [id number] [place] [address] from Last 3 Months or Most Recently Relevant to Health Maintenance Insurance [facility] [place] [id number] Advance Directives For more information, please contact: [phone] * Full Code (Latest Code Status on File) Date Activated Date Inactivated Comments 10/21/2023 7:24 AM 10/24/2023 9:15 PM * Full Code Date Activated Date Inactivated Comments 10/17/2023 8:10 AM 10/20/2023 5:02 PM * Full Code Date Activated Date Inactivated Comments 10/15/2023 6:17 PM 10/16/2023 6:10 PM
[2025-01-01 11:42] LABS: Basophils Percent Auto 0.7 % (0.2-1.2); Eosinophils Absolute Auto 0.2 K/mm3 (0-0.3); Hematocrit 45.7 % (42.0-52.0); Hemoglobin 16.2 g/dL (14.0-18.0); Immature Granulocyte Absolute 0.03 K/mm3 (0.00-0.031); Immature Granulocyte Percent A 0.5 % (0-0.5); Immature Platelet Fraction Pct 1.8 % (0.9-11.2); Lymphocytes Absolute Auto 1.86 K/mm3 (0.9-3.2); Lymphocytes Percent Auto 33.6 % (18.3-44.2); Mean Corpuscular HGB Conc 35.4 g/dl (32-36); Mean Corpuscular Hemoglobin 31.2 pg (26-34); Mean Corpuscular Volume 88.1 fl (80-100); Mean Platelet Volume 8.2 fl (7.4-10.4); Monocytes Absolute Auto 0.4 K/mm3 (0.1-0.6); Monocytes Percent Auto 7.8 % (2.6-8.5); Neutrophils Percent Auto 53.4 % (45.5-73.1); Platelet Count Result 145 k/mm3 (150-375); Red Blood Count 5.19 M/mm3 (4.6-6.20); Red Cell Distribution Width 12.8 % (11.5-14.5); White Blood Count 5.5 K/mm3 (4.5-10.0)
[2025-01-01 11:45] VITALS: PULSE 67
[2025-01-01 11:46] VITALS: BP 158/94; PULSE 66; RESP 12; O2SAT 96
[2025-01-01] MEDS: ASPIRIN 81 MG CHEWABLE TABLET 324 MG PO (11:49)
[2025-01-01 11:54] LABS: INR 0.9; Partial Thromboplastin Time 25.4 Seconds (22.3-36.8); Prothrombin Time 12.8 Seconds (11.1-14.7)
[2025-01-01 12:19] LABS: Alanine Aminotransferase 37 U/L (6-50); Albumin Level 4.3 g/dL (3.5-5.1); Alkaline Phosphatase 80 U/L (38-126); Anion Gap 8 mmol/L (4-12); Aspartate Amino Transferase 40 U/L (17-59); Bilirubin,Total 0.7 mg/dL (0.2-1.3); Blood Urea Nitrogen 10 mg/dL (9-20); Calcium 8.9 mg/dL (8.4-10.2); Carbon Dioxide 23 mmol/L (22-30); Chloride 100 mmol/L (98-107); Estimated CRCL calculation 145 ml/min; Estimated Glomerular Filt Rate > 60; Glucose 298 mg/dL (65-110); Lipase 182 U/L (23-300); Potassium 4.2 mmol/L (3.4-5.0); Sodium 131 mmol/L (137-145)
[2025-01-01 12:25] LABS: Troponin I 0.022 ng/mL (0.000-0.034)
[2025-01-01] MEDS: ONDANSETRON INJ 4 MG/2 ML VIAL IV PUSH (12:33)
[2025-01-01] MEDS: NITROGLYCERIN SL 0.4 MG TABLET SUBLINGUAL (12:33)
[2025-01-01 12:35] VITALS: BP 133/105; PULSE 77; RESP 16; O2SAT 99
--- OUTSIDE RECORDS SUMMARY | 2025-01-01 12:45 | XMS_ITS | Clinical Summary ---
Author Organization [facility] Address [address] [place] [address] Phone Care Team Providers Care Heavy Equipment Technician Name Role Phone Duglas Capmbell MD Primary Care Provider Allergies Active Allergy [...] drink = 0.6 oz pur e alcohol) [facility] Utilities Answer Date Recorded In the past 12 months has th e [place] Dentist, gas, oil, or water [employer] threatened to shut off services in your [...] often do you attend chur ch or protestant services? 1 to 4 times per year 11/02/2023 Do you belong to any clubs o r organizations such as catholic groups, unions, fraternal or athletic groups, or [...] medical care, and heating? Patient declined 11/02/2023 [facility] [place] of Occupat ional Health - Occupational Stress [...] place to sleep or slept in a jail (including now)? No 11/02/2023 Sex and Gender [...] MEDICAID [place] [id number] Advance Directives * Full Code (Latest Code Status on File) Date Activated Date Inactivated Comments 11/02/2023 3:32 PM 11/03/2023 4:53 PM CPR-Full Rommel atment: FULL ARREST: Attempt Resuscitation/CPR wit intubation and mechanical ventilation. PRE-ARREST: Use entire range of life support measures to stabilize the patient. Care Teams Heavy Equipment Technician Relationship Specialty Start Date End Date Duglas Campbell MD [address] [place] [address] PCP - General Internal Medicine 11/02/23
--- OUTSIDE RECORDS SUMMARY | 2025-01-01 12:45 | XMS_ITS | CONTINUITY OF CARE DOCUMENT ---
Author Name arletyvonnekadi Address Unknown Organization [facility] Address [address] [place] [address] Phone [phone] Care Team Providers Care Congressional Aide Name Role Phone Dickson HAYDEN, Dinorah Unavailable SHALA KOENIG MD Unavailable [phone] SHALA KOENIG MD Unavailable INSURANCE PROVIDERS Payer name Policy type / Coverage type [place] red libertarian ID [facility] [id number]
--- OUTSIDE RECORDS SUMMARY | 2025-01-01 12:45 | XMS_ITS | Clinical Summary ---
Author Organization [facility] Address [address] [place] [address] Phone Care Team Providers Care Instrument Maintenance Supervisor Name Role Phone Unavailable Primary Care Provider [...] mouth daily. 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 Gender Identity Not on file Sexual Orientation [...] Comments LIPID RFLX Routine 10/16/2023 5:16 AM SEASONAL PACKAGE HANDLER HEMOGLOBIN A1C Routine 10/15/2023 1:36 PM SEASONAL PACKAGE HANDLER from Last 3 Months or Most Recently Relevant to Health Maintenance Results * (ABNORMAL) LIPID RFLX (10/16/2023 5:16 AM SEASONAL PACKAGE HANDLER) CHOLESTEROL 175 <200 mg/dL 10/16/2023 6:50 AM [facility] TRIGLYCERIDE 416(H) <150 mg/dL 10/16/2023 6:50 AM [facility] HDL 24(L) 40 - 59 mg/dL 10/16/2023 6:50 AM [facility] LDL CALCULATED 10/16/2023 6:50 AM [facility] Comment:Calculated LDL is no t accurate when the Triglyceride value exceeds 400. NON-HDL CHOLESTEROL 151(H) <130 mg/dL 10/16/2023 6:50 AM [facility] Blood Venipuncture / Unknown 10/16/2023 5:16 AM SEASONAL PACKAGE HANDLER 10/16/2023 6:16 AM SEASONAL PACKAGE HANDLER Narrative [facility] - 10/16/2023 6:50 AM SEASONAL PACKAGE HANDLER TOTAL CHOLESTEROL mg/dL Desirable <200 Borderline high [...] Li PA-C CHEMISTRY ORDERABLES Leslie padilla Result [facility] CLIA# [id number] [address] [place] [address] * (ABNORMAL) HEMOGLOBIN A1C (10/15/2023 1:36 PM SEASONAL PACKAGE HANDLER) HEMOGLOBIN A1C 5.9(H) <=5.6 % 10/15/2023 6:38 PM SEASONAL PACKAGE HANDLER [facility] EST. AVG GLUCOSE, A1C 123 mg/dL 10/15/2023 6:38 PM SEASONAL PACKAGE HANDLER [facility] Blood Venipuncture / Unknown 10/15/2023 1:36 PM SEASONAL PACKAGE HANDLER 10/15/2023 1:50 PM SEASONAL PACKAGE HANDLER Narrative [facility] - 10/15/2023 6:38 PM SEASONAL PACKAGE HANDLER HGB A1C INTERPRETATION NORMAL: <5.7% PRE-DIABETES: 5.7 - 6.4% DIABETES: 6.5% OR GREATER Kylee Li PA-C CHEMISTRY ORDERABLES Leslie l Result [facility] CLIA# [id number] [address] [place] [address] from Last 3 Months or Most Recently Relevant to Health Maintenance Insurance [facility] [place] [id number] Advance Directives For more information, please contact: [phone] * Full Code (Latest Code Status on File) Date Activated Date Inactivated Comments 10/21/2023 7:24 AM 10/24/2023 9:15 PM * Full Code Date Activated Date Inactivated Comments 10/17/2023 8:10 AM 10/20/2023 5:02 PM * Full Code Date Activated Date Inactivated Comments 10/15/2023 6:17 PM 10/16/2023 6:10 PM
--- OUTSIDE RECORDS SUMMARY | 2025-01-01 12:45 | XMS_ITS | Encounter Summary ---
Author Organization [facility] Address [address] [place] [address] Care Team Providers Care Inspector Subassemblies Name Role Phone Unavailable Primary Care Provider Unavailabl e Reason for Visit * Reason Onset Date Comments Patient is on chest pain pathway 10/16/2023 Spoke w/Brenda at Dr. Swapna calle/Dr. Sweeney conference specialist Encounter Details Date Type Department Care Team (Late st Contact Info) Description 10/16/2023 Telephone [facility] Admitting [address] [place] [address] Kylee Li PA-C [address] [place] [address] Patient is on chest pain pathway (Spoke w/Brenda at Dr. Swapna calle/Dr. 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
--- OUTSIDE RECORDS SUMMARY | 2025-01-01 12:45 | XMS_ITS | Clinical Summary ---
Author Organization [facility] Address [address] [place] [address] Care Team Providers Care Dental Technician Instructor Name Role Phone Duglas Campbell MD Primary [...] to complete this topic Insurance Care Teams Dental Technician Instructor Relationship Specialty [place] [address] [place] [address] PCP - General Gastroenterology 10/20/23
--- OUTSIDE RECORDS SUMMARY | 2025-01-01 12:45 | XMS_ITS | Referral Summary ---
Author Organization [facility] Address [address] [place] [address] Care Team Providers Care Customer Supply Coordinator Name Role Phone Duglas Campbell MD Primary [...] Plan of Treatment Not on file [place] [address] PLAN [place] [id number] [facility] PLAN [place] [id number] Care Teams Customer Supply Coordinator Relationship Specialty Start Date End Date Duglas Campbell MD [address] [address] PCP - General Gastroenterology 10/20/23
[2025-01-01 13:01] VITALS: BP 138/108; PULSE 85; RESP 19; O2SAT 96
[2025-01-01 15:13] LABS: Troponin I 0.023 ng/mL (0.000-0.034)
[2025-01-01] MEDS: BELLADONNA ALK/PHENOB ELIX 10 ML, MAG HYDROX/ALUMINUM HYD/SIMETH 30 ML, LIDOCAINE 2% VI... PO (15:15)
[2025-01-01 15:16] VITALS: BP 153/90; PULSE 86; RESP 18; O2SAT 99
--- NOTE | 2025-01-01 15:31 | ED_ITS ---
HPI - Chest Pain General Chief Complaint: Chest Pain Stated Complaint: Chest pain since Wed, SHOB, lightheaded Time Seen by Provider: 01/01/25 12:03 History of Present Illness HPI narrative: Patient is a 44-year-old male who presents ER with chest pain. Ongoing for 3 days. 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 Has waves of intensity. No change with exertion. Occasional shortness of breath lightheadedness. He has been having nausea with this with occasional vomiting. Also some mild diarrhea. No known sick contacts. History cardiac stents Related Data Allergies Allergy/AdvReac Type Severity Reaction Status Date / Time Penicillins AdvReac Rash Verified 01/01/25 11:25 Review of Systems 2 Review of Systems: All systems reviewed & are unremarkable except as noted in HPI and below Constitutional: Constitutional: Reports no additional constitutional complaints ENT: Reports system reviewed and no additional complaints, except as documented Cardiovascular: Cardiovascular: Reports no additional cardiovascular complaints Respiratory: Respiratory: Reports no additional respiratory complaints Gastrointestinal: Gastrointestinal: Reports no additional gastrointestinal complaints Musculoskeletal: Musculoskeletal: Reports no additional musculoskeletal complaints [facility] Past Medical History Medical History CAD (coronary artery disease) Diabetes previously on metformin and Farxiga; meds discontinued and now resolved per patient HLD (hyperlipidemia) not on meds HTN (hypertension) History of heart failure Sep 2023; resolved? Surgical History Surgical History H/O heart artery stent x3; [facility] Sep 2023 Family History Family History Mother Acute myocardial infarction, Onset Age: 70 Father Acute myocardial infarction, Onset Age: 65 S/P triple vessel bypass Social History Social History Alcohol intake: never Substance use: current Other substance usage details: 2-3 times per week Exam 2 Narrative: GENERAL: Well-appearing, well-nourished, and in no acute distress. HEAD: Normocephalic, atraumatic. ENT: Mucous membranes moist. NECK: Supple. CHEST: Clear to auscultation. No respiratory distress. HEART: Regular rate and rhythm. Normal peripheral pulses. ABDOMEN: Soft, mild epigastric tenderness and mild right lower quadrant tenderness, nondistended. EXTREMITIES: Normal range of motion. No edema. SKIN: Warm, dry, no rash. NEURO: Alert and oriented x3. PSYCH: Normal mood and affect. Course Course Emergency Course: Mild improvement with GI cocktail. No improvement with nitroglycerin. Reflux esophagitis. Discharge home. Troponin negative x2. Vital Signs Vital signs: Vital Signs Pulse Rate 67 01/01/25 11:45 Pulse Rate 86 01/01/25 15:16 Respiratory Rate 18 01/01/25 15:16 Blood Pressure 153/90 H 01/01/25 15:16 Pulse Oximetry 99 01/01/25 15:16 MDM - Chest Pain Lab Data 01/01/25 11:35 01/01/25 11:35 Labs: Lab Results 01/01/25 01/01/25 Range/Units 11:35 14:31 WBC 5.5 (4.5-10.0) K/mm3 RBC 5.19 (4.6-6.20) M/mm3 Hgb 16.2 (14.0-18.0) g/dL Hct 45.7 (42.0-52.0) % MCV 88.1 (80-100) fl MCH 31.2 (26-34) pg MCHC 35.4 (32-36) g/dl RDW 12.8 (11.5-14.5) % Plt Count 145 L (150-375) k/mm3 MPV 8.2 (7.4-10.4) fl Immature Gran % (Auto) 0.5 (0-0.5) % Neut % (Auto) 53.4 (45.5-73.1) % Lymph % (Auto) 33.6 (18.3-44.2) % Yell % (Auto) 7.8 (2.6-8.5) % Eos % (Auto) 4.0 (0-4.4) % Baso % (Auto) 0.7 (0.2-1.2) % Lymph # (Auto) 1.86 (0.9-3.2) K/mm3 Yell # (Auto) 0.4 (0.1-0.6) K/mm3 Eos # (Auto) 0.2 (0-0.3) K/mm3 Baso # (Auto) 0.0 (0.0-0.1) K/mm3 Abs Immat Gran (auto) 0.03 (0.00-0.031) K/mm3 Absolute Neuts (auto) 3.0 (1.3-6.7) K/mm3 Absolute Nucleated RBC 0.000 (0.0-0.012) K/mm3 Nucleated RBC % 0.0 (0.0-0.2) % % Immature Plt Fraction 1.8 (0.9-11.2) % PT 12.8 (11.1-14.7) Seconds INR 0.9 APTT 25.4 (22.3-36.8) Seconds Sodium 131 L (137-145) mmol/L Potassium 4.2 (3.4-5.0) mmol/L Chloride 100 (98-107) mmol/L Carbon Dioxide 23 (22-30) mmol/L Anion Gap 8 (4-12) mmol/L BUN 10 (9-20) mg/dL Creatinine 0.74 (0.7-1.3) mg/dL Estim Creat Clear Calc 145 ml/min Estimated GFR > 60 (59 - ) Glucose 298 H (65-110) mg/dL Calcium 8.9 (8.4-10.2) mg/dL Total Bilirubin 0.7 (0.2-1.3) mg/dL AST 40 (17-59) U/L ALT 37 (6-50) U/L Alkaline Phosphatase 80 (38-126) U/L Troponin I 0.022 0.023 (0.000-0.034) ng/mL Total Protein 7.0 (6.3-8.2) g/dL Albumin 4.3 (3.5-5.1) g/dL Lipase 182 (23-300) U/L Imaging Data Radiologist's impression: ITS Impressions Chest X-Ray 01/01/25 12:11 IMPRESSION: 1: NO ACUTE CARDIOPULMONARY DISEASE. Abdomen/Pelvis CT 01/01/25 13:28 IMPRESSION: 1. No evidence of appendicitis, diverticulitis or intestinal obstruction. 2. Fat infiltration of the liver. 3. Slight dilatation of the right internal iliac artery with intramural thrombus. 4. Thickened distal esophagus suggestive of reflux esophagitis. ECG Data EKG #1: ECG completion date: 01/01/25 ECG completion time: 11:31 EKG Interpretation: normal rate (63), sinus rhythm, PVCs, normal QRS, normal QT and NL axis Discharge Plan Discharge Clinical Impression: Esophagitis, reflux Patient Disposition: Home Condition: Stable Instructions: Antibiotic Form, Diet for Stomach Ulcers and Gastritis (ED), GERD (Gastroesophageal Reflux Disease) (ED) Additional Instructions: Return to the emergency department if you develop severe abdominal pain, severe nausea and vomiting to the point where you are unable to keep down fluids, if you develop chest pain or difficulty breathing, blood in your stool, dizziness or fainting, or if you develop any other new or concerning symptoms as these could be signs of more serious medical illness. Try to stay well hydrated. Patient Language: Nigerian Prescriptions: New pantoprazole [Protonix] 40 mg tablet,delayed release (DR/EC) 40 mg PO HS Qty: 20 0RF No Action ibuprofen 600 mg tablet 600 mg PO TID PRN (Reason: pain) Qty: 30 0RF acetaminophen 500 mg capsule 1,000 mg PO Q6H PRN (Reason: pain) Qty: 30 0RF dicyclomine 10 mg capsule 10 mg PO BID PRN (Reason: abdominal pain) Qty: 10 0RF Follow-up/Referrals: Venkata,Duglas Yeung MD [Primary Care Provider] - 1 Week
[2025-01-01 16:14] VITALS: BP 143/89; PULSE 76; RESP 16; O2SAT 96
== END 2025-01-01 16:18 | disposition home or self-care (01) ==
PROVIDERS: Emergency Medicine; Emergency Provider Emergency Medicine; PCP Internal Medicine Gastroenterology
DX: K21.00 Gastro-esophageal reflux disease with esophagitis, without bleeding (principal); I25.10 Atherosclerotic heart disease of native coronary artery without angina pectoris; E11.9 Type 2 diabetes mellitus without complications; E78.5 Hyperlipidemia, unspecified; I10 Essential (primary) hypertension
CPT/HCPCS: 36415; 71046; 74177; 80053; 83690; 84484; 85025; 85055; 85610; 85730; 93005; 96374; 99284; A9270; J2405; Q9967

== ENCOUNTER 2025-01-02 01:09 | Emergency (ER) | payer BC, SELFPAY ==
--- OUTSIDE RECORDS SUMMARY | 2025-01-02 01:12 | XMS_ITS | Clinical Summary ---
Author Organization [facility] Address [address] [place] [address] Phone Care Team Providers Care Coal Digger Name Role Phone Duglas Campbell MD Primary [...] drink = 0.6 oz pur e alcohol) [facility] Utilities Answer Date Recorded In the past 12 months has th e [employer], gas, oil, or water [employer] threatened to shut off services in your [...] often do you attend chur ch or caodaism services? 1 to 4 times per year 11/02/2023 Do you belong to any clubs o r organizations such as orthodoxy groups, unions, fraternal or athletic groups, or [...] medical care, and heating? Patient declined 11/02/2023 [facility] of Occupat ional Health - Occupational Stress [...] MEDICAID [place] [id number] Advance Directives * Full Code (Latest Code Status on File) Date Activated Date Inactivated Comments 11/02/2023 3:32 PM 11/03/2023 4:53 PM CPR-Full Rommel atment: FULL ARREST: Attempt Resuscitation/CPR wit intubation and mechanical ventilation. PRE-ARREST: Use entire range of life support measures to stabilize the patient. Care Teams Coal Digger Relationship Specialty Start Date End Date Duglas Campbell MD [address] [place] [address] PCP - General Internal Medicine 11/02/23
--- OUTSIDE RECORDS SUMMARY | 2025-01-02 01:12 | XMS_ITS | Referral Summary ---
Author Organization [facility] Address [address] [place] [address] Care Team Providers Care Want Ad Clerk Name Role Phone Duglas Campbell MD Primary [...] Plan of Treatment Not on file [place] [address] [place] [address] PLAN [place] [id number] [facility] PLAN [place] [id number] Care Teams Want Ad Clerk Relationship Specialty Start Date End Date Duglas Campbell MD [address] [address] PCP - General Gastroenterology 10/20/23
--- OUTSIDE RECORDS SUMMARY | 2025-01-02 01:12 | XMS_ITS | Clinical Summary ---
Author Organization [facility] Address [address] [place] [address] Care Team Providers Care Fish Boning Machine Feeder Name Role Phone Duglas Campbell MD Primary [...] to complete this topic Insurance Care Teams Fish Boning Machine Feeder Relationship Specialty [place] [address] [place] [address] PCP - General Gastroenterology 10/20/23
--- OUTSIDE RECORDS SUMMARY | 2025-01-02 01:12 | XMS_ITS | Clinical Summary ---
Author Organization [facility] Address [address] [place] [address] Phone Care Team Providers Care Cook Helper Pastry Name Role Phone Unavailable Primary Care Provider [...] mouth daily. 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 Gender Identity Not on file Sexual Orientation [...] Comments LIPID RFLX Routine 10/16/2023 5:16 AM DRAWING MACHINE OPERATOR HEMOGLOBIN A1C Routine 10/15/2023 1:36 PM DRAWING MACHINE OPERATOR from Last 3 Months or Most Recently Relevant to Health Maintenance Results * (ABNORMAL) LIPID RFLX (10/16/2023 5:16 AM DRAWING MACHINE OPERATOR) CHOLESTEROL 175 <200 mg/dL 10/16/2023 6:50 AM [facility] TRIGLYCERIDE 416(H) <150 mg/dL 10/16/2023 6:50 AM [facility] HDL 24(L) 40 - 59 mg/dL 10/16/2023 6:50 AM [facility] LDL CALCULATED 10/16/2023 6:50 AM [facility] Comment:Calculated LDL is no t accurate when the Triglyceride value exceeds 400. NON-HDL CHOLESTEROL 151(H) <130 mg/dL 10/16/2023 6:50 AM [facility] Blood Venipuncture / Unknown 10/16/2023 5:16 AM DRAWING MACHINE OPERATOR 10/16/2023 6:16 AM DRAWING MACHINE OPERATOR Narrative [facility] - 10/16/2023 6:50 AM DRAWING MACHINE OPERATOR TOTAL CHOLESTEROL mg/dL Desirable <200 Borderline high [...] Li PA-C CHEMISTRY ORDERABLES Leslie padilla Result [facility] CLIA# [id number] [place] [address] * (ABNORMAL) HEMOGLOBIN A1C (10/15/2023 1:36 PM DRAWING MACHINE OPERATOR) HEMOGLOBIN A1C 5.9(H) <=5.6 % 10/15/2023 6:38 PM DRAWING MACHINE OPERATOR [facility] EST. AVG GLUCOSE, A1C 123 mg/dL 10/15/2023 6:38 PM DRAWING MACHINE OPERATOR [facility] Blood Venipuncture / Unknown 10/15/2023 1:36 PM DRAWING MACHINE OPERATOR 10/15/2023 1:50 PM DRAWING MACHINE OPERATOR Narrative [facility] - 10/15/2023 6:38 PM DRAWING MACHINE OPERATOR HGB A1C INTERPRETATION NORMAL: <5.7% PRE-DIABETES: 5.7 - 6.4% DIABETES: 6.5% OR GREATER Kylee Li PA-C CHEMISTRY ORDERABLES Leslie l Result [facility] CLIA# [id number] [place] [address] from Last 3 Months or Most Recently Relevant to Health Maintenance Insurance [facility] PL[place] [id number] Advance Directives For more information, please contact: [phone] * Full Code (Latest Code Status on File) Date Activated Date Inactivated Comments 10/21/2023 7:24 AM 10/24/2023 9:15 PM * Full Code Date Activated Date Inactivated Comments 10/17/2023 8:10 AM 10/20/2023 5:02 PM * Full Code Date Activated Date Inactivated Comments 10/15/2023 6:17 PM 10/16/2023 6:10 PM
--- OUTSIDE RECORDS SUMMARY | 2025-01-02 01:12 | XMS_ITS | CONTINUITY OF CARE DOCUMENT ---
Author Name arletyvonnekadi Address Unknown Organization [facility] Address [address] [place] [address] Phone [phone] Care Team Providers Care Checkerer Hand Name Role Phone Dickson HAYDEN, Dinorah Unavailable SHALA KOENIG MD Unavailable SHALA KOENIG MD Unavailable [phone] INSURANCE PROVIDERS Payer name Policy type / Coverage type Elliott red libertarian ID [facility] [id number]
--- OUTSIDE RECORDS SUMMARY | 2025-01-02 01:12 | XMS_ITS | Encounter Summary ---
Author Organization [facility] Address [address] [place] [address] Care Team Providers Care Associate Financial Representative Name Role Phone Unavailable Primary Care Provider Unavailabl e Reason for Visit * Reason Onset Date Comments Patient is on chest pain pathway 10/16/2023 Spoke w/Brenda at Dr. 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 Swapna calle/Dr. 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
[2025-01-02 01:13] VITALS: BP 212/97; PULSE 105; RESP 17; TEMP 36.8; O2SAT 97
[2025-01-02 01:43] LABS: Basophils Percent Auto 0.6 % (0.2-1.2); Eosinophils Absolute Auto 0.2 K/mm3 (0-0.3); Eosinophils Percent Auto 2.7 % (0-4.4); Hemoglobin 16.1 g/dL (14.0-18.0); Immature Granulocyte Absolute 0.04 K/mm3 (0.00-0.031); Immature Granulocyte Percent A 0.6 % (0-0.5); Lymphocytes Absolute Auto 1.89 K/mm3 (0.9-3.2); Lymphocytes Percent Auto 28.6 % (18.3-44.2); Mean Corpuscular HGB Conc 35.8 g/dl (32-36); Mean Corpuscular Hemoglobin 31.1 pg (26-34); Mean Platelet Volume 8.1 fl (7.4-10.4); Monocytes Absolute Auto 0.6 K/mm3 (0.1-0.6); Monocytes Percent Auto 8.9 % (2.6-8.5); Neutrophils Absolute Auto 3.9 K/mm3 (1.3-6.7); Neutrophils Percent Auto 58.6 % (45.5-73.1); Platelet Count Result 135 k/mm3 (150-375); Red Blood Count 5.17 M/mm3 (4.6-6.20); Red Cell Distribution Width 12.9 % (11.5-14.5); White Blood Count 6.6 K/mm3 (4.5-10.0)
[2025-01-02 01:55] LABS: Alanine Aminotransferase 42 U/L (6-50); Albumin Level 4.7 g/dL (3.5-5.1); Alkaline Phosphatase 69 U/L (38-126); Anion Gap 16 mmol/L (4-12); Aspartate Amino Transferase 57 U/L (17-59); Bilirubin,Total 0.6 mg/dL (0.2-1.3); Blood Urea Nitrogen 9 mg/dL (9-20); Calcium 8.9 mg/dL (8.4-10.2); Carbon Dioxide 19 mmol/L (22-30); Chloride 97 mmol/L (98-107); Estimated CRCL calculation 134 ml/min; Estimated Glomerular Filt Rate > 60; Glucose 244 mg/dL (65-110); Potassium 3.8 mmol/L (3.4-5.0); Sodium 132 mmol/L (137-145)
[2025-01-02 01:56] LABS: Ethanol < 10 mg/dL (<10)
[2025-01-02 02:08] LABS: Add Urine Microscopic? NO; Appearance Urine Clear (Clear); Bilirubin Urine Negative (Negative); Blood Urine Negative (Negative); Color Urine Yellow (Yellow); Glucose Urine UA 3+ mg/dL (Negative); Ketones Urine Trace mg/dL (Negative); Leukocyte Esterase Ur Negative LEU/UL (Negative); Nitrate Urine Negative (Negative); Protein Urine Negative (Negative); Urobilinogen Urine 0.2 mg/dL (<2.0); pH Urine 5.5 (5.0-9.0)
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
--- NOTE | 2025-01-02 02:36 | ECG_ITS ---
Test Date: 2025-01-02 02:40:55 Measurements Intervals [place] Rate: 83 P: 15 AK: 132 QRS: 31 QRSD: 106 T: 50 QT: 404 QTc: 476 Interpretive Statements SINUS RHYTHM POSSIBLE INFERIOR MYOCARDIAL INFARCTION , PROBABLY OLD [30 ms Q WAVE IN II/aVF] Compared to ECG 01/01/2025 11:31:17 Myocardial infarct finding now present Ventricular premature complex(es) no longer present Electronically Signed On 01-02-2025 17:12:01 CDT by Didier Elkins M.D.
[2025-01-02 02:37] LABS: Influenza A QL RT-PCR Negative (Negative); Influenza B QL RT-PCR Negative (Negative); RSV RNA, RT-PCR Negative (Negative); SARS-CoV-2 RNA PCR Negative (Negative)
[2025-01-02 03:06] VITALS: BP 157/102; PULSE 93; RESP 18; O2SAT 99
[2025-01-02] MEDS: PANTOPRAZOLE 40 MG TABLET PO (03:06)
[2025-01-02] MEDS: METOPROLOL TARTRATE 50 MG TAB PO (03:06)
[2025-01-02 03:18] LABS: Free T4 Free Thyroxine Reflex 0.67 ng/dL (0.78-2.19)
[2025-01-02 03:24] LABS: Troponin I 0.022 ng/mL (0.000-0.034)
--- OUTSIDE RECORDS SUMMARY | 2025-01-02 03:24 | XMS_ITS | CONTINUITY OF CARE DOCUMENT ---
Author Name arletyvonnekadi Address Unknown Organization [facility] Address [address] [facility] [address] [place] [address] Phone [phone] Care Team Providers Care Casting Operator Helper Name Role Phone Dickson HAYDEN, Dinorah Unavailable [phone] SHALA KOENIG MD Unavailable SHALA KOENIG MD Unavailable INSURANCE PROVIDERS Payer name Policy type / Coverage type [place] red green party ID [facility] [id number]
--- OUTSIDE RECORDS SUMMARY | 2025-01-02 03:24 | XMS_ITS | Encounter Summary ---
Author Organization [facility] Address [address] [place] [address] Care Team Providers Care Senior Sales Director Name Role Phone Unavailable Primary Care Provider Unavailabl e Reason for Visit * Reason Onset Date Comments Patient is on chest pain pathway 10/16/2023 Spoke w/Brenda at Dr. Swapna calle/Dr. Sweeney conveyor system dispatcher Encounter Details Date Type Department Care Team (Late st Contact Info) Description 10/16/2023 Telephone [facility] Admitting [address] [place] [address] Kylee Li PA-C [address] [place] [address] Patient is on chest pain pathway (Spoke w/Brenda at Dr. Swapna calle/Dr. 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
--- OUTSIDE RECORDS SUMMARY | 2025-01-02 03:24 | XMS_ITS | Clinical Summary ---
Author Organization [facility] Address [address] [place] [address] Phone Care Team Providers Care Industrial Health And Safety Professor Name Role Phone Unavailable Primary Care Provider [...] mouth daily. 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 Gender Identity Not on file Sexual Orientation [...] Comments LIPID RFLX Routine 10/16/2023 5:16 AM HEAVY EQUIPMENT SERVICE MANAGER HEMOGLOBIN A1C Routine 10/15/2023 1:36 PM HEAVY EQUIPMENT SERVICE MANAGER from Last 3 Months or Most Recently Relevant to Health Maintenance Results * (ABNORMAL) LIPID RFLX (10/16/2023 5:16 AM HEAVY EQUIPMENT SERVICE MANAGER) CHOLESTEROL 175 <200 mg/dL 10/16/2023 6:50 AM [facility] TRIGLYCERIDE 416(H) <150 mg/dL 10/16/2023 6:50 AM [facility] HDL 24(L) 40 - 59 mg/dL 10/16/2023 6:50 AM [facility] LDL CALCULATED 10/16/2023 6:50 AM [facility] Comment:Calculated LDL is no t accurate when the Triglyceride value exceeds 400. NON-HDL CHOLESTEROL 151(H) <130 mg/dL 10/16/2023 6:50 AM [facility] Blood Venipuncture / Unknown 10/16/2023 5:16 AM HEAVY EQUIPMENT SERVICE MANAGER 10/16/2023 6:16 AM HEAVY EQUIPMENT SERVICE MANAGER Narrative [facility] - 10/16/2023 6:50 AM HEAVY EQUIPMENT SERVICE MANAGER TOTAL CHOLESTEROL mg/dL Desirable <200 Borderline high [...] Li PA-C CHEMISTRY ORDERABLES Leslie padilla Result [facility] CLIA# [id number] [place] [address] * (ABNORMAL) HEMOGLOBIN A1C (10/15/2023 1:36 PM HEAVY EQUIPMENT SERVICE MANAGER) HEMOGLOBIN A1C 5.9(H) <=5.6 % 10/15/2023 6:38 PM HEAVY EQUIPMENT SERVICE MANAGER [facility] EST. AVG GLUCOSE, A1C 123 mg/dL 10/15/2023 6:38 PM HEAVY EQUIPMENT SERVICE MANAGER [facility] Blood Venipuncture / Unknown 10/15/2023 1:36 PM HEAVY EQUIPMENT SERVICE MANAGER 10/15/2023 1:50 PM HEAVY EQUIPMENT SERVICE MANAGER Narrative [facility] - 10/15/2023 6:38 PM HEAVY EQUIPMENT SERVICE MANAGER HGB A1C INTERPRETATION NORMAL: <5.7% PRE-DIABETES: 5.7 - 6.4% DIABETES: 6.5% OR GREATER Kylee Li PA-C CHEMISTRY ORDERABLES Leslie l Result [facility] CLIA# [id number] [address] [place] [address] from Last 3 Months or Most Recently Relevant to Health Maintenance Insurance [facility] [place] [id number] Advance Directives For more information, please contact: [phone] * Full Code (Latest Code Status on File) Date Activated Date Inactivated Comments 10/21/2023 7:24 AM 10/24/2023 9:15 PM * Full Code Date Activated Date Inactivated Comments 10/17/2023 8:10 AM 10/20/2023 5:02 PM * Full Code Date Activated Date Inactivated Comments 10/15/2023 6:17 PM 10/16/2023 6:10 PM
--- OUTSIDE RECORDS SUMMARY | 2025-01-02 03:24 | XMS_ITS | Referral Summary ---
Author Organization [facility] Address [address] [place] [address] Care Team Providers Care Wet Chemistry Analyst Name Role Phone Duglas Campbell MD Primary [...] Plan of Treatment Not on file Insurance [place] [address] PLAN [place] [id number] [facility] PLAN [place] [id number] Care Teams Wet Chemistry Analyst Relationship Specialty Start Date End Date Duglas Campbell MD [address] [address] PCP - General Gastroenterology 10/20/23
--- OUTSIDE RECORDS SUMMARY | 2025-01-02 03:24 | XMS_ITS | Clinical Summary ---
Author Organization [facility] Address [address] [place] [address] Phone Care Team Providers Care Construction Checker Name Role Phone Duglas Campbell MD Primary [...] drink = 0.6 oz pur e alcohol) [facility] Utilities Answer Date Recorded In the past 12 months has th e [employer], gas, oil, or water [employer] threatened to shut off services in your [...] often do you attend chur ch or spiritism services? 1 to 4 times per year 11/02/2023 Do you belong to any clubs o r organizations such as mormon groups, unions, fraternal or athletic groups, or [...] medical care, and heating? Patient declined 11/02/2023 [facility] [place] of Occupat ional Health - Occupational Stress [...] place to sleep or slept in a alf (including now)? No 11/02/2023 Sex and Gender [...] [place] [id number] Advance Directives * Full Code (Latest Code Status on File) Date Activated Date Inactivated Comments 11/02/2023 3:32 PM 11/03/2023 4:53 PM CPR-Full Rommel atment: FULL ARREST: Attempt Resuscitation/CPR wit intubation and mechanical ventilation. PRE-ARREST: Use entire range of life support measures to stabilize the patient. Care Teams Construction Checker Relationship Specialty Start Date End Date Duglas Campbell MD [address] [place] [address] PCP - General Internal Medicine 11/02/23
--- OUTSIDE RECORDS SUMMARY | 2025-01-02 03:24 | XMS_ITS | Clinical Summary ---
Author Organization [facility] Address [address] [place] [address] Care Team Providers Care Hydrogenation Still Operator Name Role Phone Duglas Campbell MD Primary [...] to complete this topic Insurance Care Teams Hydrogenation Still Operator Relationship Specialty [place] [address] [place] [address] PCP - General Gastroenterology 10/20/23
[2025-01-02 03:27] LABS: Amphetamine Screen Urine Negative (Negative); Barbiturate Screen Urine Negative (Negative); Benzodiazepines Screen Urine Negative (Negative); Cannabinoid Screen Urine Negative (Negative); Cocaine Screen Urine Negative (Negative); Methadone Screen Urine Negative (Negative); Opiate Screen Urine Negative (Negative); Phencyclidine Screen Urine Negative (Negative)
[2025-01-02 03:32] LABS: T4 Thyroxine 6.15 ug/dL (5.53-11.0)
[2025-01-02 06:10] LABS: Total Triiodothyronine (T3) 1.05 NG/ML (0.82-1.58)
[2025-01-02 11:03] VITALS: BP 138/78; PULSE 86; RESP 18; TEMP 36.6; O2SAT 98
--- NOTE | 2025-01-02 11:49 | PC.NURSE ---
Intake at [facility] called to request EKG. EKG faxed.
--- NOTE | 2025-01-02 12:06 | PC.NURSE ---
[facility] due to them not having cardiology they can not accept the patient because they wouldn't have anyone to manage his medical issues and due to his medical history hospitalist doesn't feel comfortable admitting him without cardiology
--- NOTE | 2025-01-02 12:15 | PC.NURSE ---
1214- spoke with Ivette with Crisis about [facility] declining the patient due to lack of cardiology.
--- NOTE | 2025-01-02 12:42 | PC.NURSE ---
spoke with Ivette from Crisis at this time, [facility] declines the patient due to lack of beds. Ivette gave two other facilities and fax numbers to fax the chart to.
--- NOTE | 2025-01-02 12:43 | PC.NURSE ---
Spoke with Ivette from Crisis, [facility] has yet to review the patients chart and will when they are able.
--- NOTE | 2025-01-02 18:08 | PC.NURSE ---
Ivette Carter NP from [facility] called to state that they are accepting the patient and that the updates provided to her were sufficient for report just to call for patient eta when transport is set up.
--- NOTE | 2025-01-02 22:28 | PC.NURSE ---
called and spoke with Francine in admissions and let her know that the patient has left our facility.
== END 2025-01-02 22:29 ==
PROVIDERS: Emergency Provider Student in an Organized Health Care Education/Training Program; PCP Internal Medicine Gastroenterology
DX: R45.851 Suicidal ideations (principal); R07.9 Chest pain, unspecified; E11.65 Type 2 diabetes mellitus with hyperglycemia; E03.8 Other specified hypothyroidism; Z59.00 Homelessness unspecified; I25.10 Atherosclerotic heart disease of native coronary artery without angina pectoris; I10 Essential (primary) hypertension; Z76.0 Encounter for issue of repeat prescription; Z11.59 Encounter for screening for other viral diseases
CPT/HCPCS: 36415; 80053; 80307; 81003; 82077; 84436; 84439; 84443; 84480; 84484; 85025; 87637; 93005; 99285; A9270

== ENCOUNTER 2025-05-14 22:22 | Emergency (ER) | payer BC, SELFPAY ==
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
[2025-05-14 22:25] VITALS: BP 175/92; PULSE 71; RESP 18; TEMP 36.6; O2SAT 98
--- OUTSIDE RECORDS SUMMARY | 2025-05-14 22:26 | XMS_ITS | Clinical Summary ---
Author Organization [facility] Address [address] [place] [id number] Care Team Providers Care Punch Finisher Name Role Phone Unavailable Primary Care Provider Unavailabl e Social History Tobacco Use Types Packs/Day Years Used Date Smoking Tobacco: Never Assessed Sex and Gender Information Value Date Recorded Sex Assigned at Not on file Legal Sex Male 6:08 PM CDT Gender Identity Not on file Sexual Orientation Not on file Plan of Treatment Health Maintenance Due Date Last Done Comments Colorectal Cancer Screening Colonoscopy (10 Years) 1978 Annual Physical 1981 Hepatitis C 1996 DTaP, Tdap and Td Vaccines ( 1 - Tdap) 1997 Hepatitis B Vaccines (1 of 3 - 19+ 3-dose series) 1997 COVID-19 Vaccine (2023-2 5 season) 2025 Meningococcal B Vaccine Aged Out No l onger eligible based on patient's age to complete this topic Meningococcal Vaccine Aged Out No milly livier eligible based on patient's age to complete this topic Pneumococcal Vaccine: Pediat rics (0 to 5 Years) and At-Risk Patients (6 to 49 Years) Aged Out No longer eligible b ased on patient's age to complete this topic RSV Immunizations Under 20 Months Aged Out No longer eligible based on patient's age to complete this topic
--- OUTSIDE RECORDS SUMMARY | 2025-05-14 22:26 | XMS_ITS | Clinical Summary ---
Author Organization [facility] Address [address] [place] [address] Care Team Providers Care Attendant Lodging Facilities Name Role Phone Duglas Campbell MD Primary [...] Medical History Date Comments Hypertension Diabetes mellitus Depression Anxiety Social History Tobacco Use Types [...] 8:55 AM CDT Height 185.4 cm (6' 1) 11/03/2023 3:51 PM CDT Body Mass Index 32.98 11/03/2023 3:51 PM CDT Plan of Treatment Health Maintenance Due Date Last Done Comments Colon Cancer Screening-Colonoscopy 1978 Depression Screening 1978 Hepatitis C Screening 1978 DTaP/Tdap/Td Vaccine (1 - Tdap) 1989 Hepatitis B Screening 1996 Regular Well Visit/Exam 18-64 1996 Influenza Vaccine (#1) 2025 HPV Vaccines Aged Out No longer eligi ble based on patient's age to complete this topic Pneumococcal vaccine <65 Aged Out No longer eligible based on patient's age to complete this topic Insurance Care Teams Attendant Lodging Facilities Relationship Specialty Start Date End Date Duglas Campbell MD [address] [place] [address] PCP - General Gastroenterology 10/20/23
--- OUTSIDE RECORDS SUMMARY | 2025-05-14 22:26 | XMS_ITS | Data Portability ---
Author Organization [facility] Address [address] [place] [address] Assessment No assessment recorded. Plan of Treatment Reminders Order Date Submit Date Provider Last Modified By Organization Details Last Modified Time Details Appointments ANY 15 2024 09:15A M Aiden Quintana MD Not available Not available Not available Lab SHAUNA (antinu clear antibod ies) screen, serum 2024 025 [facility], [address] [place] [address], [address], [place], [address], 01/21/2025 11:13:23 erythro cyte sedimen tation rate by westerg suzy method 2024 025 [facility], [address] [place] [address], [address], [place], [address], 01/21/2025 11:13:24 C reactiv e protein , QN, serum or plasma 2024 025 [facility], [address] [facility], [address], [place], [address], 01/21/2025 11:13:26 HbA1c (hemogl obin A1c), blood 2024 025 [id number] In-Office Order, Internal Use Only DO Not Attach Compendium DO Not Attach Compendium, Do Not Delete/merge, [id number] 01/20/2025 16:38:10 PSA, total, serum or plasma 2022 023 rubén [facility], [address], [address], [place], [address], 05/19/2024 10:02:21 HbA1c (hemogl obin A1c), blood 2022 023 [id number] In-Office Order, Internal Use Only DO Not Attach Compendium DO Not Attach Compendium, Do Not Delete/merge, [id number] 05/28/2023 14:59:42 CMP, serum or plasma 2022 023 rubén [facility], [address], [address], [place], [address], 05/19/2024 10:02:01 lipid panel, serum 2022 023 rubén [facility], [address], [address], [place], [address], 05/19/2024 10:02:12 lipid panel, serum 2017 018 YESSI [facility], [address], [address], [place], [address], 03/27/2018 13:16:39 TSH + free T4, serum 2017 018 [facility], [address], [address], [place], [address], 03/27/2018 13:16:40 T3, free, serum or plasma 2017 018 [facility], [address], [address], [place], [address], 03/27/2018 13:16:28 CMP, serum or plasma 2017 018 Y[facility]I [facility], [address], [address], [place], [address], 07/05/2018 11:29:32 lipid panel, serum 2016 017 [place] [id number] [facility], [address] [facility], [address], [place], [address], 09/12/2016 13:33:11 CMP, serum or plasma 2016 017 [place] [id number] [facility], [address] [place] [address], [address], [place], [address], 09/12/2016 13:33:11 TSH + free T4, serum 2016 017 [place] [id number] [facility], [address] [facility], [address], [place], [address], 09/12/2016 13:33:11 Referral dermato logist referra l 2024 025 [facility], [address] [place], [address], 05/03/2025 18:05:23 pulmono logist referra l 2024 025 [facility], [address] [place], [address], 01/21/2025 12:38:01 diabeti c nutriti on educati on referra l [address] [facility], [address] [place], [address], 11/04/2023 22:56:02 Procedures None recorde d. Surgeries None recorde d. Imaging MRI, foot, w/o contras t 2016 017 [facility] [address] [place], [address], 03/22/2017 14:56:35 US, thyroid 2016 017 [facility] ([facility]), [address], [place], [address], 03/23/2017 05:17:46 Medication Orders aspirin 81 mg chewabl e tablet 2024 025 [facility] #39358, [address], [place], [place], [id number], 01/20/2025 16:38:16 metform in 500 mg tablet 2024 025 [facility] #31110, [address], [place], [place], [id number], 01/20/2025 16:38:22 valacyc lovir 1 gram tablet 2024 025 [facility] #28042, [address], [place], [place], [id number], 01/20/2025 16:38:17 pantopr azole 40 mg tablet, delayed release 2024 025 [facility] #18424, [address], [place], [place], [id number], 01/20/2025 16:38:21 atorvas tatin 80 mg tablet 2024 025 [facility] #75233, [address], [place], [place], [id number], 01/20/2025 16:38:17 metopro lol tartrat e 50 mg tablet 2024 025 [facility] #89779, [address], [place], [place], [id number], 02/04/2025 09:50:24 losarta n 25 mg tablet 2024 025 [facility] #82259, [address], [place], [place], [id number], 01/20/2025 16:38:16 Farxiga 10 mg tablet [address] [facility]23000, [address] [place], [id number], 01/20/2025 16:18:37 metform in 500 mg tablet [address] [facility] #53409, [address], [id number], 01/20/2025 16:31:23 metopro lol tartrat e 50 mg tablet 2017 018 [address], [address] [place], [address], 05/28/2023 14:39:39 tramado l 50 mg tablet [address]/Pharmacy #74828, [address] [place], [address], 01/20/2025 16:26:46 fenofib rate 54 mg tablet [address]/Pharmacy #33421, [address], [place], [address], 05/28/2023 14:34:20 metopro lol tartrat e 50 mg tablet [address]/Pharmacy #[id number], [address] [place], [address], 05/28/2023 14:39:39 Patient TargetsNo targets recorded. Patient Instructions Encounter Date Encounter Id Patient Instructions Last Modified By Organization Details Last Modified Time 05/28/2023 [id number] learning about t ype 2 diabetes [email or web address] Not available 05/28/2023 14:59:41 type 2 diabetes: care instructions [email or web address] Not available 05/28/2023 14:59:41 learning about h igh blood pressure [email or web address] Not available 05/28/2023 14:59:42 high cholesterol : care instructions [email or web address] Not available 05/28/2023 14:59:42 01/20/2025 [id number] learning about t ype 2 diabetes [email or web address] Not available 01/20/2025 16:38:10 type 2 diabetes: care instructions Not available 01/20/2025 16:38:10 gastroesophageal reflux disease (GERD): care instructions Not available 01/20/2025 16:38:09 high cholesterol : care instructions [email or web address] Not available 01/20/2025 16:38:10 learning about h igh blood pressure [email or web address] Not available 01/20/2025 16:38:10 learning about m ood disorders [email or web address] Not available 01/20/2025 16:38:10 Reason for Referral Diabetic Nutrition Education Referral for Type 2 diabetes mellitus New onset DM Referring Physician: Duglas Campbell, Internal Medicine, Encounter Date: 05/28/2023 Snipper Referral for B utterfly rash Persistent malar rash Referring Physician: Duglas Campbell Internal Medicine, Encounter Date: 01/20/2025 Life Skills Specialist Referral for F inding related to sleep ELINOR symptoms Referring Physician: Duglas Campbell Internal Medicine, Encounter Date: 01/20/2025 Results Created Date Observation Date Name Description Value Unit Range Abnormal Flag Note LastModifiedBy Organization Detail LastModifiedTime 05/28/20 23 05/28/2023 HbA1c (hemo globi n A1c), blood HbA1c 7.2 Not Available In-Office Order Internal Use Only DO Not Attach Compendium DO Not Attach Compendium, Do Not Delete/merge, [id number] 05/28/2023 14:44:43 10/21/19 24 10/21/2023 Compr ehens rachid metab olic 2000 panel - Serum or Plasm a sodium [moles/volum e] in serum or plasma 143 mmol/ L low: 136mmo l/Lhig h: 145mmo l/L SODMarceU M 143 136 - 145 mmol/ L 10/20 1:06 AM [facility] Not Available Not Available 10/06/2024 03:38:53 10/21/19 24 10/21/2023 Compr ehens rachid metab olic 1999 panel - Serum or Plasm a potassium [moles/volum e] in serum or plasma 3.5 mmol/ L low: 3.5mmo l/Lhig h: 5mmol/ L POTAS SIUM 3.5 3.5 - 5.0 mmol/ L 10/20 1:06 AM T [facility] Not Available Not Available 10/06/2024 03:38:53 10/21/19 24 10/21/2023 Compr ehens rachid metab olic 1999 panel - Serum or Plasm a chloride 103 mmol/ L low: 98mmol /Lhigh : 107mmo l/L CHLOR KALINA 103 98 - 107 mmol/ L 10/20 1:06 AM [facility] Not Available Not Available 10/06/2024 03:38:53 10/21/19 24 10/21/2023 Compr ehens rachid metab olic 1999 panel - Serum or Plasm a carbon dioxide, total [moles/volum e] in serum or plasma 26 mmol/ L low: 22mmol /Lhigh : 29mmol /L CO2 26 22 - 29 mmol/ L 10/20 1:06 AM [facility] Not Available Not Available 10/06/2024 03:38:53 10/21/19 24 10/21/2023 Compr ehens rachid metab olic 1999 panel - Serum or Plasm a calcium 9.6 mg/dL low: 8.6mg/ dLhigh : 10.2mg /dL CALCI UM 9.6 8.6 - 10.2 mg/dL 10/20 1:06 AM [facility] Not Available Not Available 10/06/2024 03:38:53 10/21/19 24 10/21/2023 Compr ehens rachid metab olic 1999 panel - Serum or Plasm a BUN 9 mg/dL low: 6mg/dL high: 20mg/d L BUN 9 6 - 20 mg/dL 10/20 1:06 AM T [employer] [facility] Not Available Not Available 10/06/2024 03:38:53 10/21/19 24 10/21/2023 Compr ehens rachid metab olic 1999 panel - Serum or Plasm a creatinine [mass/volume ] in serum or plasma 0.99 mg/dL low: 0.67mg /dLhig h: 1.17mg /dL CREAT ININE 0.99 0.67 - 1.17 mg/dL 10/20 1:06 AM [facility] [employer] [facility] Not Available Not Available 10/06/2024 03:38:53 10/21/19 24 10/21/2023 Compr ehens rachid metab olic 1999 panel - Serum or Plasm a glucose [mass/volume ] in serum or plasma 105 mg/dL low: 74mg/d Lhigh: 99mg/d L high GLUCO SE 105 (H) 74 - 99 mg/dL 10/20 1:06 AM [facility] Not Available Not Available 10/06/2024 03:38:53 10/21/19 24 10/21/2023 Compr ehens rachid metab olic 1999 panel - Serum or Plasm a total protein 7.4 g/dL low: 6.7g/d Lhigh: 8.6g/d L TOTAL PROTE IN 7.4 6.7 - 8.6 g/dL 10/20 1:06 AM [facility] Not Available Not Available 10/06/2024 03:38:53 10/21/19 24 10/21/2023 Compr ehens rachid metab olic 2000 panel - Serum or Plasm a albumin 4.5 g/dL low: 3.5g/d Lhigh: 5.2g/d L ALBUM IN 4.5 3.5 - 5.2 g/dL 10/20 1:06 AM CDT [facility] Not Available Not Available 10/06/2024 03:38:53 10/21/19 24 10/21/2023 Compr ehens rachid metab olic 1999 panel - Serum or Plasm a bilirubin total 0.4 mg/dL low: 0.3mg/ dLhigh : 1.2mg/ dL BILIR UBIN TOTAL 0.4 0.3 - 1.2 mg/dL 10/20 1:06 AM T [facility] Not Available Not Available 10/06/2024 03:38:53 10/21/19 24 10/21/2023 Compr ehens rachid metab olic 1999 panel - Serum or Plasm a alkaline phosphatase 67 U/L low: 40U/Lh igh: 129U/L ALKAL INE PHOSP HATAS E 67 40 - 129 U/L 10/20 1:06 AM [facility] Not Available Not Available 10/06/2024 03:38:53 10/21/19 24 10/21/2023 Compr ehens rachid metab olic 1999 panel - Serum or Plasm a AST 30 U/L high: 41U/L AST 30 <41 U/L 10/20 1:06 AM [facility] Not Available Not Available 10/06/2024 03:38:53 10/21/19 24 10/21/2023 Compr ehens rachid metab olic 1999 panel - Serum or Plasm a alanine aminotransfe rase [enzymatic activity/vol ume] in blood 29 U/L high: 42U/L ALT 29 <42 U/L 10/20 1:06 AM [facility] Not Available Not Available 10/06/2024 03:38:53 10/21/19 24 10/21/2023 Compr ehens rachid metab olic 1999 panel - Serum or Plasm a glomerular filtration rate/1.73 sq M.predicted [volume rate/area] in serum, plasma or blood by creatinine-b ased formula (CKD-epi 2020) text: >=60 mL/min /1.73 sq meter GFR >60 >=60 mL/mi n/1.7 3 sq meter 10/20 1:06 AM [facility] Not [facility] Not Available 10/06/2024 03:38:53 10/21/19 24 10/21/2023 Compr ehens rachid metab olic 1999 panel - Serum or Plasm a anion gap 14 mmol/ L low: 8mmol/ Lhigh: 16mmol /L ANION GAP 14 8 - 16 mmol/ L 10/20 1:06 AM CDT [employer] [facility] Not Available Not Available 10/06/2024 03:38:53 10/21/19 [...] 4.0 - 9.8 K/uL 10/20 12:43 AM T [email or web address] [facility] Not Available Not Available 10/06/2024 03:38:52 10/21/19 24 10/21/2023 CBC W Auto Diffe renti al panel - Blood RBC 4.43 text: 4.50 - 5.40 M/uL low RBC 4.43 (L) 4.50 - 5.40 M/uL 10/20 12:43 AM [facility] Not Available Not Available 10/06/2024 03:38:52 10/21/19 24 10/21/2023 CBC W Auto Diffe renti al panel - Blood hemoglobin 13.7 g/dL low: 13.6g/ dLhigh : 16.5g/ dL HEMOG LOBIN 13.7 13.6 - 16.5 g/dL 10/20 12:43 AM T [facility] Not Available Not Available 10/06/2024 03:38:52 10/21/19 24 10/21/2023 CBC W Auto Diffe renti al panel - Blood hematocrit [volume fraction] of blood by automated count 40.9 % low: 40%hig h: 48% HEMAT OCRIT 40.9 40.0 - 48.0 % 10/20 12:43 AM T [facility] Not Available Not Available 10/06/2024 03:38:52 10/21/19 24 10/21/2023 CBC W Auto Diffe renti al panel - Blood MCV 92.3 fL low: 82fLhi gh: 99fL MCV 92.3 82.0 - 99.0 fL 10/20 12:43 AM [facility] Not Available Not Available 10/06/2024 03:38:52 10/21/19 24 10/21/2023 CBC W Auto Diffe renti al panel - Blood MCH 30.9 pg low: 27.2pg high: 32.6pg MCH 30.9 27.2 - 32.6 pg 10/20 12:43 AM [facility] Not Available Not Available 10/06/2024 03:38:52 10/21/19 24 10/21/2023 CBC W Auto Diffe renti al panel - Blood MCHC 33.5 g/dL low: 31.5g/ dLhigh : 35.5g/ dL MCHC 33.5 31.5 - 35.5 g/dL 10/20 12:43 AM [facility] Not Available Not Available 10/06/2024 03:38:52 03/11/20 24 10/21/2023 CBC W Auto Diffe renti al panel - Blood RDW 12.9 % low: 11.5%h igh: 14.5% RDW 12.9 11.5 - 14.5 % 10/20 12:43 AM CDT [facility] Not Available Not Available 10/06/2024 03:38:52 10/21/19 24 10/21/2023 CBC W Auto Diffe renti al panel - Blood RDW-stdev 43.1 fL low: 37.1fL high: 48.7fL RDW-S TDEV 43.1 37.1 - 48.7 fL 10/20 12:43 AM CDT [facility] Not Available Not Available 10/06/2024 03:38:52 10/21/19 24 10/21/2023 CBC W Auto Diffe renti al panel - Blood platelets [#/volume] in blood by automated count 146 K/uL low: 140K/u Lhigh: 350K/u L PLATE LETS 146 140 - 350 K/uL 10/20 12:43 AM CDT [facility] Not Available Not Available 10/06/2024 03:38:52 10/21/19 24 10/21/2023 CBC W Auto Diffe renti al panel - Blood MPV 8.5 fL low: 9.3fLh igh: 12.4fL low MPV 8.5 (L) 9.3 - 12.4 fL 10/20 12:43 AM T [facility] Not Available Not Available 10/06/2024 03:38:52 10/21/19 24 10/21/2023 CBC W Auto Diffe renti al panel - Blood neutrophils 67 % NEUTR OPHIL S 67 % 10/20 12:43 AM [facility] Not Available Not Available 10/06/2024 03:38:52 10/21/19 24 10/21/2023 CBC W Auto Diffe renti al panel - Blood lymphocytes/ 100 leukocytes in blood by automated count 22 % LYMPH OCYTE S 22 % 10/20 12:43 AM CDT [facility] Not Available Not Available 10/06/2024 03:38:52 10/21/19 24 10/21/2023 CBC W Auto Diffe renti al panel - Blood monocytes 5 % MONOC YTES 5 % 10/20 12:43 AM [facility] Not Available Not Available 10/06/2024 03:38:52 10/21/19 24 10/21/2023 CBC W Auto Diffe renti al panel - Blood eosinophils 4 % EOSIN OPHIL S 4 % 10/20 12:43 AM [facility] Not Available Not Available 10/06/2024 03:38:52 10/21/19 24 10/21/2023 CBC W Auto Diffe renti al panel - Blood basophils 1 % BASOP HILS 1 % 10/20 12:43 AM [facility] Not Available Not Available 10/06/2024 03:38:52 10/21/19 24 10/21/2023 CBC W Auto Diffe renti al panel - Blood immature granulocytes 1 % IMMAT URE GRANU LOCYT ES 1 % 10/20 12:43 AM [facility] Not Available Not Available 10/06/2024 03:38:52 10/21/19 24 10/21/2023 CBC W Auto Diffe renti al panel - Blood neutrophils [#/volume] in blood by automated count 4.21 K/uL low: 1.9K/u Lhigh: 7K/uL NEUTR OPHIL ABSOL IQUGMIUT 4.21 1.90 - 7.00 K/uL 10/20 12:43 AM T [facility] Not Available Not Available 10/06/2024 03:38:52 10/21/19 24 10/21/2023 CBC W Auto Diffe renti al panel - Blood lymphocyte absolute 1.4 K/uL low: 0.7K/u Lhigh: 4.5K/u L LYMPH OCYTE ABSOL IQUGMIUT 1.40 0.70 - 4.50 K/uL 10/20 12:43 AM CDT [facility] Not Available Not Available 10/06/2024 03:38:52 10/21/19 24 10/21/2023 CBC W Auto Diffe renti al panel - Blood monocyte absolute 0.34 K/uL low: 0.1K/u Lhigh: 1.3K/u L MONOC YTE ABSOL IQUGMIUT 0.34 0.10 - 1.30 K/uL 10/20 12:43 AM CDT [facility] Not Available Not Available 10/06/2024 03:38:52 10/21/19 24 10/21/2023 CBC W Auto Diffe renti al panel - Blood eosinophil absolute 0.27 K/uL low: 0K/uLh igh: 0.7K/u L EOSIN OPHIL ABSOL IQUGMIUT 0.27 0.00 - 0.70 K/uL 10/20 12:43 AM CDT [facility] Not Available Not Available 10/06/2024 03:38:52 10/21/19 24 10/21/2023 CBC W Auto Diffe renti al panel - Blood basophils absolute 0.04 K/uL low: 0K/uLh igh: 0.2K/u L BASOP HILS ABSOL IQUGMIUT 0.04 0.00 - 0.20 K/uL 10/20 12:43 AM T [facility] Not Available Not Available 10/06/2024 03:38:52 10/21/19 24 10/21/2023 CBC W Auto Diffe renti al panel - Blood immature granulocytes absolute 0.07 K/uL low: 0K/uLh igh: 0.03K/ uL high IMMAT URE GRANU LOCYT ES ABSOL IQUGMIUT 0.07 (H) 0.00 - 0.03 K/uL 10/20 12:43 AM [facility] Not Available Not Available 10/06/2024 03:38:52 10/21/19 24 10/21/2023 CBC W Auto Diffe renti al panel - Blood interpretati on and review of laboratory results Abnorm al Not Available Not Available 03:38:52 10/22/19 24 10/22/2023 Basic metab olic 1999 panel - Serum or Plasm a sodium [moles/volum e] in serum or plasma 142 mmol/ L low: 136mmo l/Lhig h: 145mmo l/L SODIU M 142 136 - 145 mmol/ L 10/21 6:59 AM [facility] Not Available Not Available 10/06/2024 03:38:53 10/22/19 24 10/22/2023 Basic metab olic 1999 panel - Serum or Plasm a potassium [moles/volum e] in serum or plasma 3.9 mmol/ L low: 3.5mmo l/Lhig h: 5mmol/ L POTAS SIUM 3.9 3.5 - 5.0 mmol/ L 10/21 6:59 AM [facility] Not Available Not Available 10/06/2024 03:38:53 10/22/19 24 10/22/2023 Basic metab olic 1999 panel - Serum or Plasm a chloride 107 mmol/ L low: 98mmol /Lhigh : 107mmo l/L CHLOR KALINA 107 98 - 107 mmol/ L 10/21 6:59 AM [facility] Not Available Not Available 10/06/2024 03:38:53 10/22/19 24 10/22/2023 Basic metab olic 1999 panel - Serum or Plasm a carbon dioxide, total [moles/volum e] in serum or plasma 27 mmol/ L low: 22mmol /Lhigh : 29mmol /L CO2 27 22 - 29 mmol/ L 10/21 6:59 AM [facility] Not Available Not Available 10/06/2024 03:38:53 10/22/19 24 10/22/2023 Basic metab olic 1999 panel - Serum or Plasm a calcium 8.9 mg/dL low: 8.6mg/ dLhigh : 10.2mg /dL CALCI UM 8.9 8.6 - 10.2 mg/dL 10/21 6:59 AM T [facility] Not Available Not Available 10/06/2024 03:38:53 10/22/19 24 10/22/2023 Basic metab olic 2000 panel - Serum or Plasm a BUN 10 mg/dL low: 6mg/dL high: 20mg/d L BUN 10 6 - 20 mg/dL 10/21 6:59 AM [facility] Not Available Not Available 10/06/2024 03:38:53 10/22/19 24 10/22/2023 Basic metab olic 1999 panel - Serum or Plasm a creatinine [mass/volume ] in serum or plasma 1.15 mg/dL low: 0.67mg /dLhig h: 1.17mg /dL CREAT ININE 1.15 0.67 - 1.17 mg/dL 10/21 6:59 AM [facility] Not Available Not Available 10/06/2024 03:38:53 10/22/19 24 10/22/2023 Basic metab olic 2000 panel - Serum or Plasm a glucose [mass/volume ] in serum or plasma 88 mg/dL low: 74mg/d Lhigh: 99mg/d L GLUCO SE 88 74 - 99 mg/dL 10/21 6:59 AM [facility] Not Available Not Available 10/06/2024 03:38:53 10/22/1910/22/2023 Basic metab olic 2000 panel - Serum or Plasm a glomerular filtration rate/1.73 sq M.predicted [volume rate/area] in serum, plasma or blood by creatinine-b ased formula (CKD-epi 2020) text: >=60 mL/min /1.73 sq meter GFR >60 >=60 mL/mi n/1.7 3 sq meter 10/21 6:59 AM [facility] Not Available Not Available 10/06/2024 03:38:53 10/22/19 24 10/22/2023 Basic metab olic 2000 panel - Serum or Plasm a anion gap 8 mmol/ L low: 8mmol/ Lhigh: 16mmol /L ANION GAP 8 8 - 16 mmol/ L 10/21 6:59 AM [facility] Not [facility] Not Available 10/06/2024 03:38:53 [...] 4.0 - 9.8 K/uL 10/21 6:44 AM T [facility] Not Available Not Available 10/06/2024 03:38:53 10/22/19 24 10/22/2023 CBC W Auto Diffe renti al panel - Blood RBC 4.16 text: 4.50 - 5.40 M/uL low RBC 4.16 (L) 4.50 - 5.40 M/uL 10/21 6:44 AM [facility] Not Available Not Available 10/06/2024 03:38:53 10/22/19 24 10/22/2023 CBC W Auto Diffe renti al panel - Blood hemoglobin 12.9 g/dL low: 13.6g/ dLhigh : 16.5g/ dL low HEMOG LOBIN 12.9 (L) 13.6 - 16.5 g/dL 10/21 6:44 AM [facility] Not Available Not Available 10/06/2024 03:38:53 10/22/19 24 10/22/2023 CBC W Auto Diffe renti al panel - Blood hematocrit [volume fraction] of blood by automated count 37.6 % low: 40%hig h: 48% low HEMAT OCRIT 37.6 (L) 40.0 - 48.0 % 10/21 6:44 AM CDT [facility] Not Available Not Available 10/06/2024 03:38:53 10/22/19 24 10/22/2023 CBC W Auto Diffe renti al panel - Blood MCV 90.4 fL low: 82fLhi gh: 99fL MCV 90.4 82.0 - 99.0 fL 10/21 6:44 AM CDT [facility] Not Available Not Available 10/06/2024 03:38:53 10/22/19 24 10/22/2023 CBC W Auto Diffe renti al panel - Blood MCH 31 pg low: 27.2pg high: 32.6pg MCH 31.0 27.2 - 32.6 pg 10/21 6:44 AM CDT [facility] Not Available Not Available 10/06/2024 03:38:53 10/22/19 24 10/22/2023 CBC W Auto Diffe renti al panel - Blood MCHC 34.3 g/dL low: 31.5g/ dLhigh : 35.5g/ dL MCHC 34.3 31.5 - 35.5 g/dL 10/21 6:44 AM CDT [facility] Not Available Not Available 10/06/2024 03:38:53 10/22/19 24 10/22/2023 CBC W Auto Diffe renti al panel - Blood RDW 12.9 % low: 11.5%h igh: 14.5% RDW 12.9 11.5 - 14.5 % 10/21 6:44 AM CDT [facility] Not Available Not Available 10/06/2024 03:38:53 10/22/19 24 10/22/2023 CBC W Auto Diffe renti al panel - Blood RDW-stdev 42 fL low: 37.1fL high: 48.7fL RDW-S TDEV 42.0 37.1 - 48.7 fL 10/21 6:44 AM CDT [facility] Not Available Not Available 10/06/2024 03:38:53 10/22/19 24 10/22/2023 CBC W Auto Diffe renti al panel - Blood platelets [#/volume] in blood by automated count 125 K/uL low: 140K/u Lhigh: 350K/u L low PLATE LETS 125 (L) 140 - 350 K/uL 10/21 6:44 AM [facility] Not Available Not Available 10/06/2024 03:38:53 10/22/19 24 10/22/2023 CBC W Auto Diffe renti al panel - Blood MPV 8.6 fL low: 9.3fLh igh: 12.4fL low MPV 8.6 (L) 9.3 - 12.4 fL 10/21 6:44 AM [facility] Not Available Not Available 10/06/2024 03:38:53 10/22/19 24 10/22/2023 CBC W Auto Diffe renti al panel - Blood neutrophils 50 % NEUTR OPHIL S 50 % 10/21 6:44 AM [facility] Not Available Not Available 10/06/2024 03:38:53 10/22/19 24 10/22/2023 CBC W Auto Diffe renti al panel - Blood lymphocytes/ 100 leukocytes in blood by automated count 33 % LYMPH OCYTE S 33 % 10/21 6:44 AM [facility] Not Available Not Available 10/06/2024 03:38:53 10/22/19 24 10/22/2023 CBC W Auto Diffe renti al panel - Blood monocytes 8 % MONOC YTES 8 % 10/21 6:44 AM [facility] Not Available Not Available 10/06/2024 03:38:53 10/22/19 24 10/22/2023 CBC W Auto Diffe renti al panel - Blood eosinophils 9 % EOSIN OPHIL S 9 % 10/21 6:44 AM [facility] Not Available Not Available 10/06/2024 03:38:53 10/22/19 24 10/22/2023 CBC W Auto Diffe renti al panel - Blood basophils 1 % BASOP HILS 1 % 10/21 6:44 AM [facility] Not Available Not Available 10/06/2024 03:38:53 10/22/19 24 10/22/2023 CBC W Auto Diffe renti al panel - Blood immature granulocytes 0 % IMMAT URE GRANU LOCYT ES 0 % 10/21 6:44 AM [facility] Not Available Not Available 10/06/2024 03:38:53 10/22/19 24 10/22/2023 CBC W Auto Diffe renti al panel - Blood neutrophils [#/volume] in blood by automated count 2.55 K/uL low: 1.9K/u Lhigh: 7K/uL NEUTR OPHIL ABSOL IQUGMIUT 2.55 1.90 - 7.00 K/uL 10/21 6:44 AM [facility] Not Available Not Available 10/06/2024 03:38:53 10/22/19 24 10/22/2023 CBC W Auto Diffe renti al panel - Blood lymphocyte absolute 1.69 K/uL low: 0.7K/u Lhigh: 4.5K/u L LYMPH OCYTE ABSOL IQUGMIUT 1.69 0.70 - 4.50 K/uL 10/21 6:44 AM CDT [facility] Not Available Not Available 10/06/2024 03:38:53 10/22/19 24 10/22/2023 CBC W Auto Diffe renti al panel - Blood monocyte absolute 0.39 K/uL low: 0.1K/u Lhigh: 1.3K/u L MONOC YTE ABSOL IQUGMIUT 0.39 0.10 - 1.30 K/uL 10/21 6:44 AM CDT [facility] Not Available Not Available 10/06/2024 03:38:53 10/22/19 24 10/22/2023 CBC W Auto Diffe renti al panel - Blood eosinophil absolute 0.45 K/uL low: 0K/uLh igh: 0.7K/u L EOSIN OPHIL ABSOL IQUGMIUT 0.45 0.00 - 0.70 K/uL 10/21 6:44 AM CDT [facility] Not Available Not Available 10/06/2024 03:38:53 10/22/19 24 10/22/2023 CBC W Auto Diffe renti al panel - Blood basophils absolute 0.04 K/uL low: 0K/uLh igh: 0.2K/u L BASOP HILS ABSOL IQUGMIUT 0.04 0.00 - 0.20 K/uL 10/21 6:44 AM CDT [facility] Not Available Not Available 10/06/2024 03:38:53 10/22/19 24 10/22/2023 CBC W Auto Diffe renti al panel - Blood immature granulocytes absolute 0.02 K/uL low: 0K/uLh igh: 0.03K/ uL IMMAT URE GRANU LOCYT ES ABSOL IQUGMIUT 0.02 0.00 - 0.03 K/uL 10/21 6:44 AM T [facility] Not Available Not Available 10/06/2024 [...] - 145 mmol/ L 10/22 6:27 AM [facility] Not Available Not Available 10/06/2024 03:38:53 10/23/19 24 10/23/2023 Basic metab olic 1999 panel - Serum or Plasm a potassium [moles/volum e] in serum or plasma 3.5 mmol/ L low: 3.5mmo l/Lhig h: 5mmol/ L POTAS SIUM 3.5 3.5 - 5.0 mmol/ L 10/22 6:27 AM [facility] Not Available Not Available 10/06/2024 03:38:53 10/23/19 24 10/23/2023 Basic metab olic 2000 panel - Serum or Plasm a chloride 107 mmol/ L low: 98mmol /Lhigh : 107mmo l/L CHLOR KALINA 107 98 - 107 mmol/ L 10/22 6:27 AM [facility] Not Available Not Available 10/06/2024 03:38:53 10/23/19 24 10/23/2023 Basic metab olic 1999 panel - Serum or Plasm a carbon dioxide, total [moles/volum e] in serum or plasma 24 mmol/ L low: 22mmol /Lhigh : 29mmol /L CO2 24 22 - 29 mmol/ L 10/22 6:27 AM [facility] Not Available Not Available 10/06/2024 03:38:53 10/23/19 24 10/23/2023 Basic metab olic 2000 panel - Serum or Plasm a calcium 9.4 mg/dL low: 8.6mg/ dLhigh : 10.2mg /dL CALCI UM 9.4 8.6 - 10.2 mg/dL 10/22 6:27 AM [facility] Not Available Not Available 10/06/2024 03:38:53 10/23/19 24 10/23/2023 Basic metab olic 2000 panel - Serum or Plasm a BUN 11 mg/dL low: 6mg/dL high: 20mg/d L BUN 11 6 - 20 mg/dL 10/22 6:27 AM [facility] Not Available Not Available 10/06/2024 03:38:53 10/23/19 24 10/23/2023 Basic metab olic 2000 panel - Serum or Plasm a creatinine [mass/volume ] in serum or plasma 0.94 mg/dL low: 0.67mg /dLhig h: 1.17mg /dL CREAT ININE 0.94 0.67 - 1.17 mg/dL 10/22 6:27 AM [facility] Not Available Not Available 10/06/2024 03:38:53 10/23/19 24 10/23/2023 Basic metab olic 2000 panel - Serum or Plasm a glucose [mass/volume ] in serum or plasma 76 mg/dL low: 74mg/d Lhigh: 99mg/d L GLUCO SE 76 74 - 99 mg/dL 10/22 6:27 AM [facility] Not Available Not Available 10/06/2024 03:38:53 10/23/19 24 10/23/2023 Basic metab olic 2000 panel - Serum or Plasm a glomerular filtration rate/1.73 sq M.predicted [volume rate/area] in serum, plasma or blood by creatinine-b ased formula (CKD-epi 2020) text: >=60 mL/min /1.73 sq meter GFR >60 >=60 mL/mi n/1.7 3 sq meter 10/22 6:27 AM [facility] Not Available Not Available 10/06/2024 03:38:53 10/23/1910/23/2023 Basic metab olic 2000 panel - Serum or Plasm a anion gap 10 mmol/ L low: 8mmol/ Lhigh: 16mmol /L ANION GAP 10 8 - 16 mmol/ L 10/22 6:27 AM [facility] Not Available Not Available 10/06/2024 [...] 4.0 - 9.8 K/uL 10/22 5:47 AM [facility] Not Available Not Available 10/06/2024 03:38:53 10/23/19 24 10/23/2023 CBC W Auto Diffe renti al panel - Blood RBC 4.13 text: 4.50 - 5.40 M/uL low RBC 4.13 (L) 4.50 - 5.40 M/uL 10/22 5:47 AM CDT [facility] Not Available Not Available 10/06/2024 03:38:53 10/23/19 24 10/23/2023 CBC W Auto Diffe renti al panel - Blood hemoglobin 12.8 g/dL low: 13.6g/ dLhigh : 16.5g/ dL low HEMOG LOBIN 12.8 (L) 13.6 - 16.5 g/dL 10/22 5:47 AM CDT [facility] Not Available Not Available 10/06/2024 03:38:53 10/23/19 24 10/23/2023 CBC W Auto Diffe renti al panel - Blood hematocrit [volume fraction] of blood by automated count 36.9 % low: 40%hig h: 48% low HEMAT OCRIT 36.9 (L) 40.0 - 48.0 % 10/22 5:47 AM CDT [facility] Not Available Not Available 10/06/2024 03:38:53 10/23/19 24 10/23/2023 CBC W Auto Diffe renti al panel - Blood MCV 89.3 fL low: 82fLhi gh: 99fL MCV 89.3 82.0 - 99.0 fL 10/22 5:47 AM CDT [facility] Not Available Not Available 10/06/2024 03:38:53 10/23/19 24 10/23/2023 CBC W Auto Diffe renti al panel - Blood MCH 31 pg low: 27.2pg high: 32.6pg MCH 31.0 27.2 - 32.6 pg 10/22 5:47 AM CDT [facility] Not Available Not Available 10/06/2024 03:38:53 10/23/19 24 10/23/2023 CBC W Auto Diffe renti al panel - Blood MCHC 34.7 g/dL low: 31.5g/ dLhigh : 35.5g/ dL MCHC 34.7 31.5 - 35.5 g/dL 10/22 5:47 AM CDT [facility] Not Available Not Available 10/06/2024 03:38:53 10/23/19 24 10/23/2023 CBC W Auto Diffe renti al panel - Blood RDW 12.9 % low: 11.5%h igh: 14.5% RDW 12.9 11.5 - 14.5 % 10/22 5:47 AM CDT [facility] Not Available Not Available 10/06/2024 03:38:53 10/23/19 24 10/23/2023 CBC W Auto Diffe renti al panel - Blood RDW-stdev 41.6 fL low: 37.1fL high: 48.7fL RDW-S TDEV 41.6 37.1 - 48.7 fL 10/22 5:47 AM CDT [facility] Not Available Not Available 10/06/2024 03:38:53 10/23/19 24 10/23/2023 CBC W Auto Diffe renti al panel - Blood platelets [#/volume] in blood by automated count 113 K/uL low: 140K/u Lhigh: 350K/u L low PLATE LETS 113 (L) 140 - 350 K/uL 10/22 5:47 AM CDT [facility] Not Available Not Available 10/06/2024 03:38:53 10/23/19 24 10/23/2023 CBC W Auto Diffe renti al panel - Blood MPV 8.8 fL low: 9.3fLh igh: 12.4fL low MPV 8.8 (L) 9.3 - 12.4 fL 10/22 5:47 AM CDT [facility] Not Available Not Available 10/06/2024 03:38:53 10/23/19 24 10/23/2023 CBC W Auto Diffe renti al panel - Blood neutrophils 51 % NEUTR OPHIL S 51 % 10/22 5:47 AM CDT [facility] Not Available Not Available 10/06/2024 03:38:53 10/23/19 24 10/23/2023 CBC W Auto Diffe renti al panel - Blood lymphocytes/ 100 leukocytes in blood by automated count 35 % LYMPH OCYTE S 35 % 10/22 5:47 AM CDT [facility] Not Available Not Available 10/06/2024 03:38:53 10/23/19 24 10/23/2023 CBC W Auto Diffe renti al panel - Blood monocytes 7 % MONOC YTES 7 % 10/22 5:47 AM CDT [facility] Not Available Not Available 10/06/2024 03:38:53 10/23/19 24 10/23/2023 CBC W Auto Diffe renti al panel - Blood eosinophils 6 % EOSIN OPHIL S 6 % 10/22 5:47 AM CDT [facility] Not Available Not Available 10/06/2024 03:38:53 10/23/19 24 10/23/2023 CBC W Auto Diffe renti al panel - Blood basophils 1 % BASOP HILS 1 % 10/22 5:47 AM CDT [facility] Not Available Not Available 10/06/2024 03:38:53 10/23/19 24 10/23/2023 CBC W Auto Diffe renti al panel - Blood immature granulocytes 1 % IMMAT URE GRANU LOCYT ES 1 % 10/22 5:47 AM CDT [facility] Not Available Not Available 10/06/2024 03:38:53 10/23/19 24 10/23/2023 CBC W Auto Diffe renti al panel - Blood neutrophils [#/volume] in blood by automated count 2.91 K/uL low: 1.9K/u Lhigh: 7K/uL NEUTR OPHIL ABSOL IQUGMIUT 2.91 1.90 - 7.00 K/uL 10/22 5:47 AM CDT [facility] Not Available Not Available 10/06/2024 03:38:53 10/23/19 24 10/23/2023 CBC W Auto Diffe renti al panel - Blood lymphocyte absolute 1.97 K/uL low: 0.7K/u Lhigh: 4.5K/u L LYMPH OCYTE ABSOL IQUGMIUT 1.97 0.70 - 4.50 K/uL 10/22 5:47 AM CDT [facility] Not Available Not Available 10/06/2024 03:38:53 10/23/19 24 10/23/2023 CBC W Auto Diffe renti al panel - Blood monocyte absolute 0.39 K/uL low: 0.1K/u Lhigh: 1.3K/u L MONOC YTE ABSOL IQUGMIUT 0.39 0.10 - 1.30 K/uL 10/22 5:47 AM CDT [facility] Not Available Not Available 10/06/2024 03:38:53 10/23/19 24 10/23/2023 CBC W Auto Diffe renti al panel - Blood eosinophil absolute 0.35 K/uL low: 0K/uLh igh: 0.7K/u L EOSIN OPHIL ABSOL IQUGMIUT 0.35 0.00 - 0.70 K/uL 10/22 5:47 AM T [facility] Not Available Not Available 10/06/2024 03:38:53 10/23/19 24 10/23/2023 CBC W Auto Diffe renti al panel - Blood basophils absolute 0.04 K/uL low: 0K/uLh igh: 0.2K/u L BASOP HILS ABSOL IQUGMIUT 0.04 0.00 - 0.20 K/uL 10/22 5:47 AM T [facility] Not Available Not Available 10/06/2024 03:38:53 10/23/19 24 10/23/2023 CBC W Auto Diffe renti al panel - Blood immature granulocytes absolute 0.04 K/uL low: 0K/uLh igh: 0.03K/ uL high IMMAT URE GRANU LOCYT ES ABSOL IQUGMIUT 0.04 (H) 0.00 - 0.03 K/uL 10/22 5:47 AM CDT [facility] Not Available Not Available 10/06/2024 03:38:53 10/23/19 24 10/23/2023 CBC W Auto Diffe renti al panel - Blood interpretati on and review of laboratory results Abnorm al Not Available Not Available 03:38:53 01/21/20 25 01/21/2025 ANTIN UCLEA R AB MULTI PLEX RFX 9 SHAUNA direct NEGATI VE negati ve Not Available [facility] ([facility]) [address] [facility], [place], [address], 01/21/2025 11:13:23 01/21/20 25 01/21/2025 SEDIM ENTAT ION RATE- WESTE RGREN sedimentatio n rate-westerg suzy 17 mm/HR 0-15 above high normal Not Available [facility] ([facility]) [address] [facility], [place], [address], 01/21/2025 11:13:24 01/21/20 25 01/21/2025 C-RAYA CTIVE PROTE IN, QUANT C-reactive protein, quant 4 mg/L 0-10 Not Available [facility] ([facility]) [address] [facility], [place], [address], 01/21/2025 11:13:26 01/21/20 25 01/20/2025 HbA1c (hemo globi n A1c), blood HbA1C 7.9 % Not Available In-Office Order Internal Use Only DO Not Attach Compendium DO Not Attach Compendium, Do Not Delete/merge, [id number] 01/20/2025 16:29:35 02/27/20 17 02/26/2017 XR, foot, 3 or more view No observ ation record ed. [email or web address] (Imaging) [address] [place], [address], 03/01/2017 15:19:12 03/22/20 17 03/22/2017 US, thyro id No observ ation record ed. [address] ([employer]) [address] [place], [address], 03/23/2017 05:17:47 03/22/20 17 03/22/2017 MRI, foot, w/o contr ast No observ ation record ed. [address] (Imaging) [address] [place], [address], 03/23/2017 05:13:34 09/16/19 24 09/16/2023 right heart barron teriz ation inclu ding measu remen t(s) of oxyge n satur ation and cardi ac outpu t (PROC ) No observ ation record ed. [address] [facility] [address], [place], [address], 09/16/2023 18:23:48 10/01/19 24 10/01/2023 XR, chest No observ ation record ed. [address] [place], [address], 10/11/2023 09:54:15 10/01/19 24 10/01/2023 CT, angio gram, chest , w/ contr ast No observ ation record ed. [address] [place], [address], 10/11/2023 09:54:44 10/01/19 24 10/01/2023 CT, head, w/o contr ast No observ ation record ed. [address] [place], [address], 10/11/2023 09:54:54 10/02/19 24 10/02/2023 XR, chest , 2 view No observ ation record ed. [address] [place], [address], 10/11/2023 09:55:07 10/02/19 24 10/02/2023 MRI, brain , w/wo contr ast No observ ation record ed. [address] [place], [address], 10/11/2023 09:55:33 10/02/19 24 10/02/2023 MR, angio gram, head, w/o contr ast No observ ation record ed. [address] [place], [address], 10/11/2023 09:56:06 10/04/19 24 10/04/2023 CT, head, w/o contr ast No observ ation record ed. [address] [place], [address], 10/11/2023 09:57:21 11/02/19 24 11/02/2023 XR, shoul galo No observ ation record ed. [address], [address], 11/06/2023 09:47:40 11/02/19 24 11/02/2023 XR, chest , 2 view No observ ation record ed. [address], [address], 11/06/2023 09:47:52 05/13/2005/13/2024 XR, chest , 2 view No observ ation record ed. [address], [address], 05/15/2024 10:00:18 05/14/20 24 05/13/2024 CT, angio gram, chest , w/ contr ast No observ ation record ed. [address], [address], 05/15/2024 10:00:43 08/19/19 25 08/19/2024 XR, chest , 2 view No observ ation record ed. [address] [address], [place], [address], 09/01/2024 12:57:18 08/19/19 25 08/19/2024 CT, angio gram, chest + abdom en + pelvi s, w/ contr ast No observ ation record ed. [address] [address], [place], [address], 09/01/2024 12:57:44 01/02/20 25 01/01/2025 XR, chest , 2 view No observ ation record ed. [address] [address], [place], [address], 01/05/2025 12:01:31 01/02/20 25 01/01/2025 CT, abdom en + pelvi s, w/ contr ast No observ ation record ed. [address] [address], [place], [address], 01/05/2025 12:01:45 Result Notes None recorded. Problems Name Problem SNOMED Code Status Onset Date Resolution Date Notes Provider Name and Address Organization Details Recorded Time [facility] daniel 71546312 Active Duglas Campbell MD Attn: Bo garland,[address] [facility], [place], [address], [facility] - [facility] 6 17:30:17 Recurren t genital herpes simplex 526914954 Active Duglas Campbell MD Attn: Bo garland,[address] [facility], [place], [address], [facility] - [facility] 6 17:51:46 Influenz a-like illness 49849680 Completed 05/28/2023 Duglas Campbell MD Attn: oB garland,[address] [facility], [place], [address], [facility] - [facility] 3 14:49:11 Thyroid stimulat ing hormone level above referenc e range 991680430 Active Duglas Campbell MD Attn: Accountin g,[address] [facility], [place], [address], [place] - [facility] 6 17:30:17 Hypertri glycerid emia 211207728 Completed 05/28/2023 Duglas Campbell MD Attn: Accountin g,[address] [place], [address], [place] [facility] 3 14:48:42 Jaw pain 507737285 Completed 05/28/2023 Duglas Campbell MD Attn: Accountin g,[address] [place], [address], [place] [facility] 3 14:49:30 Pain in right foot [id number] 9107 Completed 201603/27/2018 Removal Reason: resolved Duglas Campbell MD Attn: Accountin g,[address] [place], [address], [place] [facility] 8 13:06:14 Type 2 diabetes mellitus 19184663 Active 2022 Duglas Campbell MD Attn: Accountin g,[address] [place], [address], [place] [facility] 3 14:44:29 Hyperlip idemia 55447413 Active 2022 Duglas Campbell MD Attn: Accountin g,[address] [place], [address], [place] [facility] 3 14:50:32 Screenin g for malignan t neoplasm of prostate Active 2022 Duglas Campbell MD Attn: Accountin g,[address] [place], [address], [place] [facility] 3 14:53:53 Butterfl y rash 24845059 Active 2024 Duglas Campbell MD Attn: Accountin g,[address] [place], [address], [place] [facility] 5 16:14:59 Coronary atherosc lerosis 278443868 Active 2024 Duglas Campbell MD Attn: Bo garland,[address] [facility], [place], [address], [place] [facility] 5 16:21:20 History of placemen t of stent for coronary artery disease 774784272 Active 2024 Right coronary Duglas Campbell MD Attn: Bo garland,[address] [facility], [place], [address], [place] [facility] 5 16:21:59 Gastroes ophageal reflux disease 356220647 Active 2024 Duglas Campbell MD Attn: Bo garland,[address] [facility], [place], [address], [facility] 5 16:32:32 Mood disorder 74951597 Active 2024 Duglas Campbell MD Attn: Bo garland,[address] [facility], [place], [address], [facility] 5 16:36:15 Finding related to sleep 238141611 Active 2024 Duglas Campbell MD Attn: Bo garland,[address] [facility], [place], [address], [facility] 5 16:40:40 Problem Notes Documentation Provider Name and Address Organization Details Recorded Time [facility] Consult Note : This document (1 of 1) was received from [id number] on 10/08/2024 through Direct Message along with the following message body content: Patient Name: ANDREW SULLIVAN. Patient : 1980. Patient . Mellissa Kraft [place], [place] - [facility] 10/13/2024 10:45:46 Procedures Surgical History Date Name Laterality Status Provider Name and Address Organization Details Recorded Time 4 placement of stent in coronary artery completed Berna Parish [facility] 01/20/2025 15:27:45 Imaging Results None recorded. Procedure Notes None recorded. Medical Equipment None Reported. Allergies Allergen ID Allergen Name Allergen Category Reaction Reaction Severity Criticality Documentation Date Start Date Code Code System Note Provider Name and Address Organization Details Recorded Time 90015 Product containin g penicilli n (product) medicatio n Not available Not available Not available 10/13/2015 19220 8001 SNOMED MARY ELLEN Tavares, [facility] 6 16:57:56 Medications Name Sig Start Date Stop Date Status Note LastModified by Organization Details LastModified Time losartan 50 mg tablet TAKE 1 TABLET BY MOUTH EVERY DAY 01/20 completed Not Available Not Available Not Available metformin 500 mg tablet TAKE 1 TABLET BY MOUTH TWICE DAILY active Not Available Not Available No t Available bupropion HCl SR 150 mg tablet,12 hr sustained-r elease TAKE 1 TABLET BY MOUTH DAILY X 3 DAYS 03/02 completed Not Available Not Available Not Available atorvastati n 80 mg tablet TAKE 1 TABLET BY MOUTH EVERY EVENING 2024 active Not Available Not Available Not Avai lable doxycycline hyclate 100 mg capsule TAKE 1 CAPSULE BY MOUTH TWICE DAILY WITH FOOD UNTIL GONE. REPEAT 2 TIMES DAILY FOR 5-7 DAYS AT A TIME NEEDED FLARES THEREAFTE R active Not Available Not Available No t Available atorvastati n 20 mg tablet TAKE 1 TABLET BY MOUTH EVERY DAY 01/20 completed Not Available Not Available Not Available clindamycin HCl 300 mg capsule 05/28 completed Not Available Not Available Not Available ibuprofen 800 mg tablet 03/27 completed Not Available Not Available Not Available metoprolol succinate ER 50 mg tablet,exte nded release 24 hr TAKE 1 TABLET BY MOUTH TWICE DAILY 05/28 completed Not Available Not Available Not Available valacyclovi r 1 gram tablet TAKE 1 TABLET BY MOUTH EVERY [...] 1 TABLET BY MOUTH FOUR TIMES DAILY active Not Available Not Available [...] TABLET BY MOUTH EVERY 8 HOURS NEEDED 01/20 completed Not Available Not Available Not Available acetaminoph en 500 mg tablet TAKE 2 TABLETS BY MOUTH EVERY 6 HOURS NEEDED FOR PAIN active Not Available Not Available No t Available dextroamphe tamine-amph etamine ER 20 mg 24hr capsule,ext end release 05/28 completed Not Available Not Available Not Available gemfibrozil 600 mg tablet TAKE ONE TABLET BY MOUTH TWICE DAILY 03/27 completed Not Available Not Available Not Available pantoprazol e 40 mg tablet,albaro yed release TAKE 1 TABLET BY MOUTH EVERY DAY BEFORE A MEAL active Not Available Not Available No t Available naproxen sodium 550 mg tablet 03/27 [...] Available Not Available gabapentin 300 mg capsule 01/20 completed Not Available Not Available Not Available aspirin 81 mg chewable tablet Chew 1 tablet every day by oral route. 2024 active Not Available Not Available Not Avai lable gabapentin 100 mg capsule 01/20 completed Not Available Not Available Not Available metoprolol succinate ER 25 mg tablet,exte nded release 24 hr 01/20 completed Not Available Not Available Not Available ibuprofen 600 mg tablet TAKE 1 TABLET BY MOUTH THREE TIMES DAILY NEEDED FOR PAIN active Not Available Not Available No t Available dextroamphe tamine-amph etamine ER 30 mg 24hr capsule,ext end release 05/28 completed Not Available Not Available Not Available ondansetron 4 mg disintegrat ing tablet 03/02 completed Not Available Not Available Not Available metformin ER 500 mg tablet,exte nded release 24 hr TAKE 1 TABLET BY MOUTH DAILY IN THE MORNING FOR DIABETES 01/20 completed Not Available Not Available Not Available metronidazo le 0.75 % topical gel APPLY THIN LAYER TOPICALLY TO THE AFFECTED AREA OF FACE 1 TO 2 TIMES DAILY active Not Available Not Available No t Available dicyclomine 10 mg capsule TAKE 1 CAPSULE BY MOUTH TWICE DAILY NEEDED FOR ABDOMINAL PAIN 01/20 completed Not Available Not Available Not Available naproxen 500 mg tablet 03/27 completed Not Available Not Available Not Available Microlet Lancet USE TWICE DAILY active Not Available Not Available No t Available levothyroxi ne 112 mcg tablet TAKE 1 TABLET BY MOUTH DAILY AT 7 AM FOR HYPOTHYRO IDISM active Not Available Not Available No t Available oxycodone 5 mg tablet 01/20 completed Not Available Not Available Not Available Amphetamine Salt Combo 10 mg tablet 05/28 completed Not Available Not Available Not Available bupropion HCl XL 150 mg 24 hr tablet, extended release TAKE 1 TABLET BY MOUTH DAILY AT 7 AM active Not Available Not Available No t Available metoprolol tartrate 25 mg tablet 01/20 completed Not Available Not Available Not Available duloxetine 30 mg capsule,del ayed release [...] TAKE 1 TABLET BY MOUTH EVERY DAY 03/02 completed Not Available Not Available Not Available Brilinta 90 mg tablet TAKE 1 TABLET BY MOUTH TWICE DAILY 01/20 completed Not Available Not Available Not Available Farxiga 10 mg tablet TAKE 1 TABLET BY MOUTH EVERY DAY 01/20 completed Not Available Not Available Not Available naloxone 4 mg/actuatio n nasal spray CALL 911. SPR CONTENTS OF ONE SPRAYER (0.1ML) INTO ONE NOSTRIL. REPEAT IN 2-3 MIN IF SYMPTOMS OF OPIOID EMERGENCY PERSIST, ALTERNATE NOSTRILS 01/20 completed Not Available Not Available Not Available OneTouch Delica Plus Lancet 33 gauge TEST THREE TIMES DAILY PER TEST STRIP INSTRUCTI ONS active Not Available Not Available No t Available Contour Plus Test Strip USE TWICE DAILY DIRECTED active Not Available Not Available No t Available Contour Plus Blue Meter USE TO TEST BLOOD SUGAR TWICE DAILY active Not Available Not Available No t Available Vitals Date Recorded Body height Body weight Body mass index (BMI) Body temperature Heart rate Oxygen saturation Oxygen saturation in Arterial blood by Pulse oximetry Systolic And Diastolic Provider Name and Address Organization Details Last Updated DateTime 7 182.88 cm 892015. 71 g 35.1 kg/m2 98 [degF] 70 /min 97 % 97 % 128/84 mm[Hg] Jenniffer Krueger MA [facility] 7 12:54:09 Date Recorded Body weight Heart rate Oxygen saturation Oxygen saturation in Arterial blood by Pulse oximetry Body temperature Systolic And Diastolic Provider Name and Address Organization Details Last Updated DateTime 5 335373. 67 g 71 /min 98 % 98 % 98.2 [degF] 141/91 mm[Hg] Berna Parish [facility] 5 15:29:59 Date Recorded Body height Body mass index (BMI) Body weight Heart rate Body temperature Oxygen saturation Oxygen saturation in Arterial blood by Pulse oximetry Systolic And Diastolic Provider Name and Address Organization Details Last Updated DateTime 7 182.88 cm 33.2 kg/m2 549557. 41 g 76 /min 98.3 [degF] 99 % 99 % 130/76 mm[Hg] Jenniffer Krueger MA [facility] 7 10:44:17 Date Recorded Body weight Body mass index (BMI) Body height Body temperature Oxygen saturation Oxygen saturation in Arterial blood by Pulse oximetry Heart rate Systolic And Diastolic Provider Name and Address Organization Details Last Updated DateTime 8 389582. 65 g 34.7 kg/m2 182.88 cm 98.1 [degF] 96 % 96 % 73 /min 130/96 mm[Hg] Jenniffer Krueger MA [facility] 8 12:36:57 Date Recorded Body height Body mass index (BMI) Body weight Body temperature Oxygen saturation Oxygen saturation in Arterial blood by Pulse oximetry Heart rate Systolic And Diastolic Provider Name and Address Organization Details Last Updated DateTime 3 182.88 cm 35.1 kg/m2 379260. 42 g 98.1 [degF] 97 % 97 % 72 /min 112/72 mm[Hg] Jenniffer Krueger MA [place] [facility] 14:14:18 Social History Question Answer Notes LastModified by Organizat ion Details LastModified Time Tobacco Smoking Status Former Smoker Jenniffer Krueger MA null, [place] [facility] 05/28/2023 14:14:29 Do You Have An Advance Directive? No [id number] Information not available 06/14/2020 Are You Blind Or Do You Have Difficulty Seeing? No [id number] Information not available 06/14/2020 What Is Your Level Of Caffeine Consumption? Heavy [id number] Information not available 06/14/2020 How Much Tobacco Do You Chew? None [id number] Information not available 06/14/2020 Are You Deaf Or Do You Have Serious Difficulty Hearing? No [id number] Information not available 06/14/2020 What Type Of Diet Are You Following? REGULAR [id number] Information not available 06/14/2020 Which Illicit Or Recreational Drugs Have You Used? None [id number] Information not available 06/14/2020 Education 2 Year College Information not available 01/02/2016 Are There Any Guns Present In Your Home? No [id number] Information not available 06/14/2020 Hard Of Hearing Or Deaf In One Or Both Ears? No Information not available 01/02/2016 Legally Blind In One Or Both Eyes? No Information no t available 01/02/2016 Live Alone Or With Others? With Others Information not available 01/02/2016 What Was The Date Of Your Most Recent Tobacco Screening? 01/20/2025 [email or web address] Information not available 01/20/2025 How Many Children Do You Have? 1 [id number] Information not available 06/14/2020 Seat Belts Used Routinely Yes Information not available 01/02/2016 Are You Sexually Active? Yes [id number] Information not available 06/14/2020 Smoke Alarm In Home Yes Information not available 01/02/2016 Are You Passively Exposed To Smoke? No Information no t available 01/02/2016 How Much Tobacco Do You Smoke? 0.25 PPD [id number] Information not available 06/14/2020 Do You Use Sunscreen Routinely? Yes [id number] Information not available 06/14/2020 Has Tobacco Cessation Counseling Been Provided? Yes Information not available 05/28/2023 On What Date Was Tobacco Cessation Counseling Provided? 01/20/2025 [email or web address] Information not available 01/20/2025 How Many Years Have You Smoked Tobacco? 5 [id number] Information not available 06/14/2020 Do You Have Difficulty Walking Or Climbing Stairs? No [id number] Information not available 06/14/2020 Sex: Unknown Functional Status Question Answer Note LastModified by Organizat ion Details LastModified Time Do you or have you ever used any other forms of tobacco or nicotine? No Information not available 05/28/2023 What is your level of alcohol consumption? Moderate [id number] Information not available 06/14/2020 Are you currently employed? Yes [id number] Information not available 06/14/2020 Do you have difficulty doing errands alone? No [id number] Information not available 06/14/2020 Are you able to care for yourself independently? 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 No [id number] Information not available 06/14/2020 What is your exercise level? Moderate [id number] Information not available 06/14/2020 Mental Status Question Answer Note LastModified by Organization D etails LastModified Time Do you have difficulty concentrating, remembering or making decisions? No [id number] Information no t available 06/14/2020 Family History Relationship Description Onset Age of this Age Resolved Age Notes LastModified by Organization Details LastModified Time Mother Hypertensive disorder Not available 2015 14:11:28 Mother Heart disease Not available 2015 14:11:28 Father Heart disease Not available 2015 14:11:28 Father Hypertensive disorder Not available 2015 14:11:28 Medical History Condition Response Anxiety Disorder Y High Blood Pressure Y Depression Y Immunizations Vaccine Type Date Status Note Provider Nam e and Address Organization Details Recorded Time COVID-19, mRNA, LNP-S, PF, 30 mcg/0.3 mL dose 12/06/2020 completed Sherman Hernandez [place] null, [place] - [facility] 12/02/2024 13:18:58 COVID-19, mRNA, LNP-S, PF, 30 mcg/0.3 mL dose 01/05/2021 completed Sherman Hernandez [place], [place] - [facility] 12/02/2024 13:18:58 Influenza, split virus, quadrivalent, PF 10/02/2023 completed Not Available [facility] 15:09:41 Past Encounters Encounter ID Performer Location Encounter Start Date Encounter Closed Date Diagnosis/Indication Diagnosis SNOMED-CT Code Diagnosis ICD10 Code Diagnosis IMO Codes Diagnosis Note [id number] MD Nakita Corona (Adult Med) [address] [place] [address] 24338-577 0 10/13/2015 16:47:33 10/14/2015 17:19:07 Essential hypertension 26618220 I10 Recurrent genital herpes simplex 104149874 A60.00 [id number] MD Nakita Corona (Adult Med) [address] [place] [address] 97129-837 0 12/13/2015 14:01:07 12/13/2015 15:39:59 Influenza-like illness 93059799 B34.9 Symptomati c management Recurrent herpes simplex of penis 388695923 A60.01 Essential hypertension 39965668 I10 Labs to be done today. [id number] MD Nakita Corona (Adult Med) [address] [place] [address] 89628-988 0 01/02/2016 13:58:01 01/02/2016 14:49:09 Thyroid stimulating hormone level above reference range 463779674 R79.89 Hypertriglyceridemia 302 317249 E78.1 [id number] MD Nakita Corona (Adult Med) [address] [place] [address] 98649-228 0 02/15/2016 16:25:08 02/15/2016 17:30:57 Essential hypertension 11299454 I10 Labs to be done today. Thyroid st imulating hormone level above reference range 620597420 R79.89 Hypertriglyceridemia 302 534598 E78.1 Jaw pain 328754766 R68.8 4 Post dental work [id number] MD Nakita Corona (Adult Med) [address] [place] [address] 59243-441 0 09/12/2016 12:32:04 09/12/2016 14:57:32 Hypertriglyceridemia 269400912 E78.1 Essential hypertension 24409620 I[address] imulating hormone level above reference range 191219046 R79.89 [id number] MD Nakita Corona (Adult Med) [address] [place] [address] 74832-893 0 03/05/2017 10:03:02 03/05/2017 18:26:36 Hypertriglyceridemia 986317509 E78.[address] imulating hormone level above reference range 647376790 R79.89 Thyroid antibodies nl. FT4 just outside low normal Essential hypertension 77475780 I10 Pain in right foot 18399 06073 51131 M79.363 [id number] MD Nakita Corona (Adult Med) [address] [place] [address] 04878-343 0 03/27/2018 11:57:51 03/27/2018 13:25:22 Essential hypertension 75951090 I10 restart BP meds immediatel y Hypertriglyceridemia [address] imulating hormone level above reference range 389013458 R79.89 [id number] [facility] [address] [place] [address] 89859-350 0 05/28/2023 13:56:21 05/28/2023 15:02:53 Type 2 diabetes mellitus 11044524 E11.9 Recurrent genital herpes simplex 350705584 A60.[address] imulating hormone level above reference range 575616732 R79.89 Hyperlipidemia 46056447 E78.5 Essential hypertension 63914264 I10 Cont BP med Screening for malignant neoplasm of prostate 371868202 Z12.5 [id number] Duglas Campbell MD [facility] (Adult Med) [address] [place] [address] 01/20/2025 15:09:12 01/21/2025 10:10:03 Essential hypertension 74279968 I10 Cont BP med Hyperlipidemia 91373800 E78.5 Type 2 lópez betes mellitus 78294120 E11.[address] imulating hormone level above reference range 144204275 R79.89 Follow TSH Butterfly rash 72779905 R21 4017930 History of placement of stent for coronary artery disease 190375210 Z95.5 0865937 Coronary atherosclerosis 688326649 I25.10 08824061 Recurrent genital herpes simplex 143019961 A60.00 Gastroesop hageal reflux disease 523751841 K21.9 72875600 Mood disorder 95805337 F 39 92089 F/u BH as scheduled Finding re lated to sleep 415751476 G47.30 [id number] Health Concerns Section Related Observation LastModified by Organization Detai ls LastModified Time None Recorded Concern Status LastModified by Organization Details LastModified Time None Recorded Advance Directives Directive N: Payers Insurance Date Sequence Insurance Name Policy Number Policy Luo Covered Member ID Luo Member ID Guarantor Name 01/20/2025 1 [facility] - DOS PRIOR TO 2021 (MEDICAID REPLACEMENT - HMO) Andrew Sullivan [id number] Andrew Sullivan 01/20/2025 1 [facility] [id number] Andrew Sullivan [id number] Andrew Sullivan 05/05/2025 1 [place] ON OR AFTER 2025 (MEDICAID REPLACEMENT - HMO) ICAIDT Andrew Sullivan [id number] Andrew Sullivan 05/05/2025 1 [place] PRIOR TO 2025 (MEDICAID REPLACEMENT - HMO) [id number] Andrew Sullivan [id number] Andrew Sullivan 01/20/2025 1 [place] Andrew Sullivan [id number] Andrew Sullivan 01/20/2025 1 [place] [facility] - DOS PRIOR TO 2025 (MEDICAID REPLACEMENT - HMO) [id number] Andrew Sullivan [id number] Andrew Sullivan Notes Date Note Type Note Provider Name and Address Organization Details Recorded Time 09/12/2016 text/html No new complaints. Stopped gemfibrozil because of diarrhea and abdominal discomfort Duglas Campbell MD Attn: [address] [place], [address], [facility] 09/12/2016 13:33:55 03/05/2017 text/html Devel;oped pain in ball of right foot which worsened over a two month period. Seen in Urgent care. Xrays unremarkable. No relief from naproxen. Duglas Campbell MD Attn: [address] [place], [address], [facility] 03/05/2017 11:21:00 03/27/2018 text/html Needs med refils. pain in foot has resolved. Out of BP meds for about 5-6 days Duglas Campbell MD Attn: [address] [place], [address], [facility] 03/27/2018 13:18:32 05/28/2023 text/html Recently diagnosed with DM. Started on Farxiga and metformin. Blood glucose levels average 200 mg/dl. Urinary frequency has decreased Duglas Campbell MD Attn: [address] [place], [address], [facility] 05/28/2023 15:02:16 01/20/2025 text/html Here for f/u. was recently hospitalized for depression flare. Needs f/u with BH. Was started on thyroid supplement( TSH 8.1 ; FT4 0.67) Worsening bilateral malar rash ELINOR symptoms Duglas Campbell MD Attn: Accounting[address] [place], [address], [facility] 01/20/2025 16:44:19
--- OUTSIDE RECORDS SUMMARY | 2025-05-14 22:26 | XMS_ITS | Clinical Summary ---
Author Organization [facility] Address [address] [place] [address] Phone Care Team Providers Care Business Systems Advisor Name Role Phone Duglas Campbell MD Primary [...] drink = 0.6 oz pur e alcohol) [facility] Utilities Answer Date Recorded In the past 12 months has e [place], gas, oil, or water Punchd threatened to shut off services in your home? No 11/02/2023 Social Connection and Isolation Panel Answer Date Recorded In a typical week, how many times do you talk on the phone with family, friends, or neighbors? Twice a week 11/02/19 How often do you get togethe r with friends or relatives? Three times a week 11/02/2023 How often do you attend [facility] or muslim services? 1 to 4 times per year 11/02/2023 Do you belong to any clubs o r organizations such as islam groups, unions, fraternal or athletic groups, or [...] medical care, and heating? Patient declined 11/02/2023 [facility] [place] of Occupat ional Health - Occupational Stress [...] place to sleep or slept in a halfway (including now)? No 11/02/2023 Sex and Gender [...] 2:35 AM CDT Height 185.4 cm (6' 1) 11/04/2023 2:35 AM CDT Body Mass Index 33.38 11/04/2023 2:35 AM CDT Plan of Treatment Health Maintenance Due Date Last Done Comments Hepatitis C Virus (HCV) Screening 1978 TdaP Immunization 1978 Hepatitis B Immunization (1 of 3 - 19+ 3-dose series) 1997 Cologuard 2023 Colonoscopy 2023 Colorectal Cancer Screening 2023 Immunochemical Fecal Occult Blood 2023 Influenza Immunization (#1) 2025 SARS-COV-2 Immunization (3 - 2024- season) 2025 01/05/2021, 12/06/2020 Respiratory Syncytial Virus (RSV) Immunization (Adult) (1 - 1-dose 75+ series) 2053 Human Papillomavirus (HPV) Immunization Aged Out No longer eligible b ased on patient's age to complete this topic Meningococcal Immunization (ACWY) Aged Out No longer eligible b ased on patient's age to complete this topic Pneumococcal Immunization Combined Aged Out No longer eligible b ased on patient's age to complete this topic Rotavirus Immunization Aged Out No lo nger eligible based on patient's age to complete this topic Insurance [place] Advance Directives * Full Code (Latest Code Status on File) Date Activated Date Inactivated Comments 11/02/2023 3:32 PM 11/03/2023 4:53 PM CPR-Full Rommel atment: FULL ARREST: Attempt Resuscitation/CPR wit intubation and mechanical ventilation. PRE-ARREST: Use entire range of life support measures to stabilize the patient. Care Teams Business Systems Advisor Relationship Specialty Start Date End Date Duglas Campbell MD [address] [place] [address] PCP - General Internal Medicine 11/02/23
--- OUTSIDE RECORDS SUMMARY | 2025-05-14 22:26 | XMS_ITS | Clinical Summary ---
Author Organization [facility] Address [address] [place] [address] Phone Care Team Providers Care Steel Melter Name Role Phone Unavailable Primary Care Provider [...] mouth daily. Active naloxone (NARCAN) 4 mg/spray [place], Non-Aerosol EMERGENCY USE ONLY: Administer 1 spray [...] Prediabetes 10/15/2023 Increased anion gap metabolic acidosis Family History Medical History Relation Name Comments [...] on file Legal Sex Male 12:43 PM LEAD CLINICAL RESEARCH COORDINATOR Gender Identity Not on file Sexual Orientation [...] 5:55 AM CDT Height 185.4 cm (6' 1) 10/21/2023 5:55 AM CDT Body Mass Index [...] Flex Sig/CT Colonography Q 5 years 2023 DIABETES HBA1C Q 6 MONTHS 04/16/2024 10/15/2023 LDL CHOLESTEROL ANNUAL 10/15/2024 4, 10/16/2023 INFLUENZA VACCINE (#1) 2025 HPV VACCINES Aged Out No longer eligi ble based on patient's age to complete this topic Procedures Procedure Name Priority Date/Time Associated Diagnosis Comments LIPID RFLX Routine 10/16/2023 5:16 AM LEAD CLINICAL RESEARCH COORDINATOR HEMOGLOBIN A1C Routine 10/15/2023 1:36 PM LEAD CLINICAL RESEARCH COORDINATOR from Last 3 Months or Most Recently Relevant to Health Maintenance Results * (ABNORMAL) LIPID RFLX (10/16/2023 5:16 AM LEAD CLINICAL RESEARCH COORDINATOR) Pathologist [facility] CHOLESTEROL 175 <200 mg/dL 10/16/2023 6:50 AM LEAD CLINICAL RESEARCH COORDINATOR [facility] TRIGLYCERIDE 416(H) <150 mg/dL 10/16/2023 6:50 AM [facility] HDL 24(L) 40 - 59 mg/dL 10/16/2023 6:50 AM [facility] LDL CALCULATED 10/16/2023 6:50 AM [facility] Comment:Calculated LDL is no t accurate when the Triglyceride value exceeds 400. NON-HDL CHOLESTEROL 151(H) <130 mg/dL 10/16/2023 6:50 AM [facility] Blood Venipuncture / Unknown 10/16/2023 5:16 AM LEAD CLINICAL RESEARCH COORDINATOR 10/16/2023 6:16 AM [facility] - 10/16/2023 6:50 AM LEAD CLINICAL RESEARCH COORDINATOR TOTAL CHOLESTEROL mg/dL Desirable <200 Borderline high [...] . Kylee Li PA-C CHEMISTRY ORDERABLES Leslie l Result [facility] CLIA# [id number] [place] [address] * (ABNORMAL) HEMOGLOBIN A1C (10/15/2023 1:36 PM LEAD CLINICAL RESEARCH COORDINATOR) HEMOGLOBIN A1C 5.9(H) <=5.6 % 10/15/2023 6:38 PM [facility] EST. AVG GLUCOSE, A1C 123 mg/dL 10/15/2023 6:38 PM LEAD CLINICAL RESEARCH COORDINATOR [facility] Blood Venipuncture / Unknown 10/15/2023 1:36 PM LEAD CLINICAL RESEARCH COORDINATOR 10/15/2023 1:50 PM LEAD CLINICAL RESEARCH COORDINATOR Narrative [facility] - 10/15/2023 6:38 PM LEAD CLINICAL RESEARCH COORDINATOR HGB A1C INTERPRETATION NORMAL: <5.7% PRE-DIABETES: 5.7 - 6.4% DIABETES: 6.5% OR GREATER Klyee Li PA-C CHEMISTRY ORDERABLES Leslie l Result [facility] [place] [facility] CLIA# [id number] [place] [address] from Last 3 Months or Most Recently Relevant to Health Maintenance Insurance [facility] [employer] [facility] [place] Advance Directives For more information, please contact: [phone] * Full Code (Latest Code Status on File) Date Activated Date Inactivated Comments 10/21/2023 7:24 AM 10/24/2023 9:15 PM * Full Code Date Activated Date Inactivated Comments 10/17/2023 8:10 AM 10/20/2023 5:02 PM * Full Code Date Activated Date Inactivated Comments 10/15/2023 6:17 PM 10/16/2023 6:10 PM
--- OUTSIDE RECORDS SUMMARY | 2025-05-14 22:26 | XMS_ITS | Data Portability ---
Author Organization [place] [facility] [employer], Main Office Address [address] [place] [address] Assessment Encounter Date Assessment Date Assessment LastModified by Organization Details LastModified Time 01/25/2025 01/25/2025 Assessment: ELINOR PLMD Hypoventilation Plan: The following were reviewed and explained to the patient: primary care/referral note sleep studies General information on sleep disordered breathing, evaluation of sleep disordered breathing, treatment with PAP therapy, and living with PAP therapy were covered. Chapter 1 of educational DVD was shown. PSG is medically necessary to determine the degree of and management of sleep apnea. We discussed with the patient the impact of weight on: Sleep disordered breathing Mixed hyperlipidemia Hypertension DM CAD SIER[place] We discussed with the patient the benefit of PAP therapy on: Sleep disordered breathing Depression/Anxiet y Hypertension DM CAD [place] Educated the patient on sleep hygiene measures. Relaxing rituals to rest easy, understanding foods with positive and negative impact on sleep, creating a peaceful sleep environment, timing of exercise, using herbal sleep aids, and practicing sleep-friendly meditation were covered. To determine how much sleep is needed, the patient will assess where he falls on the spectrum, examine what lifestyle factors such as work schedules and stress are affecting the quality and quantity of sleep. In general, adults need 7-9 hours of sleep. Educated the patient regarding foods that promote sleep. These include but are not limited to cherries, bananas, toast, oatmeal, and warm milk. Educated the patient regarding foods and drinks to avoid before bedtime. These include but are not limited to aged cheese, chocolate, spicy foods, tomato-based sauces, soy, ginseng tea and processed meat. Advocated influenza vaccination annually and pneumonia vaccination in 2028. Advocated weight loss through diet and exercise. Patient's ideal body weight according to height and gender is up to 200 lbs. Encouraged patient to adjust caloric intake to maintain/achieve ideal body weight, emphasizing on fruits, vegetables, whole grains, and fat-free or low-fat products. These include lean meats, poultry, fish, beans, eggs, and nuts and foods that are low in saturated fats, trans-fats, cholesterol, salt (sodium), and glycemic index. Stressed the importance of regular exercise up to the patient's capacity limits. In this case, we recommend 20 min daily walking, 2 days a week of resistance training. Patient to monitor BP daily and bring records to PCP for further management. Follow-up: 1 week after diagnostic sleep study Not available 01/25/2025 15:26:23 02/18/2025 02/18/2025 Assessment: Hypertension DM CAD Mod OSAHS, AHI = 16 PLMD Hypoventilation Plan: The following were reviewed and explained to the patient: primary care/referral note [facility] home sleep study 02/10/25 AHI = 16 General information on sleep disordered breathing, evaluation of sleep disordered breathing, treatment with PAP therapy, and living with PAP therapy were covered. PSG is medically necessary to determine the management of sleep apnea. We discussed with the patient the impact of weight on: Sleep disordered breathing Mixed hyperlipidemia Hypertension DM CAD SIER[place] We discussed with the patient the benefit of PAP therapy on: Sleep disordered breathing Depression/Anxiet y Hypertension DM CAD [place] Educated the patient on sleep hygiene measures. Relaxing rituals to rest easy, understanding foods with positive and negative impact on sleep, creating a peaceful sleep environment, timing of exercise, using herbal sleep aids, and practicing sleep-friendly meditation were covered. To determine how much sleep is needed, the patient will assess where he falls on the spectrum, examine what lifestyle factors such as work schedules and stress are affecting the quality and quantity of sleep. In general, adults need 7-9 hours of sleep. Educated the patient regarding foods that promote sleep. These include but are not limited to cherries, bananas, toast, oatmeal, and warm milk. Educated the patient regarding foods and drinks to avoid before bedtime. These include but are not limited to aged cheese, chocolate, spicy foods, tomato-based sauces, soy, ginseng tea and processed meat. Advocated influenza vaccination annually and pneumonia vaccination in 2028. Advocated weight loss through diet and exercise. Patient's ideal body weight according to height and gender is up to 200 lbs. Encouraged patient to adjust caloric intake to maintain/achieve ideal body weight, emphasizing on fruits, vegetables, whole grains, and fat-free or low-fat products. These include lean meats, poultry, fish, beans, eggs, and nuts and foods that are low in saturated fats, trans-fats, cholesterol, salt (sodium), and glycemic index. Stressed the importance of regular exercise up to the patient's capacity limits. In this case, we recommend 20 min daily walking, 2 days a week of resistance training. Patient to monitor BP daily and bring records to PCP for further management. Follow-up: 1 week after titration sleep study Not available 02/18/2025 16:13:29 Plan of Treatment Reminders Order Date Submit Date Provider Last Modified By Organization Details Last Modified Time Details Appointments None recorded. Lab None recorded. Referral None recorded. Procedures None recorded. Surgeries None recorded. Imaging polysomnog elisha, titration study - Please call patient to schedule. [address], [address] [place] [address], [id number], 11:56:38 polysomnog elisha, diagnostic , 6 yrs or older - Please call patient to schedule. [address], [address] [place] [address], [address], 16:02:45 Medication Orders None recorded. Patient TargetsNo targets recorded. Patient InstructionsNo instructions recorded. Reason for Referral None Reported. Results Created Date Observation Date Name Description Value Unit Range Abnormal Flag Note LastModifiedBy Organization Detail LastModifiedTime 02/17/2002/10/2025 home sleep study No observ ation record ed. [address], [address], 02/16/2025 09:40:33 Result Notes None recorded. Problems Name Problem SNOMED Code Status Onset Date Resolution Date Notes Provider Name and Address Organization Details Recorded Time Hypertensive disorder 65254478 Active 2016 Samuel Salazar MD [address] [facility], [address], [place], [address], [employer] 5 19:10:47 Mixed hyperlipidemia 099699818 Active 2024 Samuel Salazar MD [address], [address], [place], [address], [employer] [facility] 5 19:11:01 Obstructive sleep apnea syndrome 11495075 Active 2024 Samuel Salazar MD [address], [address], [place], [address], [employer] [facility] 5 13:17:39 Notes:Medical History: Depre ssion/Anxiety Bruxism Obesity with mod OSAHS, AHI = 16, 02/10/25 Hypothyroidism Mixed hyperlipidemia Hypertension T2DM CAD SIERRA HSV-2 infection Procedure History: 3 coronary artery stent placement 2023 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 Medical Equipment None Reported. Allergies Allergen ID Allergen Name Allergen Category Reaction Reaction Severity Criticality Documentation Date Start Date Code Code System Note Provider Name and Address Organization Details Recorded Time 70704 Product containin g penicilli n (product) medicatio n Not available Not available Not available 10/10/2022 29152 8001 SNOMED Not Available [facility] 3 19:14:56 Medications Name Sig Start Date Stop Date Status Note LastModified by Organization Details LastModified Time metformin 500 mg tablet TAKE 1 TABLET BY MOUTH TWICE DAILY active Not Available Not Available No t Available bupropion HCl SR 150 mg tablet,12 hr sustained-r elease 02/15 completed Not Available Not Available Not Available atorvastati n 80 mg tablet TAKE 1 TABLET BY MOUTH EVERY DAY IN THE EVENING active Not Available Not Available No t Available valacyclovi r 1 gram tablet TAKE 1 TABLET BY MOUTH EVERY DAY active Not Available Not Available No t Available meloxicam 15 mg tablet TAKE 1 TABLET BY MOUTH ONCE A DAY NEEDED FOR PAIN 01/25 completed Not Available Not Available Not Available dextroamphe tamine-amph etamine 10 mg tablet TAKE 1 TABLET BY MOUTH EVERY DAY FOR 30 DAYS 04/25 completed Not Available Not Available Not Available sertraline 100 mg tablet TAKE 1.5 TABLETS BY MOUTH EVERY MORNING 04/25 completed Not Available Not Available Not Available clonazepam 1 mg tablet TAKE 1 TABLET BY MOUTH FOUR TIMES DAILY NEEDED FOR ANXIETY active Not Available Not Available No t Available acyclovir 400 mg tablet TK 1 T PO BID 04/25 completed Not Available Not Available Not Available tramadol 50 mg tablet TAKE 1 TABLET EVERY 8 HOURS BY ORAL ROUTE NEEDED. 01/25 completed Not Available Not Available Not Available acetaminoph en 500 mg tablet TAKE 2 TABLETS BY MOUTH EVERY 6 HOURS NEEDED FOR PAIN 02/15 completed Not Available Not Available Not Available OneTouch Ultra Test strips TEST BLOOD SUGAR THREE TIMES DAILY 02/15 completed Not Available Not Available Not Available gemfibrozil 600 mg tablet TAKE ONE TABLET BY MOUTH TWICE DAILY 04/25 completed Not Available Not Available Not Available pantoprazol e 40 mg tablet,albaro yed release TAKE 1 TABLET BY MOUTH EVERY DAY BEFORE A MEAL active Not Available Not Available No t Available losartan 25 mg tablet TAKE 1 TABLET BY MOUTH EVERY DAY active Not Available Not Available No t Available metoprolol tartrate 50 mg tablet TAKE 1 TABLET BY MOUTH TWICE DAILY active Not Available Not Available No t Available dextroamphe tamine-amph etamine 15 mg tablet TAKE 1 TABLET BY MOUTH EVERY DAY 01/25 completed Not Available Not Available Not Available aspirin 81 mg chewable tablet CHEW AND SWALLOW 1 TABLET BY MOUTH DAILY AT 7 AM FOR BLOOD THINNER active Not Available Not Available No t Available ibuprofen 600 mg tablet TAKE 1 TABLET BY MOUTH THREE TIMES DAILY NEEDED FOR PAIN active Not Available Not Available No t Available metformin ER 500 mg tablet,exte nded release 24 hr TAKE 1 TABLET BY MOUTH DAILY IN THE MORNING FOR DIABETES 02/15 completed Not Available Not Available Not Available dicyclomine 10 mg capsule TAKE 1 CAPSULE BY MOUTH TWICE DAILY NEEDED FOR ABDOMINAL PAIN 01/25 completed Not Available Not Available Not Available naproxen 500 mg tablet 04/25 completed Not Available Not Available Not Available Microlet Lancet USE TWICE DAILY active Not Available Not Available No t Available levothyroxi ne 112 mcg tablet TAKE 1 TABLET BY MOUTH DAILY AT 7 AM FOR HYPOTHYRO IDISM active Not Available Not Available No t Available bupropion HCl XL 150 mg 24 hr tablet, extended release TAKE 1 TABLET BY MOUTH DAILY AT 7 AM active Not Available Not Available No t Available duloxetine 60 mg capsule,del ayed release TAKE 1 CAPSULE BY MOUTH TWICE DAILY active Not Available Not Available No t Available fenofibrate 54 mg tablet 01/25 completed Not Available Not Available Not Available Farxiga 10 mg tablet TAKE 1 TABLET BY MOUTH EVERY DAY 01/25 completed Not Available Not Available Not Available OneTouch Delica Plus Lancet 33 gauge TEST THREE TIMES DAILY PER TEST STRIP INSTRUCTI ONS 02/15 completed Not Available Not Available Not Available Contour Plus Blue Meter USE TO TEST BLOOD SUGAR TWICE DAILY active Not Available Not Available No t Available Vitals Date Recorded Heart rate Respiratory rate Provider N jocelin and Address Organization Details Last Updated DateTime 01/25/2025 68 /min 15 /min Samuel Salazar MD [address], [place], [address], [place] [employer] [facility] [employer] 01/25/2025 15:10:08 Date Recorded Body weight Body mass index (BMI) Body height Body temperature Heart rate Oxygen saturation Oxygen saturation in Arterial blood by Pulse oximetry Systolic And Diastolic Provider Name and Address Organization Details Last Updated DateTime 5 428358. 98 g 35 kg/m2 185.42 cm 98.2 [degF] 68 /min 98 % 98 % 110/78 mm[Hg] Beulah Reyes MA [place] [employer] [facility] [employer] 14:44:30 Date Recorded Heart rate Respiratory rate Provider N jocelin and Address Organization Details Last Updated DateTime 02/18/2025 63 /min 14 /min Samuel Salazar MD [address], [place], [address], [place] [employer] [facility] [employer] 02/18/2025 16:14:24 Date Recorded Body height Body mass index (BMI) Body weight Body temperature Heart rate Oxygen saturation Oxygen saturation in Arterial blood by Pulse oximetry Systolic And Diastolic Provider Name and Address Organization Details Last Updated DateTime 5 185.42 cm 35.2 kg/m2 630109. 16 g 98 [degF] 63 /min 98 % 98 % 110/82 mm[Hg] Beulah Reyes MA [place] [employer] [facility] [employer] 15:36:35 Social History Question Answer Notes LastModified by Organizat ion Details LastModified Time Tobacco Smoking Status Former Smoker Beulah GroMARY ELLEN ann [place] [facility] [employer] 01/25/2025 14:40:33 What Is Your Level Of Caffeine Consumption? Heavy Information not available 01/25/2025 In The 14 Days Before Symptom Onset, Have You Had Close Contact With A Laboratory-confir med COVID-19 While That Case Was Ill? No Information not available 01/25/2025 In The 14 Days Before Symptom Onset, Have You Had Close Contact With A Person Who Is Under Investigation For COVID-19 While That Person Was Ill? No Information not available 01/25/2025 What Type Of Diet Are You Following? DIABETIC Information not available 01/25/2025 Do You Have An Electrostatic Air Filter? No Information not available 01/25/2025 When Did You Quit Smoking? 6-10yearssin celastcigare tte Information not available 01/25/2025 Do You Have A Humidifier? No Information not available 01/25/2025 Do You Have Moisture Problems In Your Home? No Information not available 01/25/2025 What Was The Date Of Your Most Recent Tobacco Screening? 02/18/2025 Information not available 02/18/2025 Do You Have Any Pets? No Information not available 01/25/2025 Do You Use Your Seat Belt Or Car Seat Routinely? Yes Information not available 01/25/2025 Do You Have Smoke And Carbon Monoxide Detectors In Your Home? Yes Information not available 01/25/2025 Are You Passively Exposed To Smoke? No Only Outside Information not available 01/25/2025 Do You Use Sunscreen Routinely? No Information not available 01/25/2025 Have You Recently Traveled Abroad? No Information not available 01/25/2025 Do You Have Any Dietary Restrictions? No Information not available 01/25/2025 Sex: Unknown Functional Status Question Answer Note LastModified by Organizat ion Details LastModified Time Do you use any illicit or recreational drugs? No Information not available 01/25/2025 Do you or have you ever used any other forms of tobacco or nicotine? No Information not available 01/25/2025 What is your level of alcohol consumption? None Information not available 01/25/2025 Have you been exposed to chemicals or toxins? not that aware of Information not available 01/25/2025 What is your exercise level? Occasional Information not available 01/25/2025 Mental Status Question Answer Note LastModified by Organization D etails LastModified Time Do you feel stressed (tense, restless, nervous, or anxious, or unable to sleep at night)? [id number] Information not available 01/25/2025 Family History Relationship Description Onset Age of this Age Resolved Age Notes LastModified by Organization Details LastModified Time Mother Hypertensive disorder [email or web address] Not available 2024 19:08:57 Mother Heart disease [email or web address] Not available 2024 19:09:08 Mother Myocardial infarction [email or web address] Not available 01/25 15:21:41 Father Hypertensive disorder [email or web address] Not available 2024 19:09:16 Father Heart disease [email or web address] Not available 2024 19:09:22 Father Myocardial infarction [email or web address] Not available 01/25 15:21:50 Paternal Uncle Heart disease [email or web address] Not available 2024 15:20:00 Paternal Grandfather Heart disease [email or web address] Not available 2024 15:20:30 Paternal Grandmother Cerebrovascu lar accident [email or web address] Not available 15:20:47 Maternal Aunt History of cholecystect ashanti [email or web address] Not available 2024 15:21:32 Sister Malignant neoplasm of breast [email or web address] Not available 2024 15:23:03 Sister Diabetes mellitus [email or web address] Not available 2024 15:23:16 Medical History No medical history recorded. Past Encounters Encounter ID Performer Location Encounter Start Date Encounter Closed Date Diagnosis/Indication Diagnosis SNOMED-CT Code Diagnosis ICD10 Code Diagnosis IMO Codes Diagnosis Note [id number] Samuel Salazar MD [facility] [address] [address] 01/25/2025 14:12:22 01/26/2025 11:57:39 Obstructive sleep apnea syndrome 96326384 G47.33 G47.30 E66.2 G47.61 [id number] Samuel Salazar MD [facility] [place] [address] [address] 02/18/2025 15:01:41 02/19/2025 11:43:53 Obstructive sleep apnea syndrome 04637962 G47.33 G47.30 E66.2 G47.61 I10 E11.9 I25.10 550280 Health Concerns Section Related Observation LastModified by Organization Detai ls LastModified Time None Recorded Concern Status LastModified by Organization Details LastModified Time None Recorded Advance Directives Directive None Recorded Payers Insurance Date Sequence Insurance Name Policy Number Policy Luo Covered Member ID Luo Member ID Guarantor Name 02/22/2025 1 [facility] PRIOR TO 03/12/2025 (MEDICAID REPLACEMENT - HMO) [id number] Leighton Sullivan [id number] Leighton Sullivan 02/15/2025 1 [facility] [id number] Leighton Sullivan [id number] Leighton Sullivan 02/15/2025 2 [place] [facility] Leighton Sullivan [id number] Leighton Sullivan Notes Date Note Type Note Provider Name and Address Organization Details Recorded Time 5 text/html Primary care/Referring provider: Duglas Campbell MD At home, the patient sleeps from 12 am to 10 am and wakes up without an alarm. Snoring: heavy, since .Snorting: noChoking: yesCoughing: yesGasping: yesGagging: yesSighing: yesWitnessed apnea: yesTwitching or jerking of leg(s), arm(s), body, head: yesTeeth grinding: yesTeeth clenching: yesSleeptalking: yesSleepwalking: noSleep crying: noBedwetting: noTongue/lip/gum/cheek biting: noSleeping with open mouth: yesSleep paralysis: noHypnagogic hallucinations: noHypnopompic hallucinations: noVivid dreams: yes, continuing a conversationDifficulty with sleep onset: yesDifficulty with sleep maintenance: yesSleep interruptions: nocturia x 2, choking, snoringPatient wakes up with: fatigue, xerostomia, sore throat, hoarse voice, headaches, jaw pain, confusion, cognitive impairment, mobility impairmentDaytime cataplexy: noMorning hypersomnolence: yesAfternoon hypersomnolence: yesCaffeine sources in diet: soda 2 liters per day Associated medical and psychiatric conditions:Congestive heart failure: noCoronary artery disease: yesMyocardial infarction: noHypertension: yesStroke: noBronchial asthma: noChronic obstructive pulmonary disease: noDepression: yesBipolar disorder: noAnxiety: yesPanic disorder: noPosttraumatic stress disorder: noAttention deficit and hyperactivity disorder: noObsessive Compulsive disorder: noSchizophrenia: noSchizoaffective disorder: noPersonality disorder: noChronic analgesic use: noChronic sedative/hypnotic use: no EPWORTH SLEEPINESS SCALE (ESS) CHANCE OF DOZING SCORE0 = would never doze1 = slight chance of dozing2 = moderate chance of dozing3 = high chance of dozing SITUATION AND CHANCE OF DOZINGSitting and reading - 3Watching television - 3Sitting inactive in a public place (e.g. a theater or meeting) - 0As a passenger in a car for an hour without a break - 0Lying down to rest in the afternoon when circumstances permit - 3Sitting and talking to someone - 0Sitting quietly after lunch without alcohol - 1In a car, while stopped for a few minutes in the traffic - 0TOTAL SCORE 10Subjectively, patient has a moderate chance of dozing. Samuel Salazar MD [address] [place] [address], [address], [place] [facility] 01/25/2025 15:35:04 5 text/html Primary care/Referring provider: Duglas Campbell MD During the [facility] home sleep study on 02/10/25, AHI = 16. At home, the patient sleeps from 12 am to 10 am and wakes up without an alarm. Snoring: heavy, since .Snorting: noChoking: yesCoughing: yesGasping: yesGagging: yesSighing: yesWitnessed apnea: yesTwitching or jerking of leg(s), arm(s), body, head: yesTeeth grinding: yesTeeth clenching: yesSleeptalking: yesSleepwalking: noSleep crying: noBedwetting: noTongue/lip/gum/cheek biting: noSleeping with open mouth: yesSleep paralysis: noHypnagogic hallucinations: noHypnopompic hallucinations: noVivid dreams: yes, continuing a conversationDifficulty with sleep onset: yesDifficulty with sleep maintenance: yesSleep interruptions: nocturia x 2, choking, snoringPatient wakes up with: fatigue, xerostomia, sore throat, hoarse voice, headaches, jaw pain, confusion, cognitive impairment, mobility impairmentDaytime cataplexy: noMorning hypersomnolence: yesAfternoon hypersomnolence: yesCaffeine sources in diet: soda 2 liters per day Associated medical and psychiatric conditions:Congestive heart failure: noCoronary artery disease: yesMyocardial infarction: noHypertension: yesStroke: noBronchial asthma: noChronic obstructive pulmonary disease: noDepression: yesBipolar disorder: noAnxiety: yesPanic disorder: noPosttraumatic stress disorder: noAttention deficit and hyperactivity disorder: noObsessive Compulsive disorder: noSchizophrenia: noSchizoaffective disorder: noPersonality disorder: noChronic analgesic use: noChronic sedative/hypnotic use: no EPWORTH SLEEPINESS SCALE (ESS) CHANCE OF DOZING SCORE0 = would never doze1 = slight chance of dozing2 = moderate chance of dozing3 = high chance of dozing SITUATION AND CHANCE OF DOZINGSitting and reading - 3Watching television - 3Sitting inactive in a public place (e.g. a theater or meeting) - 0As a passenger in a car for an hour without a break - 0Lying down to rest in the afternoon when circumstances permit - 3Sitting and talking to someone - 0Sitting quietly after lunch without alcohol - 1In a car, while stopped for a few minutes in the traffic - 0TOTAL SCORE 10Subjectively, patient has a moderate chance of dozing. Samuel Salazar MD [address] [facility], [facility] [address], [place], [address], [place] [facility] 02/18/2025 16:25:31
[2025-05-15 00:09] VITALS: BP 144/91; PULSE 67; RESP 18; O2SAT 99
[2025-05-15 01:42] VITALS: BP 148/86; PULSE 66; RESP 18; O2SAT 98
[2025-05-15] MEDS: KETOROLAC (*BKC) 60 MG/2 ML VIAL IM (02:13)
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
[2025-05-15 03:47] VITALS: BP 149/72; PULSE 61; RESP 18; O2SAT 99
== END 2025-05-15 03:48 | disposition home or self-care (01) ==
PROVIDERS: Emergency Provider Registered Nurse; PCP Internal Medicine Gastroenterology
DX: S50.01XA Contusion of right elbow, initial encounter (principal); S46.911A Strain of unspecified muscle, fascia and tendon at shoulder and upper arm level, right arm, initial encounter; I25.10 Atherosclerotic heart disease of native coronary artery without angina pectoris; I10 Essential (primary) hypertension; E78.5 Hyperlipidemia, unspecified; Z95.5 Presence of coronary angioplasty implant and graft; V43.52XA Car driver injured in collision with other type car in traffic accident, initial encounter
CPT/HCPCS: 73030; 73080; 96372; 99284; J1885